=== PATIENT | female | born 1955 | race Caucasian/White ===

== ENCOUNTER 2024-12-01 11:07 | Inpatient (IN) | payer OTHER, SELFPAY ==
[2024-12-01] VITALS (26 sets, daily range): BP systolic 121–220; BP diastolic 43–84; PULSE 78–95; RESP 16–23; TEMP 37.4; O2SAT 91–100; BMI 25.7
--- NOTE | 2024-12-01 11:15 | DI.RAD.S_ITS ---
PROCEDURE: XR HIP W PEL IF DONE LT 2V INDICATIONS: left hip pain TECHNIQUE: 2 views of the hip were acquired. COMPARISON: None. FINDINGS: Bones: Nondisplaced fracture of the left femoral neck. Soft tissues: No suspicious soft tissue calcifications or masses. IMPRESSION: Nondisplaced fracture of the left femoral neck. Dictated by: Elpidio Martinez M.D. on 12/01/2024 at 11:48 Approved by: Elpidio Martinez M.D. on 12/01/2024 at 11:49
--- NOTE | 2024-12-01 11:20 | ED.GENADULT ---
HPI - General Adult General Chief complaint: Fall Stated complaint: Fall at 0700, Left hip pain Time Seen by Provider: 12/01/24 11:14 History of Present Illness HPI narrative: 69-year-old female lives at home and lost her balance 0730, falling to the left side, complained of left hip area discomfort since then. No other injuries recalled. She takes Plavix antiplatelet, but no other blood thinner medications. She would not strike her head. No nausea or vomiting. No focal weakness to face arm or leg. No focal numbness to face arm or leg. She denies pain to her neck, upper back, mid to low back. She is not seem to have any discomfort to her left thigh, knee, foreleg, ankle, foot. Related Data Home Medications Medication Instructions Recorded Confirmed clopidogrel 75 mg tablet 75 mg PO DAILY 12/01/24 12/01/24 Allergies Allergy/AdvReac Type Severity Reaction Status Date / Time lisinopril Allergy Verified 12/01/24 11:13 Patient History Social History household members: spouse Smoking Status: Former smoker Exam Narrative Exam Narrative: GENERAL: Well-developed patient, in mild distress. HEAD: Atraumatic. Normocephalic. EYES: Pupils equal round and reactive. Extraocular motions intact. No scleral icterus. No injection or drainage. ENT: Nose without bleeding, purulent drainage. Throat without erythema, tonsillar hypertrophy or exudate. Airway patent. NECK: Trachea midline. Non tender CARDIOVASCULAR: Regular rate and rhythm without murmurs, gallops, or rubs. RESPIRATORY: Clear to auscultation. Breath sounds equal bilaterally. No wheezes, rales, or rhonchi. GASTROINTESTINAL: Abdomen soft, non-tender, nondistended. EXTREMITIES: Tenderness to lateral trochanteric region left hip, mild tenderness left anterior hip. No limb length discrepancies. No tenderness along the left femur, knee, foreleg, ankle, foot/toes. BACK: Nontender without deformity or crepitance. No flank tenderness. NEURO: AOx3. Motor functions grossly nonfocal SKIN: No rash or erythema of visible areas Initial Vital Signs Initial Vital Signs: Vital Signs Pulse Oximetry 93 12/01/24 11:13 Course Orders Ordered: ED Orders 12/01/24 13:29 XR chest 1V Stat EKG-12 Lead Stat 12/01/24 13:46 Urinalysis and Microscopic Stat Urine Culture Stat 12/01/24 14:00 CBC Auto Diff [Complete Blood Count AUTO DIFF] Stat CMP [Comprehensive Metabolic Panel] Stat Creatine Kinase Stat Prothrombin Time INR Stat 12/01/24 18:51 BMP [Basic Metabolic Panel] Stat Acetaminophen (Acetaminophen 325 Mg Tablet) 650 mg PO Q6H [facility] Last Admin: 12/01/24 17:48 Dose: 650 mg Documented By: SB Albuterol/Ipratropium (Albuterol/Ipratropium 3 Ml Ampul) 3 ml INH Q1H PRN PRN Reason: Shortness Of Breath Bisacodyl (Bisacodyl 10 Mg Supp) 10 mg NC DAILY PRN PRN Reason: Constipation Docusate Sodium (Docusate 100 Mg Capsule) 100 mg PO BID [facility] Last Admin: 12/01/24 20:24 Dose: 100 mg Documented By: LU Hydromorphone HCl (Hydromorphone 0.5 Mg Inj) 0.5 mg IV Q2H PRN PRN Reason: Pain, Severe (7-10) Sodium Chloride (Normal Saline 0.45%) 1,000 mls @ 100 mls/hr IV CONT [facility] Last Admin: 12/01/24 17:52 Dose: 100 mls/hr Documented By: CONCETTA Ceftriaxone Sodium 1,000 mg/ (Sodium Chloride) 100 mls @ 200 mls/hr IV Q24H [facility] Last Admin: 12/01/24 20:23 Dose: 200 mls/hr Documented By: LU Ibuprofen (Ibuprofen 400 Mg Tablet) 400 mg PO Q4H [facility] Last Admin: 12/01/24 20:24 Dose: 400 mg Documented By: Admin: 12/01/24 17:49 Dose: Not Given Documented By: CONCETTA Magnesium Hydroxide (Magnesium Hydroxide 30 Ml Udc) 30 ml PO DAILY PRN PRN Reason: Constipation Naloxone HCl (Naloxone 0.4 Mg/Ml Vial) 0.2 mg IV Q2MIN PRN PRN Reason: Opiate Reversal Ondansetron HCl (Ondansetron 4 Mg Odt) 4 mg PO Q8HR PRN PRN Reason: Nausea And Vomiting Oxycodone HCl (Oxycodone Ir 5 Mg Tablet) 5 mg PO Q3H PRN PRN Reason: Pain, Moderate (4-6) Last Admin: 12/01/24 20:23 Dose: 5 mg Documented By: LU Sennosides (Sennosides 8.6 Mg Tablet) 17.2 mg PO BEDTIME [facility] Last Admin: 12/01/24 20:23 Dose: 17.2 mg Documented By: MM Discontinued Medications Amlodipine Besylate (Amlodipine 5 Mg Tablet) 2.5 mg PO NOW ONE Stop: 12/01/24 18:41 Last Admin: 12/01/24 18:53 Dose: 2.5 mg Documented By: CONCETTA Heparin Sodium (Porcine) (Heparin 5,000 Unit/Ml Vial) 5,000 unit SUBCUT BID PUMA Stop: 12/01/24 16:56 Last Admin: 12/01/24 18:11 Dose: Not Given Documented By: CONCETTA Heparin Sodium (Porcine) (Heparin 5,000 Unit/Ml Vial) 5,000 unit SUBCUT NOW ONE Stop: 12/01/24 18:16 Last Admin: 12/01/24 18:11 Dose: 5,000 unit Documented By: CONCETTA Hydromorphone HCl (Hydromorphone 0.5 Mg Inj) 0.5 mg IV NOW ONE Stop: 12/01/24 11:44 Last Admin: 12/01/24 11:55 Dose: 0.5 mg Documented By: ALYSA Hydromorphone HCl (Hydromorphone 0.5 Mg Inj) 0.5 mg IV NOW ONE Stop: 12/01/24 15:23 Last Admin: 12/01/24 15:42 Dose: 0.5 mg Documented By: ALYSA Lactated Ringer's (Lactated Ringers) 1,000 mls @ 500 mls/hr IV BOLUS ONE Stop: 12/01/24 16:32 Last Infusion: 12/01/24 16:54 Dose: Infused Documented By: Admin: 12/01/24 15:20 Dose: 500 mls/hr Documented By: ALYSA Lactated Ringer's (Lactated Ringers) 1,000 mls @ 500 mls/hr IV BOLUS ONE Stop: 12/01/24 17:15 Last Admin: 12/01/24 15:47 Dose: Not Given Documented By: ALYSA Vital Signs Vital signs: Vital Signs - 8 hr 12/01/24 13:00 12/01/24 13:01 12/01/24 13:01 Pulse Rate 80 80 Respiratory Rate Blood Pressure 130/58 L Pulse Oximetry 99 99 Oxygen Delivery Method Nasal Cannula Nasal Cannula Oxygen Flow Rate 2 2 12/01/24 13:30 12/01/24 13:30 12/01/24 14:00 Pulse Rate 80 84 Respiratory Rate Blood Pressure 137/60 Pulse Oximetry 96 97 Oxygen Delivery Method Nasal Cannula Oxygen Flow Rate 2 12/01/24 14:18 12/01/24 14:18 12/01/24 14:30 Pulse Rate 83 Respiratory Rate Blood Pressure 181/76 H 171/74 H Pulse Oximetry 97 Oxygen Delivery Method Oxygen Flow Rate 12/01/24 14:30 12/01/24 15:00 12/01/24 15:01 Pulse Rate 83 82 Respiratory Rate Blood Pressure 202/84 H Pulse Oximetry 98 98 Oxygen Delivery Method Nasal Cannula Oxygen Flow Rate 2 12/01/24 15:01 12/01/24 15:06 12/01/24 15:06 Pulse Rate 83 85 Respiratory Rate Blood Pressure 190/79 H Pulse Oximetry 97 97 Oxygen Delivery Method Oxygen Flow Rate 12/01/24 15:30 12/01/24 15:30 12/01/24 15:44 Pulse Rate 82 85 Respiratory Rate Blood Pressure 220/83 H Pulse Oximetry 100 98 Oxygen Delivery Method Oxygen Flow Rate 12/01/24 15:44 12/01/24 16:00 12/01/24 16:01 Pulse Rate 81 81 Respiratory Rate 22 22 Blood Pressure 159/72 H Pulse Oximetry 98 98 Oxygen Delivery Method Nasal Cannula Nasal Cannula Oxygen Flow Rate 2 2 12/01/24 16:01 12/01/24 16:30 12/01/24 16:30 Pulse Rate 95 H Respiratory Rate 21 Blood Pressure 187/78 H 196/81 H Pulse Oximetry 99 Oxygen Delivery Method Nasal Cannula Oxygen Flow Rate 2 Medical Decision Making Lab Data Lab results reviewed: Yes I reviewed the patient's lab results. Lab results narrative: White blood cell count 7000, hemoglobin 13.7, platelets 262,000 adequate. Glucose 109. BUN 24 with creatinine 1.78, GFR 31 noted. Sodium 136, potassium 4.4, chloride 101, serum CO2 23. Mild transaminitis, otherwise T bili and alkaline phosphatase studies normal. Urinalysis shows bacteriuria but no inflammatory changes, urine culture ordered by protocol. 12/01/24 14:00 12/01/24 18:51 Labs: Lab Results 12/01/24 12/01/24 Range/Units 13:46 14:00 WBC 7.0 (4.5-11.0) X10^3/uL RBC 4.78 (4.0-5.2) X10^6/uL Hgb 13.7 (12.0-16.0) g/dL Hct 41.9 (36-46) % MCV 87.6 (80-100) fL MCH 28.6 (26-34) PG MCHC 32.7 (30-36) % RDW 14.6 (11.6-14.8) % Plt Count 262 (150-400) X10^3/uL Neut % (Auto) 72.2 (50-75) % Lymph % (Auto) 18.3 L (25-40) % Barron % (Auto) 8.7 (3-14) % Eos % (Auto) 0.0 L (2-4) % Baso % (Auto) 0.8 (0-2) % Neut # (Auto) 5100 (1168-9453) /uL Lymph # (Auto) 1300 (1896-7279) /uL Barron # (Auto) 600 (0-900) /uL Eos # (Auto) 0 (0-450) /uL Baso # (Auto) 100 (0-100) /uL PT 11.2 (9.4-12.5) SECONDS INR 1.0 (0.9-1.3) Sodium 136 L (137-145) mmol/L Potassium 4.4 (3.4-5.1) mmol/L Chloride 101 (98-107) mmol/L Carbon Dioxide 23 (22-32) mmol/L BUN 24 H (7-17) mg/dL Creatinine 1.78 H (0.52-1.04) mg/dL Estimated GFR 31 L (>60) mL/min BUN/Creatinine Ratio 13.5 (6-22) Glucose 109 (80-110) mg/dL Hemoglobin A1c 5.8 (4.0-6.0) % Calcium 9.3 (8.4-10.2) mg/dL Total Bilirubin 1.3 (0.2-1.3) mg/dL AST 47 H (14-36) IU/L ALT 35 H (<35) IU/L Alkaline Phosphatase 69 (38-126) U/L Total Creatine Kinase 48 (30-135) U/L Total Protein 8.1 (6.3-8.2) g/dL Albumin 4.4 (3.5-5.0) g/dL Globulin 3.7 (1.7-4.1) g/dL Albumin/Globulin Ratio 1.2 (1.0-2.8) Urine Color Yellow Urine Appearance Clear Urine pH 5.5 (4.5-8.0) Ur Specific [place] 1.020 (1.000-1.035) Urine Protein 2+ H (Negative) Urine Glucose (UA) Negative (Negative) g/dL Urine Ketones Negative (NEGATIVE) Urine Occult Blood Trace-intact (Negative) Urine Nitrate Negative (Negative) Urine Bilirubin Negative (NEGATIVE) Urine Urobilinogen 0.2 (0.2) E.U./dL Ur Leukocyte Esterase Negative (NEGATIVE) Urine RBC None seen (0-5/HPF) Urine WBC 5-10/hpf H (0-5/HPF) Ur Squamous Epith Cells None seen (0-5/HPF) Urine Bacteria Many (>30) H (None) Ur Culture Indicated? Specimen cultured Vol Urine Centrifuged 10ml (spun) Imaging Data Left hip pelvis x-ray series: Radiologist's Impression: Close Hip X-Ray (Signed) Elpidio Martinez - 12/01/24 Launch?Image [address] [address] XRay Report Signed Patient: Rebecca Schaffer MR#: [id number] : 1955 Acct:[id number] Age/Sex: 69 / F Date of Service: 12/01/24 Loc: ED Accession Number: [id number] Procedure: XR hip w pel if done LT 2V Ordering Provider: Andi Zendejas MD PROCEDURE: XR HIP W PEL IF DONE LT 2V INDICATIONS: left hip pain TECHNIQUE: 2 views of the hip were acquired. COMPARISON: None. FINDINGS: Bones: Nondisplaced fracture of the left femoral neck. Soft tissues: No suspicious soft tissue calcifications or masses. IMPRESSION: Nondisplaced fracture of the left femoral neck. Dictated by: Elpidio Martinez M.D. on 12/01/2024 at 11:48 Approved by: Elpidio Martinez M.D. on 12/01/2024 at 11:49 Chest x-ray: Radiologist's Impression: [address] [address] XRay Report Signed Patient: Rebecca Schaffer MR#: [id number] : 1955 Acct:[id number] Age/Sex: 69 / F Date of Service: 12/01/24 Loc: ED Accession Number: [id number] Procedure: XR chest 1V Ordering Provider: Andi Zendejas MD PROCEDURE: XR CHEST 1V INDICATIONS: preop TECHNIQUE: One view of the chest was acquired. COMPARISON: [facility], CR, XR CHEST 2 VIEWS, 10/14/2024, 9:52. FINDINGS: Surgical changes and devices: None. Lungs and pleura: Similar architectural distortion in the left upper lung zone. Mediastinum: Mediastinal contours appear normal. Heart size is normal. Bones and chest wall: No suspicious bony lesions. Overlying soft tissues appear unremarkable. IMPRESSION: No acute cardiopulmonary abnormality is seen. Similar architectural distortion in the left upper lung zone, probably representing scarring, less likely malignancy. Recommend outpatient chest CT for complete characterization. Dictated by: Elpidio Martinez M.D. on 12/01/2024 at 14:32 Approved by: Elpidio Martinez M.D. on 12/01/2024 at 14:33 ECG Data Attestation: I personally reviewed and interpreted this ECG as follows: Interpretation: Normal sinus rhythm with rate of 84, no obvious ST segment elevation or depression changes. NC 142, QRS 76, QTC 397. [facility] Narrative Medical decision making narrative: 69-year-old female with ground level fall, left-sided hip pain, screening x-rays ordered from triage. Left femoral neck fracture suspected. We will send preop labs. X-ray pelvis with left hip two views. Impressions: ?Nondisplaced fracture of the left femoral neck.? See radiology report. GFR low noted, we will give IV fluid bolusing consider repeat BNP. We will contact Orthopedic surgery. Case discussed with Orthopedic surgery Dr. Victor, defers to anesthesia regarding appropriateness for staying for surgical repair here, though he is willing to perform surgery here. Case discussed with anesthesia, who came to the emergency department and saw patient, who stated that they would call back. Chest x-ray preop study with no acute changes. 1615, anesthesia call back, they are comfortable with proceeding from their standpoint, we will contact Orthopedics again. 1630, case discussed with hospitalist Dr. Bryant who will consult. We will contact Orthopedic surgery again. Case discussed again with hospitalist Dr. Victor who will anticipate doing surgery. 1700, call back from Orthopedic surgery, who reviewed x-rays, nondisplaced appearing, he requests CT pelvis imaging to further plan surgical intervention. Call back also made to hospitalist update plan. Proceed with admission, has minimum patient would need physical therapy if nonoperative approach, but hopefully patient will have a less invasive surgical approach if surgical treatment is deemed necessary. CT Pelvis confirms fracture, impacted nondisplaced Critical Care Time Critical Care Time Critical Care Time: Yes Total Critical Care Time: 35 Attestation: The high probability of a clinically significant, sudden or life threatening deterioration of the [musculoskeletal, cerebrovascular, genitourinary, renal] system(s) required my full and direct attention, intervention and personal management. The aggregate critical care time was [35] minutes. This time is in addition to time spent performing reported procedures but includes the following: [x] Data Review and interpretation [x] Patient assessment and monitoring of vital signs [x] Documentation [x] Medication orders and management Discharge Plan Departure Patient Disposition: Admitted As Inpatient Clinical Impression: Femoral neck fracture, Ground-level fall, Chronic renal insufficiency Admit Date/Time: 12/01/24 16:43 Admit Provider: Gopi Bryant
[2024-12-01] MEDS: HYDROMORPHONE 0.5 MG INJ IV ×2 (11:55→15:42)
--- NOTE | 2024-12-01 13:29 | EKG_ITS ---
[place] [id number] [place] [id number] Test Date: 2024-12-01 Pat Name: Rebecca Schaffer Department: Room: Gender: Female Packager Machine: CEDRICK : 1955 Requested By: Order Number: [id number] Reading MD: Heriberto Heredia MD Measurements Intervals [place] Rate: 84 P: 70 GA: 142 QRS: -49 QRSD: 76 T: 88 QT: 336 QTc: 397 Interpretive Statements Normal sinus rhythm Left axis deviation Cannot rule out Inferior infarct , age undetermined Electronically Signed On 12-02-2024 6:46:38 PDT by Heriberto Heredia MD
--- NOTE | 2024-12-01 13:29 | DI.RAD.S_ITS ---
PROCEDURE: XR CHEST 1V INDICATIONS: preop TECHNIQUE: One view of the chest was acquired. COMPARISON: [facility], CR, XR CHEST 2 VIEWS, 10/14/2024, 9:52. FINDINGS: Surgical changes and devices: None. Lungs and pleura: Similar architectural distortion in the left upper lung zone. Mediastinum: Mediastinal contours appear normal. Heart size is normal. Bones and chest wall: No suspicious bony lesions. Overlying soft tissues appear unremarkable. IMPRESSION: No acute cardiopulmonary abnormality is seen. Similar architectural distortion in the left upper lung zone, probably representing scarring, less likely malignancy. Recommend outpatient chest CT for complete characterization. Dictated by: Elpidio Martinez M.D. on 12/01/2024 at 14:32 Approved by: Elpidio Martinez M.D. on 12/01/2024 at 14:33
[2024-12-01 13:53] LABS: Appearance Urine UA CLEAR; Bilirubin Urine UA NEGATIVE (NEGATIVE); Color Urine UA YELLOW; Glucose Urine UA NEGATIVE (Negative); Ketones Urine UA NEGATIVE (NEGATIVE); Leukocyte Esterase Urine UA NEGATIVE (NEGATIVE); Nitrite Urine UA NEGATIVE (Negative); Occult Blood Urine UA TRACE-INTACT (Negative); Protein Urine UA 2+ (Negative); Urobilinogen Urine UA 0.2 E.U./dL (0.2)
[2024-12-01 13:55] LABS: pH Urine UA 5.5 (4.5-8.0)
[2024-12-01 13:56] LABS: Urine Volume 10mL (spun)
[2024-12-01 13:57] LABS: Bacteria Urine Many (>30); Culture Indicated Urine Specimen Cultured; RBC Urine None Seen (0-5/HPF); Squamous Epithelial Cell Urine None Seen (0-5/HPF); WBC Urine 5-10/HPF (0-5/HPF)
[2024-12-01 14:12] LABS: Add Manual Diff / Slide Review NO; Basophils Absolute Auto 100 /uL (0-100); Basophils Percent Auto 0.8 % (0-2); Eosinophils Absolute Auto 0 /uL (0-450); Hematocrit 41.9 % (36-46); Hemoglobin 13.7 g/dL (12.0-16.0); Lymphocytes Absolute Auto 1300 /uL (1100-4500); Lymphocytes Percent Auto 18.3 % (25-40); Mean Corpuscular HGB Conc 32.7 % (30-36); Mean Corpuscular Hemoglobin 28.6 PG (26-34); Mean Corpuscular Volume 87.6 fL (80-100); Monocytes Absolute Auto 600 /uL (0-900); Monocytes Percent Auto 8.7 % (3-14); Neutrophils Absolute Auto 5100 /uL (1500-7000); Neutrophils Percent Auto 72.2 % (50-75); Platelet Count 262 X10^3/uL (150-400); Red Blood Cell Count 4.78 X10^6/uL (4.0-5.2); Red Cell Distribution Width 14.6 % (11.6-14.8)
[2024-12-01 14:20] LABS: Prothrombin Time 11.2 SECONDS (9.4-12.5)
[2024-12-01 14:24] LABS: Alanine Aminotransferase 35 IU/L (<35); Albumin 4.4 g/dL (3.5-5.0); Albumin Globulin Ratio 1.2 (1.0-2.8); Alkaline Phosphatase 69 U/L (38-126); Aspartate Aminotransferase 47 IU/L (14-36); BUN Creatinine Ratio 13.5 (6-22); Bilirubin Total 1.3 mg/dL (0.2-1.3); Blood Urea Nitrogen 24 mg/dL (7-17); Calcium 9.3 mg/dL (8.4-10.2); Carbon Dioxide 23 mmol/L (22-32); Chloride 101 mmol/L (98-107); Estimated Glomerular Filt Rate 31 mL/min (>60); Globulin 3.7 g/dL (1.7-4.1); Glucose 109 mg/dL (80-110); HEMOLYSIS < 15 (0-50); Potassium 4.4 mmol/L (3.4-5.1); Sodium 136 mmol/L (137-145); Total Protein 8.1 g/dL (6.3-8.2)
--- NOTE | 2024-12-01 14:50 | PC.NURSE ---
verbal order given by Dr Zendejas to place duncan catheter, it is patent and draining cloudy yellow urine, sample sent to the lab
[2024-12-01 15:13] LABS: Creatine Kinase 48 U/L (30-135)
[2024-12-01] MEDS: LACTATED RINGERS 1,000 ML 500 ML IV (15:20)
--- NOTE | 2024-12-01 16:53 | PC.NURSE ---
Patient hypertensive 196/81. provider Aashish made aware, no new orders at this time
--- NOTE | 2024-12-01 17:00 | DI.CT.S_ITS ---
PROCEDURE: CT PEL WO CON INDICATIONS: fem neck fracture TECHNIQUE: Noncontrast 3 mm axial sections acquired through the bony pelvis, with coronal and sagittal reformatting. COMPARISON: [facility], CR, XR HIP W PEL IF DONE LT 2V, 12/01/2024, 11:15. FINDINGS: Image quality: Excellent. Bones: Impacted, nearly nondisplaced subcapital left femoral neck fracture. Femoroacetabular joint remains congruent. There are no other hip or pelvic fractures. Soft tissues: Heavy atherosclerotic calcification in the common iliac arteries. Urinary bladder is decompressed with a Lorenzo catheter. Uterus and ovaries are normal. Visible small and large bowel loops are within normal limits. No intrapelvic free fluid or hematoma. IMPRESSION: Impacted, otherwise nondisplaced subcapital left femoral neck fracture. Dictated by: Yanni Swartz M.D. on 12/01/2024 at 17:24 Approved by: Yanni Swartz M.D. on 12/01/2024 at 17:28
--- NOTE | 2024-12-01 17:13 | PM.HP.1 ---
History of Present Illness History of Present Illness Chief complaint: Fall at 0700, Left hip pain Narrative: Chief complaint: Left hip pain following ground level fall with nondisplaced femoral neck fracture History of present illness: 69-year-old female with a history of COPD type 2 diabetes obesity chronic kidney disease had a ground level fall this morning late on the hard floor waiting for the pain to subside which did not. Eventually patient was brought to the emergency department for an evaluation. Findings in the ER significant for left femoral neck fracture nondisplaced. Case was discussed with anesthesia and Orthopedic surgery the consensus was to get a CT to evaluate to see if it requires surgery or could be managed conservatively. Review of systems: Patient reports a 20-40 lb involuntary weight loss over September and October due to being unable to eat or drink without vomiting food back up or with abdominal pain. GI evaluation with a on site wastewater systems technician planned prior to this accident. No chest pain shortness for breath palpitations No paresthesia or paresis No urinary symptoms Physical exam: Elderly female alert but confused and difficulty focusing after receiving hydromorphone HEENT poor dentition otherwise unremarkable Neck no carotid bruits or JVD Heart rate and rhythm regular loud 3/6 systolic murmur most audible in the aortic position Lungs with end inspiratory wheezes and shortened respiratory phases Abdomen no masses bowel sounds present nontender Extremities no cyanosis clubbing edema Good capillary refills and dorsalis pedis pulses bilaterally PFSH Social History Smoking Status: Never smoker Meds Home Medications and Allergies Allergies Allergy/AdvReac Type Severity Reaction Status Date / Time lisinopril Allergy Verified 12/01/24 11:13 Exam Vital Signs (past 8 hours): - 12/01/24 11:13 12/01/24 11:14 12/01/24 11:14 Pulse Rate 83 Respiratory Rate 16 Blood Pressure 160/68 H 160/68 H Pulse Oximetry 93 93 Oxygen Delivery Method Room Air Oxygen Flow Rate 12/01/24 11:14 12/01/24 11:30 12/01/24 11:34 Pulse Rate 81 78 78 Respiratory Rate Blood Pressure Pulse Oximetry 94 91 93 Oxygen Delivery Method Room Air Oxygen Flow Rate 12/01/24 11:34 12/01/24 12:00 12/01/24 12:01 Pulse Rate 81 Respiratory Rate Blood Pressure 137/66 121/57 L Pulse Oximetry 94 Oxygen Delivery Method Oxygen Flow Rate 12/01/24 12:01 12/01/24 12:30 12/01/24 12:30 Pulse Rate 81 79 Respiratory Rate Blood Pressure 148/66 H Pulse Oximetry 93 96 Oxygen Delivery Method Nasal Cannula Nasal Cannula Oxygen Flow Rate 2 2 12/01/24 13:00 12/01/24 13:01 12/01/24 13:01 Pulse Rate 80 80 Respiratory Rate Blood Pressure 130/58 L Pulse Oximetry 99 99 Oxygen Delivery Method Nasal Cannula Nasal Cannula Oxygen Flow Rate 2 2 12/01/24 13:30 12/01/24 13:30 12/01/24 14:00 Pulse Rate 80 84 Respiratory Rate Blood Pressure 137/60 Pulse Oximetry 96 97 Oxygen Delivery Method Nasal Cannula Oxygen Flow Rate 2 12/01/24 14:18 12/01/24 14:18 12/01/24 14:30 Pulse Rate 83 Respiratory Rate Blood Pressure 181/76 H 171/74 H Pulse Oximetry 97 Oxygen Delivery Method Oxygen Flow Rate 12/01/24 14:30 12/01/24 15:00 12/01/24 15:01 Pulse Rate 83 82 Respiratory Rate Blood Pressure 202/84 H Pulse Oximetry 98 98 Oxygen Delivery Method Nasal Cannula Oxygen Flow Rate 2 12/01/24 15:01 12/01/24 15:06 12/01/24 15:06 Pulse Rate 83 85 Respiratory Rate Blood Pressure 190/79 H Pulse Oximetry 97 97 Oxygen Delivery Method Oxygen Flow Rate 12/01/24 15:30 12/01/24 15:30 12/01/24 15:44 Pulse Rate 82 85 Respiratory Rate Blood Pressure 220/83 H Pulse Oximetry 100 98 Oxygen Delivery Method Oxygen Flow Rate 12/01/24 15:44 12/01/24 16:00 12/01/24 16:01 Pulse Rate 81 81 Respiratory Rate 22 22 Blood Pressure 159/72 H Pulse Oximetry 98 98 Oxygen Delivery Method Nasal Cannula Nasal Cannula Oxygen Flow Rate 2 2 12/01/24 16:01 12/01/24 16:30 12/01/24 16:30 Pulse Rate 95 H Respiratory Rate 21 Blood Pressure 187/78 H 196/81 H Pulse Oximetry 99 Oxygen Delivery Method Nasal Cannula Oxygen Flow Rate 2 12/01/24 17:00 12/01/24 17:01 12/01/24 17:01 Pulse Rate 90 89 Respiratory Rate 23 23 Blood Pressure 180/76 H Pulse Oximetry 96 95 Oxygen Delivery Method Oxygen Flow Rate Oxygen Delivery Method Nasal Cannula Oxygen Flow Rate 2 Narrative Exam Narrative: Physical exam: Elderly female alert but confused and difficulty focusing after receiving hydromorphone HEENT poor dentition otherwise unremarkable Neck no carotid bruits or JVD Heart rate and rhythm regular loud 3/6 systolic murmur most audible in the aortic position Lungs with end inspiratory wheezes and shortened respiratory phases Abdomen no masses bowel sounds present nontender Extremities no cyanosis clubbing edema Good capillary refills and dorsalis pedis pulses bilaterally Objective Labs 12/01/24 14:00 12/01/24 14:00 Labs: Laboratory Results - last 24 hr 12/01/24 12/01/24 13:46 14:00 WBC 7.0 RBC 4.78 Hgb 13.7 Hct 41.9 MCV 87.6 MCH 28.6 MCHC 32.7 RDW 14.6 Plt Count 262 Neut % (Auto) 72.2 Lymph % (Auto) 18.3 L [place] % (Auto) 8.7 Eos % (Auto) 0.0 L Baso % (Auto) 0.8 Neut # (Auto) 5100 Lymph # (Auto) 1300 [place] # (Auto) 600 Eos # (Auto) 0 Baso # (Auto) 100 PT 11.2 INR 1.0 Sodium 136 L Potassium 4.4 Chloride 101 Carbon Dioxide 23 BUN 24 H Creatinine 1.78 H Estimated GFR 31 L BUN/Creatinine Ratio 13.5 Glucose 109 Calcium 9.3 Total Bilirubin 1.3 AST 47 H ALT 35 H Alkaline Phosphatase 69 Total Creatine Kinase 48 Total Protein 8.1 Albumin 4.4 Globulin 3.7 Albumin/Globulin Ratio 1.2 Urine Color Yellow Urine Appearance Clear Urine pH 5.5 Ur Specific [place] 1.020 Urine Protein 2+ H Urine Glucose (UA) Negative Urine Ketones Negative Urine Occult Blood Trace-intact Urine Nitrate Negative Urine Bilirubin Negative Urine Urobilinogen 0.2 Ur Leukocyte Esterase Negative Urine RBC None seen Urine WBC 5-10/hpf H Ur Squamous Epith Cells None seen Urine Bacteria Many (>30) H Ur Culture Indicated? Specimen cultured Vol Urine Centrifuged 10ml (spun) Assessment & Plan Assessment & Plan narrative: Nondisplaced closed Left femoral neck fracture secondary to ground level fall: -Further evaluation with CT imaging and final decision of whether or not to take to surgery by Orthopedic surgery -1 dose of subcu heparin for DVT prophylaxis tonight -if surgery is indicated there are no prohibitive risks to performing surgery Reduced GFR chronic kidney disease in setting of previous diabetes -avoid nephrotoxic agents -renally dose medications COPD: Stable without exacerbation -nebulizer as needed for wheezing or shortness of breath Type 2 diabetes no longer requiring medication due to weight loss -monitor a.c. HS glucoses Unintentional weight loss 20-40 lb in September and October -is established with on site wastewater systems technician to determine the etiology DVT prophylaxis: 1 dose of 5000 units subQ heparin and then discretion per Orthopedic surgery Full code robby Corrales spent 55 minutes evaluating this patient with a least 50% of the time in direct contact with the patient in evaluation Time-Based Coding :: [TOTAL MINUTES] spent with patient and on the chart (including review of chart, obtaining history, exam, reviewing outside data, placing orders, documenting exam and treatment plan, and counseling patient) on [DATE].
[2024-12-01 17:31] LABS: Hemoglobin A1C% w Est Avg Glu 5.8 % (4.0-6.0)
[2024-12-01] MEDS: ACETAMINOPHEN 325 MG TABLET 650 MG PO (17:48)
[2024-12-01] MEDS: SODIUM CHLORIDE 0.45% 1,000 ML 100 ML IV (17:52)
[2024-12-01] MEDS: HEPARIN 5,000 UNIT/ML VIAL 5000 UNIT SUBCUT (18:11)
[2024-12-01] MEDS: AMLODIPINE 5 MG TABLET 2.5 MG PO (18:53)
--- NOTE | 2024-12-01 19:02 | PC.NURSE ---
Day shift: Notified MD Bryant that patient's BP was persistently high and that patient has cloudy urine, low grade temperature, and positive UA. MD ordered PO BP medication and IV antibiotics. Also clarified with MD Bryant regarding 1 time heparin dose - he stated yes, give it due to her being high risk for DVTs. Will continue to monitor.
[2024-12-01 19:14] LABS: BUN Creatinine Ratio 13.6 (6-22); Blood Urea Nitrogen 23 mg/dL (7-17); Calcium 8.5 mg/dL (8.4-10.2); Carbon Dioxide 23 mmol/L (22-32); Chloride 102 mmol/L (98-107); Estimated Glomerular Filt Rate 33 mL/min (>60); Glucose 139 mg/dL (80-110); HEMOLYSIS < 15 (0-50); Potassium 4.3 mmol/L (3.4-5.1); Sodium 134 mmol/L (137-145)
[2024-12-01] MEDS: OXYCODONE IR 5 MG TABLET PO (20:23)
[2024-12-01] MEDS: SENNOSIDES 8.6 MG TABLET 17.2 MG PO (20:23)
[2024-12-01] MEDS: cefTRIAXone 1,000 MG in SODIUM CHLORIDE 0.9% 100 ML 200 MG IV (20:23)
[2024-12-01] MEDS: DOCUSATE 100 MG CAPSULE PO (20:24)
[2024-12-01] MEDS: IBUPROFEN 400 MG TABLET PO (20:24)
[2024-12-02] VITALS (14 sets, daily range): BP systolic 113–165; BP diastolic 43–54; PULSE 72–88; RESP 10–20; TEMP 36.3–36.9; O2SAT 92–100; BMI 25.7
[2024-12-02] MEDS: OXYCODONE IR 5 MG TABLET PO ×3 (03:53→21:24)
[2024-12-02] MEDS: IBUPROFEN 400 MG TABLET PO (04:59)
[2024-12-02] MEDS: ACETAMINOPHEN 325 MG TABLET 650 MG PO ×3 (04:59→22:27)
[2024-12-02] MEDS: SODIUM CHLORIDE 0.45% 1,000 ML 100 ML IV (05:40)
[2024-12-02 06:11] LABS: Add Manual Diff / Slide Review NO; Basophils Absolute Auto 0 /uL (0-100); Basophils Percent Auto 0.5 % (0-2); Eosinophils Absolute Auto 0 /uL (0-450); Eosinophils Percent Auto 0.1 % (2-4); Hemoglobin 12.2 g/dL (12.0-16.0); Lymphocytes Absolute Auto 1000 /uL (1100-4500); Lymphocytes Percent Auto 14.8 % (25-40); Mean Corpuscular HGB Conc 32.9 % (30-36); Mean Corpuscular Hemoglobin 29.1 PG (26-34); Mean Corpuscular Volume 88.4 fL (80-100); Monocytes Absolute Auto 600 /uL (0-900); Monocytes Percent Auto 9.7 % (3-14); Neutrophils Absolute Auto 4900 /uL (1500-7000); Neutrophils Percent Auto 74.9 % (50-75); Platelet Count 202 X10^3/uL (150-400); Red Blood Cell Count 4.18 X10^6/uL (4.0-5.2); Red Cell Distribution Width 14.8 % (11.6-14.8); White Blood Cell Count 6.6 X10^3/uL (4.5-11.0)
[2024-12-02 06:20] LABS: BUN Creatinine Ratio 14.1 (6-22); Blood Urea Nitrogen 24 mg/dL (7-17); Calcium 8.4 mg/dL (8.4-10.2); Carbon Dioxide 23 mmol/L (22-32); Chloride 101 mmol/L (98-107); Estimated Glomerular Filt Rate 33 mL/min (>60); Glucose 109 mg/dL (80-110); HEMOLYSIS < 15 (0-50); Potassium 4.4 mmol/L (3.4-5.1); Sodium 134 mmol/L (137-145)
[2024-12-02] MEDS: DOCUSATE 100 MG CAPSULE PO ×2 (09:22→20:21)
--- NOTE | 2024-12-02 11:04 | PC.NURSE ---
Patient report given to preop MEME Adames at 11:00 a.m. Patient is transported via bed at 11:05 to pre-op with Waqas VALENTINE.
[2024-12-02] MEDS: ALBUTEROL/IPRATROPIUM 3 ML AMPUL INH (11:26)
--- NOTE | 2024-12-02 11:39 | P.HP_ITS ---
History of Present Illness History of Present Illness Chief complaint: Fall at 0700, Left hip pain Narrative: CHIEF COMPLAINT: Femoral neck fracture. PATIENT SUMMARY: The patient is a 69-year-old female who presented with a femoral neck fracture who has multiple significant medical comorbidites. HISTORY OF PRESENT ILLNESS: The patient is a 69-year-old female who presented with a femoral neck fracture. The fracture occurred after the patient fell while getting up to go to the bathroom. This incident happened yesterday. The patient reported losing her balance and fell, resulting in the injury to her left hip. She has not reported pain in any other areas. Her medical history is significant for chronic kidney disease, severe chronic obstructive pulmonary disease (COPD), and a history of multiple strokes. Given these conditions, a decision was made to perform a smaller surgical procedure involving the placement of three screws to minimize blood loss and postoperative complications. The patient is also known to have poorly controlled diabetes. PAST MEDICAL HISTORY: - Chronic kidney disease - Severe chronic obstructive pulmonary disease (COPD) - Multiple strokes - Diabetes mellitus (poorly controlled) SOCIAL HISTORY: - The patient reported not consuming alcohol or smoking. FAMILY HISTORY: Not available. REVIEW OF SYSTEMS: Musculoskeletal: Positive for left hip pain. Negative for other joint pain or swelling. Neurological: Negative for headache, dizziness, or syncope following the fall. VITALS AND PHYSICAL EXAM: Musculoskeletal: SILT L2-S1 nerve distributions on left lower extremity. No open wounds. Flexes and extends hallux and ankle. Not available. ASSESSMENT: 1. Femoral neck fracture: The fracture is likely due to the fall the patient experienced, considering her medical history and current symptoms. The immediate plan is to stabilize the fracture with screws. 2. Chronic kidney disease: The patient's chronic kidney disease necessitated a change in the surgical approach to minimize blood loss and potential complications. 3. Chronic obstructive pulmonary disease: The severe COPD poses a risk during surgery, prompting a less invasive approach to prevent exacerbation of respiratory issues. 4. Diabetes mellitus: Poorly controlled diabetes is a concern for wound healing and infection risk postoperatively. PLAN: Treatment: - Surgical intervention: Placement of three screws to stabilize the femoral neck fracture. - Medical management: Continue monitoring and addressing chronic conditions postoperatively. Tests: - Postoperative monitoring of kidney function and respiratory status. Patient Education: - Discussed the surgical procedure, potential risks, and recovery timeline with the patient. - Informed the patient about the importance of managing her chronic conditions to reduce complications. Follow-Up: - Plan for discharge to a [facility] facility to aid in recovery and rehabilitation. - Arrange regular follow-up visits to monitor healing and manage chronic conditions. Disposition: - The patient was advised of the surgical plan and potential risks, and consent was obtained for the procedure. [facility] Social History household members: spouse Smoking Status: Former smoker alcohol intake: never Meds Home Medications and Allergies Home Medications Medication Instructions Recorded Confirmed Type clopidogrel 75 mg tablet 75 mg PO DAILY 12/01/24 12/01/24 History Allergies Allergy/AdvReac Type Severity Reaction Status Date / Time lisinopril Allergy Verified 12/01/24 11:13 Exam Vital Signs (past 8 hours): - 12/02/24 05:00 12/02/24 08:00 12/02/24 09:00 Temperature 97.3 F L Pulse Rate 77 Respiratory Rate 16 Blood Pressure 113/48 L Pulse Oximetry 93 92 92 Oxygen Delivery Method Nasal Cannula Nasal Cannula Oxygen Flow Rate 2 2 2 12/02/24 11:17 Temperature 98.4 F Pulse Rate 72 Respiratory Rate 16 Blood Pressure 114/54 L Pulse Oximetry 96 Oxygen Delivery Method Nasal Cannula Oxygen Flow Rate 2 Fraction of Inspired Oxygen 28 SaO2/FiO2 Ratio 339 Oxygen Delivery Method Nasal Cannula Oxygen Flow Rate 2 Objective Labs 12/02/24 05:10 12/02/24 05:10 Labs: Laboratory Results - last 24 hr 12/01/24 12/01/24 12/01/24 13:46 14:00 18:51 WBC 7.0 RBC 4.78 Hgb 13.7 Hct 41.9 MCV 87.6 MCH 28.6 MCHC 32.7 RDW 14.6 Plt Count 262 Neut % (Auto) 72.2 Lymph % (Auto) 18.3 L [place] % (Auto) 8.7 Eos % (Auto) 0.0 L Baso % (Auto) 0.8 Neut # (Auto) 5100 Lymph # (Auto) 1300 [place] # (Auto) 600 Eos # (Auto) 0 Baso # (Auto) 100 PT 11.2 INR 1.0 Sodium 136 L 134 L Potassium 4.4 4.3 Chloride 101 102 Carbon Dioxide 23 23 BUN 24 H 23 H Creatinine 1.78 H 1.69 H Estimated GFR 31 L 33 L BUN/Creatinine Ratio 13.5 13.6 Glucose 109 139 H Hemoglobin A1c 5.8 Calcium 9.3 8.5 Total Bilirubin 1.3 AST 47 H ALT 35 H Alkaline Phosphatase 69 Total Creatine Kinase 48 Total Protein 8.1 Albumin 4.4 Globulin 3.7 Albumin/Globulin Ratio 1.2 Urine Color Yellow Urine Appearance Clear Urine pH 5.5 Ur Specific [place] 1.020 Urine Protein 2+ H Urine Glucose (UA) Negative Urine Ketones Negative Urine Occult Blood Trace-intact Urine Nitrate Negative Urine Bilirubin Negative Urine Urobilinogen 0.2 Ur Leukocyte Esterase Negative Urine RBC None seen Urine WBC 5-10/hpf H Ur Squamous Epith Cells None seen Urine Bacteria Many (>30) H Ur Culture Indicated? Specimen cultured Vol Urine Centrifuged 10ml (spun) 12/02/24 05:10 WBC 6.6 RBC 4.18 Hgb 12.2 Hct 37.0 MCV 88.4 MCH 29.1 MCHC 32.9 RDW 14.8 Plt Count 202 Neut % (Auto) 74.9 Lymph % (Auto) 14.8 L [place] % (Auto) 9.7 Eos % (Auto) 0.1 L Baso % (Auto) 0.5 Neut # (Auto) 4900 Lymph # (Auto) 1000 L [place] # (Auto) 600 Eos # (Auto) 0 Baso # (Auto) 0 PT INR Sodium 134 L Potassium 4.4 Chloride 101 Carbon Dioxide 23 BUN 24 H Creatinine 1.70 H Estimated GFR 33 L BUN/Creatinine Ratio 14.1 Glucose 109 Hemoglobin A1c Calcium 8.4 Total Bilirubin AST ALT Alkaline Phosphatase Total Creatine Kinase Total Protein Albumin Globulin Albumin/Globulin Ratio Urine Color Urine Appearance Urine pH Ur Specific [place] Urine Protein Urine Glucose (UA) Urine Ketones Urine Occult Blood Urine Nitrate Urine Bilirubin Urine Urobilinogen Ur Leukocyte Esterase Urine RBC Urine WBC Ur Squamous Epith Cells Urine Bacteria Ur Culture Indicated? Vol Urine Centrifuged Assessment & Plan Time-Based Coding :: [TOTAL MINUTES] spent with patient and on the chart (including review of chart, obtaining history, exam, reviewing outside data, placing orders, documenting exam and treatment plan, and counseling patient) on [DATE]. Quality VTE Deep Vein Thrombosis/Pulmonary Embolism Present on Admission: No
[2024-12-02] MEDS: DEXTROSE 50 % IN WATER 25 GM/50 ML SYRINGE IV (11:40)
[2024-12-02] MEDS: LIDOCAINE 1% 20 ML SUBCUT (11:58)
--- NOTE | 2024-12-02 13:21 | CM.DANOTE ---
Initial DCP Assessment Visit Note Reviewed EMR and team rounds for medical status and updates. This TABLE COVER FOLDER was unable to meet with pt today due to her already have been taken down to surgery. Pt resides independently in her own home with her spouse in their own home with spouse in [place]. Her spouse will plan to transport her home once she's medically stable for d/c, likely 3-4-more days. Pt's surgery now delayed until Sun, 12/03. Payor: [facility] Adv PCP: Alejandrina Mojica Pt is a 69 year-old F who presented to the ED last evening after she lost her balance at home, resulting in a GLF onto her L-hip. Hip x-ray confirmed a nondisplaced fracture of the L-femoral neck. Ortho was consulted, and the plan was made for a L-total hip arthroplasty surgery for 12/03, delayed due to ECHO findings today. DCP will continue to monitor and assist with any final PT/OT needs/recommendations. Discharge Planning/Care Management CM Discharge Assessment Start: 12/02/24 13:19 Freq: Status: Active Protocol: Document 12/02/24 13:19 DPL (Rec: 12/02/24 13:21 DPL [id number]) Discharge Planning Assessment Assigned Plant Wrapper KENNY Herring Advance Directives? No History Provided By Medical Record Has Patient been admitted in last 30 No days? Prior Living Arrangements House Household Members spouse Type of transporation used prior to Drives own vehicle admit Independent with ADL's Yes Is patient alert and oriented? Yes Comment N/A Caregiver for Another No Comment N/A Comment Pending final PT/OT evals and recs for d/c. Barriers to Discharge No Additional Comment Pending Whiteboard Updated in Patient Room with Yes name and ext. # of Plant Wrapper Review Status In Process Please Provide Date Initial DC 12/02/24 Assessment Was Performed
--- NOTE | 2024-12-02 13:22 | DI.ECHO.S_ITS ---
[facility] : : [id number] : [place] : : [id number] : : Phone: [phone] Echocardiogram Report + + :Name: KIRBY DE SANTIAGO Study Date: 12/02/2024 Height: 64 in : :[facility] ReadingLocation: Weight: 150 lb : : Gender: Female BSA: 1.7 m2 : :: 1955 Age: 69 yrs BP: 148/50 mmHg: :Reason For Study: MURMUR, HYPOTENSION : :Ordering Physician: DIANE, : :EUGENIA GUAN Performed By: Brandi Vang : :Referring: EUGENIA CONTRERAS MD : + + Interpretation Summary The ejection fraction is estimated to be 60-65%. Diastolic function could not be accurately assessed due to confounding valvular disease. The right ventricle is normal in size and function. There is mild mitral stenosis. Pulmonary artery pressures cannot be estimated because of the lack of a measurable TR jet velocity but the IVC suggests a CVP of around 8 mmHg. Procedure: A two-dimensional transthoracic echocardiogram with color flow and Doppler was performed. The study quality was technically difficult. There is no prior echocardiogram noted for this patient. Patient was scanned in a supine position due to left hip fracture. The patient was in sinus rhythm with heart rates between 73-83 bpm during the exam. Left Ventricle: The left ventricle is normal in size. Left ventricular wall thickness is borderline increased. The ejection fraction is estimated to be 60-65%. Diastolic function could not be accurately assessed due to confounding valvular disease. Right Ventricle: The right ventricle is normal in size and function. Atria: The left atrial size is normal. Right atrial size is normal. There is no Doppler evidence for an interatrial shunt. Mitral Valve: The mitral valve leaflets are mildly calcified. There is mild mitral annular calcification. The mitral valve mean gradient is 3.4 mmHg. The mitral valve area by pressure half-time is 2.8 m2. There is mild mitral stenosis. There is trace mitral regurgitation. Aortic Valve: The aortic valve opens well. There is no aortic valve stenosis. No aortic regurgitation is present. Tricuspid Valve: The tricuspid valve is normal. There is a trace or physiologic amount of tricuspid regurgitation. Pulmonary artery pressures cannot be estimated because of the lack of a measurable TR jet velocity but the IVC suggests a CVP of around 8 mmHg. Pulmonic Valve: The pulmonic valve leaflets are thin and pliable; valve motion is normal. There is no pulmonic valvular regurgitation. Great Vessels: The aortic root is normal size. The dimensions of the ascending aorta are normal. The IVC is dilated (diameter is greater than 2.1 cm) yet it collapses greater than 50% with a sniff. This suggests a right atrial pressure of 8 mm Hg. Pericardium/ Pleura There is no pericardial effusion. There is no pleural effusion. MMode/2D Measurements & Calculations LVIDd: 4.5 cm LVOT diam: 2.0 cm LVIDs: 3.1 cm Ao root diam: 3.1 cm FS: 30.3 % asc Aorta Diam: 3.2 cm EPSS: 0.96 cm Ao Arch Diam (Prox Trans): 2.3 cm IVSd: 1.1 cm LVPWd: 0.75 cm LV johnson. diameter/BSA (cm/m^2): 2.6 LV sys. diameter/BSA (cm/m^2): 1.8 LA A2 area: 15.9 cm2 RA long axis: 4.1 cm LA A4 area: 10.9 cm2 RA area: 13.2 cm2 LA length (vol): 4.0 cm RA vol: 35.5 ml LA vol: 37.2 ml RA : 20.5 ml/m2 LA vol index: 21.5 ml/m2 IVC diam: 2.5 cm RVD1 (basal): 3.7 cm RVD2 (mid): 2.6 cm TAPSE: 1.8 cm Doppler Measurements & Calculations Ao V2 max: 154.6 cm/sec LVOT Max Brice: 80.4 cm/sec Ao V2 mean: 108.6 cm/sec LV V1 max P.6 mmHg Ao max P.6 mmHg LV V1 VTI: 17.8 cm Ao mean P.6 mmHg MYLA(I,D): 1.8 cm2 Ao V2 VTI: 29.8 cm MYLA(V,D): 1.6 cm2 sev ratio: 0.60 MYLA indexed to BSA (cm^2/m^2): 1.0 MV E max brice: 119.5 cm/sec PA V2 max: 86.4 cm/sec MV A max brice: 133.5 cm/sec PA V2 mean: 62.5 cm/sec MV E/A: 0.89 PA mean P.7 mmHg Med Peak E' Brice: 6.4 cm/sec PA pr(Accel): 37.9 mmHg E/E' med: 18.6 Lat Peak E' Brice: 6.2 cm/sec E/E' lat: 19.3 E/e' average: 18.9 MV dec time: 0.25 sec MVA(VTI): 1.4 cm2 MV V2 mean: 80.2 cm/sec SV(LVOT): 54.2 ml MV mean P.4 mmHg MV V2 VTI: 38.6 cm MV P1/2t-pr_phl: 80.1 msec Reading Physician:04:56 PM
--- NOTE | 2024-12-02 13:30 | PM.PN.1 ---
Subjective Subjective Interval history: Patient was taken back to the operating room for surgery today and in the process of inducing anesthesia was found to be profoundly hypotensive. After switching the blood pressure cuff to the other arm her blood pressure improved however this provoked a discussion regarding the best course of action in her case. She has severe COPD and was receiving a nebulizer treatment in the preoperative holding area prior to rolling back to surgery today. She also has poor kidney function although she is not on dialysis. She also has a murmur which was identified on her preoperative exam. Given the combination of poor renal and pulmonary function with additional possible poor cardiac function it is an open question whether our facility is the most appropriate place for her to receive surgical care. Her femoral neck fracture is a valgus impacted fracture which does warrant surgery. In many cases I would perform a total hip arthroplasty or hemiarthroplasty for this type of injury however in her case I had planned to proceed with fixation in the form of 3 cannulated screws in order to limit operative time and blood loss. This could still lead to postoperative issues however and we want to ensure that we have the capacity to care for her postoperatively. In order to further assess this we are going to get an echocardiogram. If we determine that we have the capacity to care for her at this facility I could return to do the surgery tomorrow evening. Alternatively we may determined that she is best cared for at a facility with higher level ICU care given her multiple medical comorbidities. We will make that determination pending the results of the echocardiogram and any additional testing that is undertaken throughout the day today. Exam Vital Signs (past 8 hours): - 12/02/24 08:00 12/02/24 09:00 12/02/24 11:17 Temperature 97.3 F L 98.4 F Pulse Rate 77 72 Respiratory Rate 16 16 Blood Pressure 113/48 L 114/54 L Pulse Oximetry 92 92 96 Oxygen Delivery Method Nasal Cannula Nasal Cannula Oxygen Flow Rate 2 2 2 Fraction of Inspired Oxygen 28 SaO2/FiO2 Ratio 339 Oxygen Delivery Method Nasal Cannula Oxygen Flow Rate 2 Objective Labs 12/02/24 05:10 12/02/24 05:10 Labs: Laboratory Results - last 24 hr 12/01/24 12/01/24 12/01/24 13:46 14:00 18:51 WBC 7.0 RBC 4.78 Hgb 13.7 Hct 41.9 MCV 87.6 MCH 28.6 MCHC 32.7 RDW 14.6 Plt Count 262 Neut % (Auto) 72.2 Lymph % (Auto) 18.3 L [place] % (Auto) 8.7 Eos % (Auto) 0.0 L Baso % (Auto) 0.8 Neut # (Auto) 5100 Lymph # (Auto) 1300 [place] # (Auto) 600 Eos # (Auto) 0 Baso # (Auto) 100 PT 11.2 INR 1.0 Sodium 136 L 134 L Potassium 4.4 4.3 Chloride 101 102 Carbon Dioxide 23 23 BUN 24 H 23 H Creatinine 1.78 H 1.69 H Estimated GFR 31 L 33 L BUN/Creatinine Ratio 13.5 13.6 Glucose 109 139 H Hemoglobin A1c 5.8 Calcium 9.3 8.5 Total Bilirubin 1.3 AST 47 H ALT 35 H Alkaline Phosphatase 69 Total Creatine Kinase 48 Total Protein 8.1 Albumin 4.4 Globulin 3.7 Albumin/Globulin Ratio 1.2 Urine Color Yellow Urine Appearance Clear Urine pH 5.5 Ur Specific [place] 1.020 Urine Protein 2+ H Urine Glucose (UA) Negative Urine Ketones Negative Urine Occult Blood Trace-intact Urine Nitrate Negative Urine Bilirubin Negative Urine Urobilinogen 0.2 Ur Leukocyte Esterase Negative Urine RBC None seen Urine WBC 5-10/hpf H Ur Squamous Epith Cells None seen Urine Bacteria Many (>30) H Ur Culture Indicated? Specimen cultured Vol Urine Centrifuged 10ml (spun) 12/02/24 05:10 WBC 6.6 RBC 4.18 Hgb 12.2 Hct 37.0 MCV 88.4 MCH 29.1 MCHC 32.9 RDW 14.8 Plt Count 202 Neut % (Auto) 74.9 Lymph % (Auto) 14.8 L [place] % (Auto) 9.7 Eos % (Auto) 0.1 L Baso % (Auto) 0.5 Neut # (Auto) 4900 Lymph # (Auto) 1000 L [place] # (Auto) 600 Eos # (Auto) 0 Baso # (Auto) 0 PT INR Sodium 134 L Potassium 4.4 Chloride 101 Carbon Dioxide 23 BUN 24 H Creatinine 1.70 H Estimated GFR 33 L BUN/Creatinine Ratio 14.1 Glucose 109 Hemoglobin A1c Calcium 8.4 Total Bilirubin AST ALT Alkaline Phosphatase Total Creatine Kinase Total Protein Albumin Globulin Albumin/Globulin Ratio Urine Color Urine Appearance Urine pH Ur Specific [place] Urine Protein Urine Glucose (UA) Urine Ketones Urine Occult Blood Urine Nitrate Urine Bilirubin Urine Urobilinogen Ur Leukocyte Esterase Urine RBC Urine WBC Ur Squamous Epith Cells Urine Bacteria Ur Culture Indicated? Vol Urine Centrifuged PFSH Social History household members: spouse Smoking Status: Former smoker alcohol intake: never Assessment & Plan Time-Based Coding :: [TOTAL MINUTES] spent with patient and on the chart (including review of chart, obtaining history, exam, reviewing outside data, placing orders, documenting exam and treatment plan, and counseling patient) on [DATE]. Quality VTE Deep Vein Thrombosis/Pulmonary Embolism Present on Admission: No
--- NOTE | 2024-12-02 13:37 | SUR.OPER ---
CASE CANCELLED PER SURGEON.
--- NOTE | 2024-12-02 14:17 | DIET.CONS ---
Dietary Consultation Note Admission Date: 12/01/2024 16:43 Assessment: 69 y F admitted after GLF. Nutrition screened for low MNA score. PMH of CKD and DM (5.8% A1c on 12/01/24) Met with pt at bedside who reports 20-40 lb weight loss within 2 months. Reports not being able to keep any food or liquids down without vomiting or having diarrhea all of October up until November 24. Since November 24, starting having easy to tolerate starchy foods in small portions (i.e piece of bread) and reports some regain of weight. Went to GI appt where they recc outpatient endoscopy, was unable to obtain before coming to hospital, but patient reports since November 24 being able to fully keep food down without vomiting or diarrhea. Reports only able to eat a few bites of the dinner tray last night. Nutrition focused physical exam with moderate muscle mass loss temples, deltoid, and interosseous Ht: 162.56 cm Wt: 68.039 kg BMI: 25.7 UBW: 78.18 kg in September 2024 (-13% weight loss within 3 months, severe) Last BM: 11/29/24 (12/02/24 11:17) MNA: 7 Hao Score: 17 Diet: 12/02/24 00:01 NPO Diet Diet Modifications: NPO Type: NPO after Midnight Nutrition Percent Meal Consumed 25% 12/01/24 18:00 Labs: RBC 4.18 X10^6/uL (4.0-5.2) 12/02/24 05:10 Hgb 12.2 g/dL (12.0-16.0) 12/02/24 05:10 Hct 37.0 % (36-46) 12/02/24 05:10 Creatinine 1.70 mg/dL (0.52-1.04) H 12/02/24 05:10 Hemoglobin A1c 5.8 % (4.0-6.0) 12/01/24 14:00 Nutrition Diagnosis: Severe acute Protein Calorie Malnutrition related to inadequate oral intake secondary to vomiting and diarrhea as evidenced by 13% weight loss within 3 months (severe), <50% of estimated energy needs for 5 weeks per diet recall (severe), and mild-moderate muscle mass wasting (temples, deltoid, interosseous) Interventions: Pt NPO for surgery, will re-assess PO tolerance when diet ordered and order ONS with meals EER: 1700 kcals (25 kcals/kg per BMI) 55 g protein (.8 g protein per kg per renal+DM+PCM) Monitoring/Evaluations: diet advancement per MD and tolerance Electronically Signed by: Marie Qureshi 12/02/24 14:17 Clinical Dietitian [address] [address]
--- NOTE | 2024-12-02 15:19 | PM.PN.1 ---
Subjective Subjective Interval history: Chief complaint: Left hip pain following ground level fall with nondisplaced femoral neck fracture History of present illness: 69-year-old female with a history of COPD type 2 diabetes obesity chronic kidney disease had a ground level fall this morning late on the hard floor waiting for the pain to subside which did not. Eventually patient was brought to the emergency department for an evaluation. Findings in the ER significant for left femoral neck fracture nondisplaced. Case was discussed with anesthesia and Orthopedic surgery the consensus was to get a CT to evaluate to see if it requires surgery or could be managed conservatively. Review of systems: Patient reports a 20-40 lb involuntary weight loss over September and October due to being unable to eat or drink without vomiting food back up or with abdominal pain. GI evaluation with a dietary aid planned prior to this accident. No chest pain shortness for breath palpitations No paresthesia or paresis No urinary symptoms Physical exam: Elderly female alert but confused and difficulty focusing after receiving hydromorphone HEENT poor dentition otherwise unremarkable Neck no carotid bruits or JVD Heart rate and rhythm regular loud 3/6 systolic murmur most audible in the aortic position Lungs with end inspiratory wheezes and shortened respiratory phases Abdomen no masses bowel sounds present nontender Extremities no cyanosis clubbing edema Good capillary refills and dorsalis pedis pulses bilaterally Exam Vital Signs (past 8 hours): - 12/02/24 08:00 12/02/24 09:00 12/02/24 11:17 Temperature 97.3 F L 98.4 F Pulse Rate 77 72 Respiratory Rate 16 16 Blood Pressure 113/48 L 114/54 L Pulse Oximetry 92 92 96 Oxygen Delivery Method Nasal Cannula Nasal Cannula Oxygen Flow Rate 2 2 2 12/02/24 13:25 12/02/24 13:30 12/02/24 13:35 Temperature 98.0 F Pulse Rate 75 75 74 Respiratory Rate 13 15 15 Blood Pressure 129/43 L 129/44 L 135/50 L Pulse Oximetry 93 99 100 Oxygen Delivery Method Nasal Cannula Nasal Cannula Room Air Oxygen Flow Rate 2 2 2 12/02/24 13:40 12/02/24 13:55 Temperature Pulse Rate 74 74 Respiratory Rate 10 L 13 Blood Pressure 144/51 H 150/48 H Pulse Oximetry 100 99 Oxygen Delivery Method Nasal Cannula Nasal Cannula Oxygen Flow Rate 2 2 Fraction of Inspired Oxygen 28 SaO2/FiO2 Ratio 339 Oxygen Delivery Method Nasal Cannula Oxygen Flow Rate 2 Objective Labs 12/02/24 05:10 12/02/24 05:10 Labs: Laboratory Results - last 24 hr 12/01/24 12/01/24 12/02/24 14:00 18:51 05:10 WBC 6.6 RBC 4.18 Hgb 12.2 Hct 37.0 MCV 88.4 MCH 29.1 MCHC 32.9 RDW 14.8 Plt Count 202 Neut % (Auto) 74.9 Lymph % (Auto) 14.8 L [place] % (Auto) 9.7 Eos % (Auto) 0.1 L Baso % (Auto) 0.5 Neut # (Auto) 4900 Lymph # (Auto) 1000 L [place] # (Auto) 600 Eos # (Auto) 0 Baso # (Auto) 0 Sodium 134 L 134 L Potassium 4.3 4.4 Chloride 102 101 Carbon Dioxide 23 23 BUN 23 H 24 H Creatinine 1.69 H 1.70 H Estimated GFR 33 L 33 L BUN/Creatinine Ratio 13.6 14.1 Glucose 139 H 109 Hemoglobin A1c 5.8 Calcium 8.5 8.4 PFSH Social History household members: spouse Smoking Status: Former smoker alcohol intake: never Assessment & Plan Assessment & Plan narrative: Moderate operative risk due to multiple factors for hip surgery: -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 -we will repeat echocardiogram to see if there is physiologically significant aortic stenosis or other clinically significant findings -defer to Orthopedic surgery as to whether a total hip arthroplasty would be long-term favor in this patient given the increasing operative risk when compared to fixation screws Nondisplaced closed Left femoral neck fracture secondary to ground level fall: -Further evaluation with CT imaging and final decision of whether or not to take to surgery by Orthopedic surgery -1 dose of subcu heparin for DVT prophylaxis tonight -if surgery is indicated there are no prohibitive risks to performing surgery Reduced GFR chronic kidney disease in setting of previous diabetes -avoid nephrotoxic agents -renally dose medications COPD: Stable without exacerbation -nebulizer as needed for wheezing or shortness of breath Type 2 diabetes no longer requiring medication due to weight loss -monitor a.c. HS glucoses Unintentional weight loss 20-40 lb in September and October -is established with dietary aid to determine the etiology DVT prophylaxis:1 dose of 5000 units subQ heparin and then discretion per Orthopedic surgery Full code blue I spent 55 Time-Based Coding I spent 55 minutes evaluating this patient with a least 50% of the time in direct contact with the patient in evaluation Time-Based Coding :: [TOTAL MINUTES] spent with patient and on the chart (including review of chart, obtaining history, exam, reviewing outside data, placing orders, documenting exam and treatment plan, and counseling patient) on [DATE]. Quality VTE Deep Vein Thrombosis/Pulmonary Embolism Present on Admission: No
[2024-12-02] MEDS: cefTRIAXone 1,000 MG in SODIUM CHLORIDE 0.9% 100 ML 200 MG IV (18:30)
[2024-12-02] MEDS: HEPARIN 5,000 UNIT/ML VIAL 5000 UNIT SUBCUT (18:35)
--- NOTE | 2024-12-02 18:41 | PC.NURSE ---
Patient returned from PACU to room 210. surgery cancelled, and echo ordered. She is A&OX4. BG 85 this afternoon. She is able to tolerate 50% of evening meal. x2 PIV compromised and IVF stopped this afternoon. One floor RN able to place PIV in L FA. She has good urine output this shift and VSS. She is A&OX4 this afternoon. Oxycodone given PRN for pain. Will continue to monitor..
[2024-12-02] MEDS: SENNOSIDES 8.6 MG TABLET 17.2 MG PO (20:21)
[2024-12-03] VITALS (26 sets, daily range): BP systolic 110–168; BP diastolic 43–80; PULSE 67–97; RESP 14–22; TEMP 36.6–37.7; O2SAT 88–99; BMI 25.7
--- NOTE | 2024-12-03 | DI.RAD.S_ITS ---
PROCEDURE: XR HIP W PEL IF DONE LT 2V INDICATIONS: LEFT HIP ORIF TECHNIQUE: Multiple intraoperative views of the hip were acquired. COMPARISON: [facility], CR, XR HIP W PEL IF DONE LT 2V, 12/01/2024, 11:15. FINDINGS: Bones: Intraoperative views during left hip ORIF. Hardware appears in appropriate position. Soft tissues: No suspicious soft tissue calcifications or masses. IMPRESSION: Intraoperative views during left hip ORIF. Hardware appears in appropriate position. Dictated by: Alfredito Olsen M.D. on 12/03/2024 at 19:56 Approved by: Alfredito Olsen M.D. on 12/03/2024 at 19:57
[2024-12-03] MEDS: OXYCODONE IR 5 MG TABLET PO ×3 (00:01→08:28)
[2024-12-03] MEDS: SODIUM CHLORIDE 0.45% 1,000 ML 100 ML IV (00:08)
[2024-12-03] MEDS: DEXTROSE 5%-0.9% NS 1,000 ML 100 ML IV ×2 (02:14→12:36)
--- NOTE | 2024-12-03 02:24 | PC.NURSE ---
Pt. confused, trying to pulled out her gown & got tangled up with all her tubing. She's also shaking & complaining about being cold. Checked her temp. 98.1, rechecked her CBG. 79. Notified Dr. Zeng & reported her IVF is 1/2 NS @ 100 cc/hr. Dr. Zeng changed her IVF to D5NS @ 100 cc/hr. Will recheck her CBG & monitor.
[2024-12-03] MEDS: ACETAMINOPHEN 325 MG TABLET 650 MG PO ×3 (05:03→22:40)
--- NOTE | 2024-12-03 08:07 | P.PN_ITS ---
Subjective Subjective Interval history: Patient is pending echocardiogram today. She has known COPD and severe kidney dysfunction. A murmur was detected on exam preoperatively yesterday and she became hypotensive during anesthesia induction, leading to cancellation of the case yesterday for further workup. Pending the results of that workup it may be determined that she is better cared for at a higher level facility with more postoperative capabilities such as dialysis availability. If it is determined that she is an appropriate patient for surgery at this facility I would proceed with surgery this evening. If she does remain here for surgery I would perform a CRPP of the hip rather than a LINDSAY in an attempt to minimize operative time and blood loss. Further discussions will occur throughout the day today with regards to transfer versus remaining here for the procedure. Exam Vital Signs (past 8 hours): - 12/03/24 01:00 12/03/24 05:00 12/03/24 06:00 Temperature 98.5 F Pulse Rate 67 Respiratory Rate 14 Blood Pressure 142/60 H Pulse Oximetry 91 92 93 Oxygen Delivery Method Nasal Cannula Oxygen Flow Rate 1.5 2 2 Fraction of Inspired Oxygen 28 SaO2/FiO2 Ratio 339 Oxygen Delivery Method Nasal Cannula Oxygen Flow Rate 2 Objective Labs 12/02/24 05:10 12/02/24 05:10 [facility] Social History household members: spouse Smoking Status: Former smoker alcohol intake: never Assessment & Plan Time-Based Coding :: [TOTAL MINUTES] spent with patient and on the chart (including review of chart, obtaining history, exam, reviewing outside data, placing orders, documenting exam and treatment plan, and counseling patient) on [DATE]. Quality VTE Deep Vein Thrombosis/Pulmonary Embolism Present on Admission: No
[2024-12-03] MEDS: DOCUSATE 100 MG CAPSULE PO ×2 (08:28→20:22)
[2024-12-03 08:38] LABS: Alanine Aminotransferase 28 IU/L (<35); Albumin 3.1 g/dL (3.5-5.0); Alkaline Phosphatase 44 U/L (38-126); Aspartate Aminotransferase 47 IU/L (14-36); BUN Creatinine Ratio 12.8 (6-22); Bilirubin Total 0.5 mg/dL (0.2-1.3); Blood Urea Nitrogen 19 mg/dL (7-17); Calcium 8.3 mg/dL (8.4-10.2); Carbon Dioxide 26 mmol/L (22-32); Chloride 104 mmol/L (98-107); Estimated Glomerular Filt Rate 39 mL/min (>60); Globulin 3.1 g/dL (1.7-4.1); Glucose 157 mg/dL (80-110); HEMOLYSIS < 15 (0-50); Potassium 4.1 mmol/L (3.4-5.1); Sodium 135 mmol/L (137-145); Total Protein 6.2 g/dL (6.3-8.2)
[2024-12-03] MEDS: OXYCODONE IR 10 MG TABLET PO ×2 (12:32→20:22)
[2024-12-03] MEDS: ALBUTEROL/IPRATROPIUM 3 ML AMPUL INH ×2 (12:54→18:41)
--- NOTE | 2024-12-03 13:52 | PM.PN.1 ---
Subjective Subjective Date Patient Seen: 12/03/24 Time Patient Seen: 13:52 Interval history: Chief complaint: Left hip pain following ground level fall with nondisplaced femoral neck fracture History of present illness: 69-year-old female with a history of COPD type 2 diabetes obesity chronic kidney disease had a ground level fall this morning late on the hard floor waiting for the pain to subside which did not. Eventually patient was brought to the emergency department for an evaluation. Findings in the ER significant for left femoral neck fracture nondisplaced. Case was discussed with anesthesia and Orthopedic surgery the consensus was to get a CT to evaluate to see if it requires surgery or could be managed conservatively. Hospital course: 12/02: Hypotensive episode during induction of anesthesia patient brought back up to the floor Echocardiogram was ordered demonstrated normal ejection fraction and no aortic stenosis 12/03: No events overnight Prepared for fixation screws per Orthopedic surgery Review of systems: Patient reports a 20-40 lb involuntary weight loss over September and October due to being unable to eat or drink without vomiting food back up or with abdominal pain. GI evaluation with a converter operator planned prior to this accident. No chest pain shortness for breath palpitations No paresthesia or paresis No urinary symptoms Physical exam: Elderly female alert but confused and difficulty focusing after receiving hydromorphone HEENT poor dentition otherwise unremarkable Neck no carotid bruits or JVD Heart rate and rhythm regular loud 3/6 systolic murmur most audible in the aortic position Lungs with end inspiratory wheezes and shortened respiratory phases Abdomen no masses bowel sounds present nontender Extremities no cyanosis clubbing edema Good capillary refills and dorsalis pedis pulses bilaterally Exam Vital Signs (past 8 hours): - 12/03/24 06:00 12/03/24 07:00 12/03/24 08:00 Temperature 98.5 F 98 F Pulse Rate 67 76 Respiratory Rate 14 18 Blood Pressure 142/60 H 125/45 L Pulse Oximetry 93 96 Oxygen Delivery Method Nasal Cannula Oxygen Flow Rate 2 12/03/24 09:00 12/03/24 12:00 12/03/24 12:54 Temperature 99.8 F H Pulse Rate 81 Respiratory Rate 15 18 Blood Pressure 110/49 L Pulse Oximetry 94 95 96 Oxygen Delivery Method Nasal Cannula Nasal Cannula Oxygen Flow Rate 2 2 Fraction of Inspired Oxygen 28 SaO2/FiO2 Ratio 339 Oxygen Delivery Method Nasal Cannula Oxygen Flow Rate 2 Objective Labs 12/02/24 05:10 12/03/24 08:07 Labs: Laboratory Results - last 24 hr 12/03/24 08:07 Sodium 135 L Potassium 4.1 Chloride 104 Carbon Dioxide 26 BUN 19 H Creatinine 1.48 H Estimated GFR 39 L BUN/Creatinine Ratio 12.8 Glucose 157 H Calcium 8.3 L Total Bilirubin 0.5 AST 47 H ALT 28 Alkaline Phosphatase 44 Total Protein 6.2 L Albumin 3.1 L Globulin 3.1 Albumin/Globulin Ratio 1.0 PFSH Social History household members: spouse Smoking Status: Former smoker alcohol intake: never Assessment & Plan Assessment & Plan narrative: Mild but not prohibitive operative risk due to multiple factors for hip surgery: -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 -echocardiogram unremarkable without significant aortic stenosis or other clinically significant findings -consensus agreement with Orthopedic surgery favor fixation screws minimizing operating room time Nondisplaced closed Left femoral neck fracture secondary to ground level fall: -Further evaluation with CT imaging and final decision of whether or not to take to surgery by Orthopedic surgery -1 dose of subcu heparin for DVT prophylaxis tonight -if surgery is indicated there are no prohibitive risks to performing surgery Reduced GFR chronic kidney disease in setting of previous diabetes -avoid nephrotoxic agents -renally dose medications COPD: Stable without exacerbation -nebulizer as needed for wheezing or shortness of breath Type 2 diabetes no longer requiring medication due to weight loss -monitor a.c. HS glucoses Unintentional weight loss 20-40 lb in September and October -is established with converter operator to determine the etiology DVT prophylaxis:1 dose of 5000 units subQ heparin and then discretion per Orthopedic surgery Full code blue Time-Based Coding I spent 55 minutes evaluating this patient with a least 50% of the time in direct contact with the patient in evaluation Time-Based Coding :: I spent 55 minutes evaluating this patient with a least 50% of the time in direct contact with the patient in evaluation Quality VTE Deep Vein Thrombosis/Pulmonary Embolism Present on Admission: No
[2024-12-03] MEDS: HYDROMORPHONE 0.5 MG INJ IV ×2 (14:25→22:13)
[2024-12-03] MEDS: LACTATED RINGERS 1,000 ML 42 ML IV (16:52)
--- NOTE | 2024-12-03 16:53 | PC.NURSE ---
Patient taken via bed to Pre op area by Pre op RN at 1630 VSS, on 2LNC. She is awake and oriented.
--- NOTE | 2024-12-03 16:56 | PM.PREOP ---
Pre-operative Note Interval Note History & Physical reviewed/Exam performed by Physician: Yes Changes to H&P: No
[2024-12-03] MEDS: CEFAZOLIN 2 GM/100 ML PREMIX 100 ML IV (17:15)
--- NOTE | 2024-12-03 17:28 | SUR.OPER ---
Supine on padded asmita flat table, head on pillow, arms secured on padded arm boards at <90 degrees abduction, legs uncrossed, safety belt at belly, tape over blanket over lower right leg left leg draped free.
[2024-12-03] MEDS: BUPIVACAINE 0.5% (PF) 30 ML VIAL INJ (17:35)
--- NOTE | 2024-12-03 17:54 | P.OP_ITS ---
Operative Date/Time/Diagnoses Date of procedure: 12/03/24 Pre-op diagnosis: Valgus impacted left femoral neck fracture Post-op diagnosis: same Procedure & Clinicians Procedure: Closed reduction and percutaneous pinning of left femoral neck Same procedure as scheduled: Yes Surgeon: Jae Victor Click Yes if Unassisted: Yes Anesthesia Type: General and Local Operative Notes Estimated Blood Loss (mL): 25 Procedure in detail: This 69-year-old female patient has multiple significant medical comorbidities and sustained a valgus impacted left femoral neck fracture. She received an extensive workup to ensure it would be appropriate to proceed with surgery at our facility which included an echocardiogram. We actually were going to operate on her yesterday but elected to delay surgery in order to further evaluate her for the appropriateness of remaining at our facility for postoperative care. After careful consultation with anesthesia and Internal Medicine here we elected to move forward with her surgery. She was counseled extensively regarding the risks and benefits of surgery. In particular I emphasized the possible risk of nonunion and AVN. Emphasized the risk of potential need for additional surgery which could involve a total hip arthroplasty. I did not recommend a total hip arthroplasty in her case in order to minimize blood loss and operative time. She understood these risks and wished to proceed. The operative site was marked and informed consent was signed. All questions were answered. The patient was brought back to the operating room and anesthesia was induced. She was transferred to the operating table. A time-out procedure was performed. Imaging displaying the injury was displayed. She received Ancef prior to incision. She was prepped and draped in the usual sterile fashion. Used a guidewire to map out my intended trajectory for the most inferior screw on AP and lateral radiographs. I marked these on her skin on the Ioban drape. I then used this to triangulate an appropriate start point and inserted the guidewire down to bone. After manipulating it into what I felt was going to be in appropriate trajectory I started on the AP view and then evaluated my trajectory on the lateral view. I passed it up to the femoral head. I had good position in the center of the femoral head on the lateral view. I then evaluated on the AP view and found that it was slightly superior. I therefore u sed a honeycomb device to position a parallel screw more inferiorly. I evaluated this again on the AP and lateral views and found it to be appropriate. I therefore used the honeycomb device to insert my superior posterior and superior anterior screws in parallel trajectories to the initial screw. I evaluated these on the AP and lateral views as well and found them to be appropriate. I over-drilled for all 3 and measured the lengths for all 3. The top 2 both measured 80 mm and the bottom 1 measured 95 mm. I inserted the screws initially beginning with the inferior screw followed by the posterior superior screw and then the posterior anterior screw. Tightened them all by hand. Again obtained fluoroscopic images demonstrating appropriate screw positioning on both AP and lateral views. Copiously irrigated the incision sites and closed them with liam. I injected local anesthetic around the soft tissues were I had worked. I placed a soft dressing. Post-operative Plan for aftercare: - Weightbearing as tolerated - Continue with medical management for her multiple medical comorbidities including her aortic stenosis, COPD, and renal dysfunction - Aspirin 81 mg twice per day for DVT prophylaxis. She also takes Plavix which can be restarted 24 hours postoperatively - Follow up in 2 weeks at [facility] orthopedics for a wound check and radiographs
--- NOTE | 2024-12-03 19:55 | PC.NURSE ---
Patient arrived from PACU at 1900, She is A&OX3, SBP elevated 160's-170's. she reports pain tolerable to L hip. Aquacel dressing c/d/i. Her last BG in PACU was 156. She continues to be on O2. Resp therapy notified for evaluation, 02 saturation fluctuating 80's-90's. Encouraged patient to cough and deep breathe. Lorenzo in place. POST OP VS started per POST VS Protocol.
[2024-12-03] MEDS: LACTATED RINGERS 1,000 ML 100 ML IV (20:20)
[2024-12-03] MEDS: cefTRIAXone 1,000 MG in SODIUM CHLORIDE 0.9% 100 ML 200 MG IV (20:21)
[2024-12-03] MEDS: SENNOSIDES 8.6 MG TABLET 17.2 MG PO (20:22)
[2024-12-03] MEDS: ASPIRIN EC 81 MG TABLET PO (20:22)
--- NOTE | 2024-12-03 23:52 | PC.NURSE ---
Addendum entered by Olesya Guerrero R.N. 12/04/24 04:17: 21:30-Pharmacy called to clarify if the wanted ceftriaxone and cefazolin, spoke with Dr. Posadas and he said to continue both. Original Note: D5NS stopped and new order LR @100 started at 1900.
[2024-12-04] VITALS (12 sets, daily range): BP systolic 109–148; BP diastolic 46–52; PULSE 67–74; RESP 18; TEMP 35.9–36.4; O2SAT 88–97
[2024-12-04] MEDS: CEFAZOLIN 2 GM/100 ML PREMIX 100 ML IV ×2 (01:08→08:58)
[2024-12-04] MEDS: ACETAMINOPHEN 325 MG TABLET 650 MG PO ×4 (04:24→22:22)
[2024-12-04 06:16] LABS: BUN Creatinine Ratio 12.7 (6-22); Blood Urea Nitrogen 16 mg/dL (7-17); Calcium 8.5 mg/dL (8.4-10.2); Carbon Dioxide 24 mmol/L (22-32); Chloride 104 mmol/L (98-107); Estimated Glomerular Filt Rate 47 mL/min (>60); Glucose 212 mg/dL (80-110); HEMOLYSIS < 15 (0-50); Potassium 4.9 mmol/L (3.4-5.1); Sodium 135 mmol/L (137-145)
[2024-12-04 06:26] LABS: Add Manual Diff / Slide Review NO; Basophils Absolute Auto 0 /uL (0-100); Eosinophils Absolute Auto 0 /uL (0-450); Hematocrit 34.6 % (36-46); Hemoglobin 11.4 g/dL (12.0-16.0); Lymphocytes Absolute Auto 500 /uL (1100-4500); Lymphocytes Percent Auto 18.3 % (25-40); Mean Corpuscular HGB Conc 32.9 % (30-36); Mean Corpuscular Hemoglobin 28.9 PG (26-34); Mean Corpuscular Volume 87.9 fL (80-100); Monocytes Absolute Auto 300 /uL (0-900); Monocytes Percent Auto 9.7 % (3-14); Neutrophils Absolute Auto 1900 /uL (1500-7000); Platelet Count 169 X10^3/uL (150-400); Red Blood Cell Count 3.94 X10^6/uL (4.0-5.2); Red Cell Distribution Width 14.6 % (11.6-14.8); White Blood Cell Count 2.7 X10^3/uL (4.5-11.0)
[2024-12-04] MEDS: OXYCODONE IR 10 MG TABLET PO (06:54)
[2024-12-04] MEDS: ASPIRIN EC 81 MG TABLET PO ×2 (08:44→20:07)
[2024-12-04] MEDS: DOCUSATE 100 MG CAPSULE PO ×2 (08:44→20:07)
[2024-12-04] MEDS: polyethylene glycoL 3350 17 GM POWD.PACK PO (08:44)
[2024-12-04] MEDS: INSULIN LISPRO 100 UNIT/ML 3ML VIAL SUBCUT ×3 (08:46→16:29)
--- NOTE | 2024-12-04 09:36 | CM.DPC ---
DCP Cont. Reviewed EMR and team rounds for status updates. Discussed caregiving resources for pt in order to provide care for her while she is recovering at home, however she doesn't have the financial means to pay for this. [facility] will order HH for pt's own postoperative therapy needs. Continuing to monitor for any further evolving needs.
[2024-12-04] MEDS: OXYCODONE IR 5 MG TABLET PO ×3 (10:39→20:07)
--- NOTE | 2024-12-04 10:41 | PM.PNPO.1 ---
Subjective Subjective Interval history: Rebecca is a pleasant 69 year old female who is POD#1 s/p closed reduction and percutaneous pinning of left femoral neck for a valgus impacted left femoral neck fracture by Dr. Victor. This morning patient reports that she is doing well overall, she worked with PT this AM and feels she was able to make good progress w/ mobilization. She still has a Lorenzo catheter in place. She denies any significant pain, 3/10. Denies any numbness or tingling in the LLE. She does live at home w/ her but states she is normally his caregiver so he will not be able to provide much support to her after hospital d/c. Exam Vital Signs (past 8 hours): - 12/04/24 05:00 12/04/24 08:10 12/04/24 10:00 Temperature 96.7 F L Pulse Rate 67 Respiratory Rate 18 Blood Pressure 148/51 H Pulse Oximetry 94 95 Oxygen Delivery Method Nasal Cannula Nasal Cannula Oxygen Flow Rate 3 2 12/04/24 10:20 Temperature Pulse Rate Respiratory Rate Blood Pressure Pulse Oximetry 95 Oxygen Delivery Method Nasal Cannula Oxygen Flow Rate 2 Fraction of Inspired Oxygen 28 SaO2/FiO2 Ratio 339 Oxygen Delivery Method Nasal Cannula Oxygen Flow Rate 2 Narrative Exam Narrative: Patient lying comfortably in bed during our interview today. No acute distress. AOx3. 5/5 strength with DF, PF, EHL bilaterally. Gross sensation intact throughout bilateral lower extremities. Calves soft and non-tender bilaterally. SCDs are on and functioning. Brisk capillary refill, pulses intact. Post-surgical Aquacel dressing clean, dry and intact over the left hip with mild drainage. Objective Labs 12/04/24 05:10 12/04/24 05:10 Labs: Laboratory Results - last 24 hr 12/04/24 05:10 WBC 2.7 L D RBC 3.94 L Hgb 11.4 L Hct 34.6 L MCV 87.9 MCH 28.9 MCHC 32.9 RDW 14.6 Plt Count 169 Neut % (Auto) 71.0 Lymph % (Auto) 18.3 L Bel[place] % (Auto) 9.7 Eos % (Auto) 0.0 L Baso % (Auto) 1.0 Neut # (Auto) 1900 Lymph # (Auto) 500 L [place]ami # (Auto) 300 Eos # (Auto) 0 Baso # (Auto) 0 Sodium 135 L Potassium 4.9 Chloride 104 Carbon Dioxide 24 BUN 16 Creatinine 1.26 H Estimated GFR 47 L BUN/Creatinine Ratio 12.7 Glucose 212 H Calcium 8.5 PFSH Social History household members: spouse Smoking Status: Former smoker alcohol intake: never Assessment & Plan Post-op Postoperative Procedures: Procedures Operation Date: 12/02/24 12:00 <No data on this case meets the specified criteria> Operation Date: 12/03/24 17:00 Actual Procedure Side Surgeon p ORIF Hip/Cannulated Screws Left Jae Victor MD Postoperative day: 1 Postoperative plan narrative: 1) Discharge disposition per medicine. 2) Continue multimodal pain management with ice to the hip for additional pain control. 3) Continue ASA b.i.d. for DVT prophylaxis. She may also resume her Plavix this evening at her regular at home dose. 4) Continue to work with physical therapy to improve mobility. WBAT. 5) Keep dressing intact, clean, dry until 2 week postop appointment. No soaking the incision site in pools or tubs. No topical ointments or creams to the incision site. 6) Follow up at [facility] orth[facility] in 2 weeks for a postop appointment and wound check. All patient's questions were answered, she demonstrates understanding and is in agreement with the plan. Call our office if any questions or concerns arise. Quality VTE Deep Vein Thrombosis/Pulmonary Embolism Present on Admission: No
--- NOTE | 2024-12-04 11:21 | PT.IIE ---
Current Diagnoses Fracture of unspecified part of neck of left femur, initial encounter for closed fracture (12/01/24) Surgery Performed Operation Date: 12/02/24 12:00 <No data on this case meets the specified criteria> Operation Date: 12/03/24 17:00 Actual Procedures p ORIF Hip/Cannulated Screws(Left) - Jae Victor MD Physical Therapy Inpatient Evaluation/Re-Eval M1 PT/OT-IP Prior Functional Status Start: 12/04/24 11:33 Freq: NEEDED Status: Active Protocol: Document 12/04/24 11:21 DLM (Rec: 12/04/24 11:56 DL [id number]) Medical Review Prior Functional Status Medical History Reviewed Yes Diet/Fluid Consistency Regular Communication glasses, WFL Mobility and Gait Independent, has cane but does not always use, she drives Activities of Daily Living and IADL's Independent She sleeps on cough, propped up to help with breathing. Prior Functional Level (Other details) has hired caregiver to help her with dementia, he can not be left alone Social History Household Members spouse Living Arrangements House Number of Floors (Floors) One Floor Number of Stairs To Enter/Railing? 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 PT-IP Current Condition Start: 12/04/24 11:33 Freq: NEEDED Status: Active Protocol: Document 12/04/24 11:21 DLM (Rec: 12/04/24 11:56 [facility] [id number]) Physical Therapy Current Condition Current Condition Evaluation Date 12/04/24 Treatment Diagnosis left hip ORIF 12/03/24 Onset Date 12/01/24 M3 PT-IP Subjective Start: 12/04/24 11:33 Freq: NEEDED Status: Active Protocol: Document 12/04/24 11:21 DLM (Rec: 12/04/24 11:56 DL [id number]) Subjective Physical Therapy Visit Type Type Initial Evaluation Visit Start Time 10:40 Visit Stop Time 11:21 Notes 41 minutes 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 It would be too much for her 's hired caregiver to take care of her also at home. Patient Goals be able to return home and walk Therapy Pain Assessment Pain When Pain Assessed During Mobility Pain Present Pain Present Pain Reported Location left hip Intensity 7 Scale Used Numeric (0 - 10) Description Aching,Tender,With Movement Pain Behaviors Facial Grimacing Pain Management Techniques Apply Cold,Re-positioning, Timing of Activity with Medications M4 PT-IP Mobility and Gait Start: 12/04/24 11:33 Freq: NEEDED Status: Active Protocol: Document 12/04/24 11:21 DLM (Rec: 12/04/24 11:56 DL [id number]) PT-Bed Mobility Assessment Supine to Sit Supine to Sit Moderate Assistance,Head of Bed Elevated Scooting Scooting to Edge of Bed Minimal Assistance PT-Transfer Assessment Sit to and From Stand Sit to and from Stand Contact Guard Assistance, Minimal Assistance,Use of Upper Extremities Equipment Transfer Assistive Device Gait Belt,Front Wheeled Walker Transfers Transfer Destination Chair Transfer Technique Stand Step Pivot Transfer Ability Level of Assist Contact Guard Assistance, Minimal Assistance,Use of Upper Extremities Comments Mobility Comments She moves very slowly with all activity. Pt is using 2 LPM oxygen this visit. She was able to take a few small steps to transfer to the recliner at bedside. Pt left sitting up in recliner with call light and needs close. Gait Assessment Gait Gait Assistance Required: Contact Guard Assist,Minimum Assistance Distance (Feet) 2 Able to Maintain Weight Bearing Status Yes During Gait Assistive Devices Assistive Device Gait Belt,Front Wheeled Walker Gait Deviations General Gait Pattern Antalgic,Decreased Stride Length,Step-to Gait Factors Limiting Gait Function Factors Limiting Gait Function Decreased Activity Tolerance, Decreased Sensation,Decreased Strength,Limited Range of Motion,Pain,Poor Balance Comments Gait Comments good use of UE's on the FWW Stair Climbing Assessment Comments Stair Climbing Comments unable this visit PT-Balance Assessment Sitting Balance and Reactions Static Sitting Balance Ability Normal Dynamic Sitting Balance Ability Good Standing Balance and Reactions Static Standing Balance Ability Fair Dynamic Standing Balance Ability Fair Device Used FWW M5 PT-IP Objective Assessments Start: 12/04/24 11:33 Freq: NEEDED Status: Active Protocol: Document 12/04/24 11:21 DLM (Rec: 12/04/24 11:56 DL [id number]) Orientation Orientation/Cognition Level of Alertness Alert Orientation Name,Age,Birthday,Month,Date, Year,Day of Week,Place, Situation Language Function Ability No Deficits Noted Safety Awareness Understands Safety Issues Memory Description No Deficits Noted Gross Range of Motion Upper Extremity ROM Assessment Within Functional Limits Lower Extremity ROM Assessment Left Impaired Impairments pain limits movements of left hip Strength Upper Extremity Strength Assessment Within Functional Limits Lower Extremity Strength Assessment Left Impaired Hip flex 2+/5, needs assist to move LE in bed Knee knee ext 4-/5, knee flex 4/5 Ankle DF 4+/5 Comments Strength Comments pain in left hip and thigh area limits her functional strength Coordination Assessment Gross Coordination Gross Coordination WNL Sensation Assessment Sensation Gross Sensation Right UE Impaired,Right LE Impaired Light Touch Impaired Comments Sensation Comments 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 No changes this admission Muscle Tone Muscle Tone WNL Yes M6 PT-IP Treatment Start: 12/04/24 11:33 Freq: NEEDED Status: Active Protocol: Document 12/04/24 11:21 DLM (Rec: 12/04/24 11:56 DL [id number]) Physical Therapy Treatment Exercises Exercises Ankle Pumps Education Education Provided Weight Bearing Status,Post-Op Packet,Safety M7 PT-IP Assessment and Plan Start: 12/04/24 11:33 Freq: NEEDED Status: Active Protocol: Document 12/04/24 11:21 DLM (Rec: 12/04/24 11:56 DL [id number]) PT Summary Assessment and Plan Potential Rehabilitation Potential Good Status of Condition at Evaluation Evolving Summary Impairments Pain,ROM,Strength,Balance, Sensation,Bed Mobility, Transfers,Gait,Activity Tolerance Assessment Summary Rebecca is alert and resting in bed. She was admitted after falling at home. She suffered left femur fracture. She underwent left hip ORIF . She has not been out of bed since her admission on . This visit she was able to sit up on edge of bed, stand with the FWW and progress to a transfer to the recliner. Pt left sitting up in the recliner with nursing aware and call light close. She was able to take small functional steps with the FWW to get to the recliner but could not progress to functional gait in the room. She moves very slowly with all functional mobility complicated by ongoing left hip area pain. She is independent at baseline and helps care for her Spouse with dementia. She does not have anyone to care for her at discharge. Recommend SNF rehab for discharge at this time. Anticipate she will progress well but slowly post-op left hip ORIF.She continues to need supplemental O2 this visit. Goals Bed Mobility Goal Independent Transfer Goal Independent Gait Goal Standby Assistance,Front Wheel Walker Gait Distance 150 feet Other Goals up/down one step with fWW and SBA. Days to Meet Goals 7 Frequency of Treatment Frequency Of Treatment Twice a Day Treatment Plan Physical Therapy Treatment Plan Bed Mobility Training,Transfer Training,Gait Training, Therapeutic Exercise,Balance Retraining,Post Op Education, Discharge Planning,Hot or Cold Pack,Neuromuscular Re-ed Weight Bearing Status Weight Bearing Status Weight Bear as Tolerated Allowed Weight Bearing Amount (enter % left LE with FWW or #) (%) Recommendations To Nursing Amount of Assist Needed 1 Person Assist Discharge Recommendations PT Discharge Recommendations SNF Rehab Equipment Needed for Home Before FWW if she goes home Discharge Transportation Needs at Discharge Private Vehicle,Wheelchair/ Cabulance - PT assist 1 P
--- NOTE | 2024-12-04 13:25 | OT.IP.EVAL ---
Current Diagnoses Fracture of unspecified part of neck of left femur, initial encounter for closed fracture (12/01/24) Surgery Performed Operation Date: 12/02/24 12:00 <No data on this case meets the specified criteria> Operation Date: 12/03/24 17:00 Actual Procedures p ORIF Hip/Cannulated Screws(Left) - Jae Victor MD Occupational Therapy Inpatient Evaluation/Re-Eval M1 PT/OT-IP Prior Functional Status Start: 12/04/24 11:33 Freq: NEEDED Status: Active Protocol: Document 12/04/24 14:21 [facility] (Rec: 12/04/24 14:35 [facility] [id number]) Medical Review Prior Functional Status Medical History Reviewed Yes Diet/Fluid Consistency Regular Communication glasses, WFL Mobility and Gait Independent, has cane but does not always use, she drives Activities of Daily Living and IADL's Independent She sleeps on cough, propped up to help with breathing. Prior Functional Level (Other details) has hired caregiver to help her with dementia, he can not be left alone Social History Household Members spouse Living Arrangements House Number of Floors (Floors) One Floor Number of Stairs To Enter/Railing? 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 OT-IP Current Condition Start: 12/04/24 14:20 Freq: Status: Active Protocol: Document 12/04/24 14:21 [facility] (Rec: 12/04/24 14:35 [facility] [id number]) Occupational Therapy Current Condition Current Condition Evaluation Date 12/04/24 Treatment Diagnosis S/P L ORIF Diagnosis Onset Date 12/01/24 M3 OT- IP Subjective and Pain Start: 12/04/24 14:20 Freq: Status: Active Protocol: Document 12/04/24 14:21 [facility] (Rec: 12/04/24 14:35 [facility] [id number]) OT- Subjective Occupational Therapy Visit Type Type Initial Evaluation Visit Start Time 12:50 Visit Stop Time 13:25 Occupational Therapy Visit Comments Patient Comments Pt agreed to try to get up to the sink. Patient/Caregiver Goals Pt wanting to go home but realizing that best to go to skilled rehab prior to going home. OT Pain Assessment Pain When Pain Assessed At Rest Pain Present Pain Present Pain Reported Location left hip Intensity 6 Scale Used Numeric (0 - 10) M4 OT- IP ADL's Start: 12/04/24 14:20 Freq: Status: Active Protocol: Document 12/04/24 14:21 [facility] (Rec: 12/04/24 14:35 [facility] [id number]) OT ADL-Grooming Comments OT Grooming Comments Not performed. OT ADL-Oral Care Comments Oral Care Comments Not performed. OT ADL-Dressing General Eval Lower Body Dressing Ability Maximum Assistance Areas Needing Assistance Socks Comments OT Dressing Comments Able to show pt use of LB dressing equipment. OT ADL-Toileting General Evaluation Toileting Ability Total Assistance Comments OT Toileting Comments Lorenzo in. OT ADL-Bathing Comments OT Bathing Comments Not performed, Sponge bath more appropriate at this time due to buckling of LLE. M5 OT- IP IADL's Start: 12/04/24 14:20 Freq: Status: Active Protocol: Document 12/04/24 14:21 [facility] (Rec: 12/04/24 14:35 [facility] [id number]) OT-Instrumental Activities of Daily Living Deficits IADL Deficits Identified Deficits Home Safety Awareness Awareness of Need for Assistance at Home Good Awareness Medication Management Medication Management Comments Pt is a bit groggy and at this time may need assist. Money Management Money Management Comments Pt is a bit groggy and at this time may need assist. Meal Preparation Meal Preparation Comments Pt will need assist. Hospice Physician Hospice Physician Comments Pt will need assist. M6 OT- IP Functional Cognition Start: 12/04/24 14:20 Freq: Status: Active Protocol: Document 12/04/24 14:21 [facility] (Rec: 12/04/24 14:35 [facility] [id number]) Cognitive Factors Limiting Selfcare Function Cognitive Ability Level of Alertness Alert Patient Orientation Name,Age,Birthday,Month,Date, Year,Day of Week,Place, Situation Attention Span Ability Capable of Focused Attention, Capable of Sustained Attention Cognitive Comments Cognitive Assessment Comments Pt a bit groggy but able to follow commands for ADL and mobility needs. Pt is very [place] . OT- Vision and Hearing OT- Hearing Assessment OT- Hearing Assessment Hearing Impaired OT- Vision Assessment Visual Acuity Glasses All The Time Occular Pursuits WFL Visual Convergence WFL M7 OT- IP Mobility and Balance Start: 12/04/24 14:20 Freq: Status: Active Protocol: Document 12/04/24 14:21 [facility] (Rec: 12/04/24 14:35 [facility] [id number]) OT- Bed Mobility Assessment Sit to Supine Sit to Supine Assist Moderate Assistance OT-Transfer Assessment Sit to and From Stand Sit to and from Stand Moderate Assistance Transfers Transfer Ability Moderate Assistance Technique Transfer Destination Bed,Chair Devices Transfer Assistive Devices Gait Belt,Front Wheeled Walker Comments Mobility Comments MOD A to stand to the FWW. Pt unsteady on her feet and buckling at her LLE and needing cues to stiffen. Not able to get to the sink and therefore just assisting her back to bed. OT- Balance Assessment Sitting Balance and Reactions Static Sitting Balance Ability Normal Dynamic Sitting Balance Ability Good Standing Balance and Reactions Static Standing Balance Ability Fair Dynamic Standing Balance Ability Poor Comments Other Balance Tests/Deviations/Treatment Pt's LLE buckling when taking : steps at this time. M8 OT- IP Objective Assessments Start: 12/04/24 14:20 Freq: Status: Active Protocol: Document 12/04/24 14:21 [facility] (Rec: 12/04/24 14:35 [facility] [id number]) OT Gross Range of Motion Upper Extremity Range of Motion Assessment Within Functional Limits OT Strength Upper Extremity Strength Assessment Within Functional Limits M9 OT- IP Assessment and Plan Start: 12/04/24 14:20 Freq: Status: Active Protocol: Document 12/04/24 14:21 [facility] (Rec: 12/04/24 14:35 [facility] [id number]) OT Summary Assessment and Plan Potential Rehabilitation Potential Good Analytic Complexity at Evaluation Moderate Summary OT Impairments Pain,Balance,Functional Mobility,Grooming,Dressing, Toileting,Bathing,Toilet Transfers,Shower Transfers, Activity Tolerance Progress Towards Goals Slow Progress due to Pain,Slow Progress due to Activity Tolerance Assessment Summary Pt MOD complexity and main barriers are pain, decreased balance and activity tolerance and buckling with her LLE. 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 Goals Self-Feeding Goal Independent Grooming Goal Independent Dressing Goal Independent Toileting Goal Independent Bathing Goal Independent Toilet Transfer Goal Independent Shower Transfer Goal Independent Days to Meet Goals 20 Frequency of Treatment Other frequency 5x/week Treatment Plan OT Treatment Plan ADL Training,Functional Mobility,Patient/Family Education,Discharge Planning Other Treatment Recommendations and Next standing ADL's at sink with Treatment Focus FWW Discharge Recommendations OT Discharge Recommendations SNF Rehab Transportation Needs at Discharge Wheelchair/Cabulance
--- NOTE | 2024-12-04 14:05 | PM.PN.1 ---
Subjective Subjective Date Patient Seen: 12/04/24 Time Patient Seen: 14:05 Interval history: Chief complaint: Left hip pain following ground level fall with nondisplaced femoral neck fracture History of present illness: 69-year-old female with a history of COPD type 2 diabetes obesity chronic kidney disease had a ground level fall this morning late on the hard floor waiting for the pain to subside which did not. Eventually patient was brought to the emergency department for an evaluation. Findings in the ER significant for left femoral neck fracture nondisplaced. Case was discussed with anesthesia and Orthopedic surgery the consensus was to get a CT to evaluate to see if it requires surgery or could be managed conservatively. Hospital course: 12/02: Hypotensive episode during induction of anesthesia patient brought back up to the floor Echocardiogram was ordered demonstrated normal ejection fraction and no aortic stenosis 12/03: No events overnight Prepared for fixation screws per Orthopedic surgery 12/04: No complications postoperatively for ORIF slept well overnight Was able to stand and pivot and transfer from bed to chair Discussed recovery. And patient agreed that she needs inpatient rehab and is amenable Review of systems: Patient reports a 20-40 lb involuntary weight loss over September and October due to being unable to eat or drink without vomiting food back up or with abdominal pain. GI evaluation with a crab meat processor planned prior to this accident. No chest pain shortness for breath palpitations No paresthesia or paresis No urinary symptoms Physical exam: Elderly female alert but confused and difficulty focusing after receiving hydromorphone HEENT poor dentition otherwise unremarkable Neck no carotid bruits or JVD Heart rate and rhythm regular loud 3/6 systolic murmur most audible in the aortic position Lungs with end inspiratory wheezes and shortened respiratory phases Abdomen no masses bowel sounds present nontender Extremities no cyanosis clubbing edema Good capillary refills and dorsalis pedis pulses bilaterally Objective/laboratory and studies at bottom of progress note: Assessment and plan: Nondisplaced closed Left femoral neck fracture secondary to ground level fall: -no complications postoperatively -Patient agreeable to inpatient rehab -making arrangements for jail care of her with dementia Reduced GFR chronic kidney disease in setting of previous diabetes -avoid nephrotoxic agents -renally dose medications COPD: Stable without exacerbation -nebulizer as needed for wheezing or shortness of breath Type 2 diabetes no longer requiring medication due to weight loss -monitor a.c. HS glucoses Unintentional weight loss 20-40 lb in September and October -is established with crab meat processor to determine the etiology DVT prophylaxis:1 dose of 5000 units subQ heparin and then discretion per Orthopedic surgery Full code blue Time-Based Coding I spent 35 minutes evaluating this patient with a least 50% of the time in direct contact with the patient in evaluation Exam Vital Signs (past 8 hours): - 12/04/24 07:40 12/04/24 08:10 12/04/24 10:00 Temperature 96.7 F L Pulse Rate 67 Respiratory Rate 18 Blood Pressure 148/51 H Pulse Oximetry 94 95 Oxygen Delivery Method Nasal Cannula Nasal Cannula Oxygen Flow Rate 2 2 12/04/24 10:20 12/04/24 12:00 Temperature Pulse Rate 71 Respiratory Rate Blood Pressure Pulse Oximetry 95 97 Oxygen Delivery Method Nasal Cannula Oxygen Flow Rate 2 Fraction of Inspired Oxygen 28 SaO2/FiO2 Ratio 339 Oxygen Delivery Method Nasal Cannula Oxygen Flow Rate 2 Objective Labs 12/04/24 05:10 12/04/24 05:10 Labs: Laboratory Results - last 24 hr 12/04/24 05:10 WBC 2.7 L D RBC 3.94 L Hgb 11.4 L Hct 34.6 L MCV 87.9 MCH 28.9 MCHC 32.9 RDW 14.6 Plt Count 169 Neut % (Auto) 71.0 Lymph % (Auto) 18.3 L [place] % (Auto) 9.7 Eos % (Auto) 0.0 L Baso % (Auto) 1.0 Neut # (Auto) 1900 Lymph # (Auto) 500 L [place] # (Auto) 300 Eos # (Auto) 0 Baso # (Auto) 0 Sodium 135 L Potassium 4.9 Chloride 104 Carbon Dioxide 24 BUN 16 Creatinine 1.26 H Estimated GFR 47 L BUN/Creatinine Ratio 12.7 Glucose 212 H Calcium 8.5 PFSH Social History household members: spouse Smoking Status: Former smoker alcohol intake: never Assessment & Plan Time-Based Coding :: [TOTAL MINUTES] spent with patient and on the chart (including review of chart, obtaining history, exam, reviewing outside data, placing orders, documenting exam and treatment plan, and counseling patient) on [DATE]. Quality VTE Deep Vein Thrombosis/Pulmonary Embolism Present on Admission: No
--- NOTE | 2024-12-04 16:03 | PT.IPTN ---
Current Diagnoses Fracture of unspecified part of neck of left femur, initial encounter for closed fracture (12/01/24) Surgery Performed Operation Date: 12/02/24 12:00 <No data on this case meets the specified criteria> Operation Date: 12/03/24 17:00 Actual Procedures p ORIF Hip/Cannulated Screws(Left) - Jae Victor MD Physical Therapy Treatment Note M2 PT-IP Current Condition Start: 12/04/24 11:33 Freq: NEEDED Status: Active Protocol: Document 12/04/24 11:21 DLM (Rec: 12/04/24 11:56 DLM [id number]) Physical Therapy Current Condition Current Condition Evaluation Date 12/04/24 Treatment Diagnosis left hip ORIF 12/03/24 Onset Date 12/01/24 M3 PT-IP Subjective Start: 12/04/24 11:33 Freq: NEEDED Status: Active Protocol: Document 12/04/24 16:03 DLM (Rec: 12/04/24 17:12 DLM [id number]) Subjective Physical Therapy Visit Type Type Treatment Note Visit Start Time 15:30 Visit Stop Time 16:03 Notes 33 min Number of MANAGER [employer] SALES Visits 0 Physical Therapy Visit Comments Patient Comments She is tired this afternoon after sitting up in chair earlier today. Patient Goals be able to return home and walk Therapy Pain Assessment Pain When Pain Assessed During Mobility Pain Present Pain Present Pain Reported Location left hip Intensity 7 Scale Used Numeric (0 - 10) Description Aching,Tender,With Movement Pain Behaviors Facial Grimacing Pain Management Techniques Apply Cold,Re-positioning, Timing of Activity with Medications M4 PT-IP Mobility and Gait Start: 12/04/24 11:33 Freq: NEEDED Status: Active Protocol: Document 12/04/24 16:03 DLM (Rec: 12/04/24 17:12 DLM [id number]) PT-Bed Mobility Assessment Supine to Sit Supine to Sit Moderate Assistance,Head of Bed Elevated Sit to Supine Sit to Supine Minimal Assistance,Moderate Assistance Scooting Scooting to Edge of Bed Standby Assistance PT-Transfer Assessment Sit to and From Stand Sit to and from Stand Contact Guard Assistance, Minimal Assistance,Use of Upper Extremities Equipment Transfer Assistive Device Gait Belt,Front Wheeled Walker Comments Mobility Comments mobility continues to be at a very slow pace complicated by pain, she is using 2 LPM oxygen, pt did not want to transfer to the chair again this afternoon Gait Assessment Gait Gait Assistance Required: Contact Guard Assist,Minimum Assistance Distance (Feet) 3 Assistive Devices Assistive Device Gait Belt,Front Wheeled Walker Gait Deviations General Gait Pattern Antalgic,Decreased Stride Length,Step-to Gait Factors Limiting Gait Function Factors Limiting Gait Function Decreased Activity Tolerance, Decreased Sensation,Decreased Strength,Limited Range of Motion,Pain,Poor Balance Comments Gait Comments good use of UE's on the FWW Stair Climbing Assessment Comments Stair Climbing Comments unable this visit PT-Balance Assessment Sitting Balance and Reactions Static Sitting Balance Ability Normal Dynamic Sitting Balance Ability Good Standing Balance and Reactions Static Standing Balance Ability Fair Dynamic Standing Balance Ability Fair Device Used FWW M5 PT-IP Objective Assessments Start: 12/04/24 11:33 Freq: NEEDED Status: Active Protocol: Document 12/04/24 11:21 DLM (Rec: 12/04/24 11:56 DLM [id number]) Orientation Orientation/Cognition Level of Alertness Alert Orientation Name,Age,Birthday,Month,Date, Year,Day of Week,Place, Situation Language Function Ability No Deficits Noted Safety Awareness Understands Safety Issues Memory Description No Deficits Noted Gross Range of Motion Upper Extremity ROM Assessment Within Functional Limits Lower Extremity ROM Assessment Left Impaired Impairments pain limits movements of left hip Strength Upper Extremity Strength Assessment Within Functional Limits Lower Extremity Strength Assessment Left Impaired Hip flex 2+/5, needs assist to move LE in bed Knee knee ext 4-/5, knee flex 4/5 Ankle DF 4+/5 Comments Strength Comments pain in left hip and thigh area limits her functional strength Coordination Assessment Gross Coordination Gross Coordination WNL Sensation Assessment Sensation Gross Sensation Right UE Impaired,Right LE Impaired Light Touch Impaired Comments Sensation Comments 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 No changes this admission Muscle Tone Muscle Tone WNL Yes M6 PT-IP Treatment Start: 12/04/24 11:33 Freq: NEEDED Status: Active Protocol: Document 12/04/24 16:03 DLM (Rec: 12/04/24 17:12 DLM [id number]) Physical Therapy Treatment Exercises Exercises Ankle Pumps,Gluteal Sets,Quad Sets,Heel Slides,Supine Hip Abduction,Seated Knee Flexion/ Extension Education Education Provided Weight Bearing Status,Post-Op Packet,Safety Other Treatments Other Treatment Performed assisted pt with heel slides and supine hip abduction exercises to manage her pain and weakness M7 PT-IP Assessment and Plan Start: 12/04/24 11:33 Freq: NEEDED Status: Active Protocol: Document 12/04/24 16:03 DLM (Rec: 12/04/24 17:12 DLM [id number]) PT Summary Assessment and Plan Summary Impairments Pain,ROM,Strength,Balance, Sensation,Bed Mobility, Transfers,Gait,Activity Tolerance Progress Towards Goals Slow Progress due to Activity Tolerance Assessment Summary Rebecca is alert and resting in bed. She reports feeling fatigued this afternoon. She was able to stand at edge of bed and do sidesteps up towards pillow. She participated in her post-op exercises. She is progressing well but slowly post-op day one. Continue to recommend SNF rehab at discharge. Goals Bed Mobility Goal Independent Transfer Goal Independent Gait Goal Standby Assistance,Front Wheel Walker Gait Distance 150 feet Other Goals up/down one step with fWW and SBA. Days to Meet Goals 7 Frequency of Treatment Frequency Of Treatment Twice a Day Treatment Plan Physical Therapy Treatment Plan Bed Mobility Training,Transfer Training,Gait Training, Therapeutic Exercise,Balance Retraining,Post Op Education, Discharge Planning,Hot or Cold Pack,Neuromuscular Re-ed Weight Bearing Status Weight Bearing Status Weight Bear as Tolerated Allowed Weight Bearing Amount (enter % left LE with FWW or #) (%) Recommendations To Nursing Amount of Assist Needed 1 Person Assist Discharge Recommendations PT Discharge Recommendations SNF Rehab Equipment Needed for Home Before FWW if she goes home Discharge Transportation Needs at Discharge Private Vehicle,Wheelchair/ Cabulance - PT assist 1P
[2024-12-04] MEDS: CLOPIDOGREL 75 MG TABLET PO (17:06)
--- NOTE | 2024-12-04 17:37 | DIET.PN1 ---
Dietary Progress Note Assessment: F/u with pt at bedside this morning. Reported tolerating meals, preferring softer meat and extra sauces for better tolerance. Coordinated with unit host. Variable PO intakes so far, pt reports typically doing small freq meals. Ordered glucerna 1x/d to drink as snack when needed, which pt has had in past and tolerates. Will monitor PO intakes and BG. Ht: 162.56 cm Wt: 68.039 kg BMI: 25.7 Last BM: 11/29/24 (12/03/24 16:39) MNA: 7 Hao Score: 20 Diet: 12/04/24 Breakfast Carbohydrate Consistent Diet Diet Modifications: Carbohydrate level: Medium (3 CHO) Reflex DM orders: No Food Texture: Level 7 - Regular Liquid Consistency: Level 0 - Thin Nutrition Percent Meal Consumed 50% 12/04/24 12:51 Percent Meal Consumed 100% 12/04/24 10:00 Percent Meal Consumed 0% 12/03/24 19:00 Labs: RBC 3.94 X10^6/uL (4.0-5.2) L 12/04/24 05:10 Hgb 11.4 g/dL (12.0-16.0) L 12/04/24 05:10 Hct 34.6 % (36-46) L 12/04/24 05:10 Creatinine 1.26 mg/dL (0.52-1.04) H 12/04/24 05:10 Hemoglobin A1c 5.8 % (4.0-6.0) 12/01/24 14:00 Electronically Signed by: Marie Qureshi 12/04/24 17:37 Clinical Dietitian [address] [address]
[2024-12-04] MEDS: SENNOSIDES 8.6 MG TABLET 17.2 MG PO (20:07)
[2024-12-04] MEDS: HYDROMORPHONE 0.5 MG INJ IV (22:17)
[2024-12-05] VITALS (15 sets, daily range): BP systolic 122–202; BP diastolic 52–84; PULSE 78–114; RESP 16–23; TEMP 36.5–37.7; O2SAT 87–97
[2024-12-05] MEDS: ACETAMINOPHEN 325 MG TABLET 650 MG PO (04:09)
--- NOTE | 2024-12-05 07:47 | P.DS_ITS ---
History of Present Illness History of Present Illness Date Patient Seen: 12/05/24 Time Patient Seen: 07:47 Date of Onset of Symptoms: 12/01/24 Chief complaint: Fall at 0700, Left hip pain Narrative: Date of admission 12/01/2024: Date of discharge 12/05/2024: Admission diagnosis femoral neck fracture Discharge diagnosis: Femoral neck fracture status post ORIF Chief complaint: Left hip pain following ground level fall with nondisplaced femoral neck fracture History of present illness: 69-year-old female with a history of COPD type 2 diabetes obesity chronic kidney disease had a ground level fall this morning late on the hard floor waiting for the pain to subside which did not. Eventually patient was brought to the emergency department for an evaluation. Findings in the ER significant for left femoral neck fracture nondisplaced. Case was discussed with anesthesia and Orthopedic surgery the consensus was to get a CT to evaluate to see if it requires surgery or could be managed conservatively. Review of systems: Patient reports a 20-40 lb involuntary weight loss over September and October due to being unable to eat or drink without vomiting food back up or with abdominal pain. GI evaluation with a programming intern planned prior to this accident. No chest pain shortness for breath palpitations No paresthesia or paresis No urinary symptoms Physical exam: Elderly female alert but confused and difficulty focusing after receiving hydromorphone HEENT poor dentition otherwise unremarkable Neck no carotid bruits or JVD Heart rate and rhythm regular loud 3/6 systolic murmur most audible in the aortic position Lungs with end inspiratory wheezes and shortened respiratory phases Abdomen no masses bowel sounds present nontender Extremities no cyanosis clubbing edema Good capillary refills and dorsalis pedis pulses bilaterally Assessment and plan: Nondisplaced closed Left femoral neck fracture secondary to ground level fall: -no complications postoperatively -Patient agreeable to inpatient rehab -making arrangements for nursing home care of her with dementia Reduced GFR chronic kidney disease in setting of previous diabetes -avoid nephrotoxic agents -renally dose medications COPD: Stable without exacerbation -nebulizer as needed for wheezing or shortness of breath Type 2 diabetes no longer requiring medication due to weight loss -monitor a.c. HS glucoses Unintentional weight loss 20-40 lb in September and October -is established with programming intern to determine the etiology DVT prophylaxis:1 dose of 5000 units subQ heparin and then discretion per Orthopedic surgery Full code blue Time-Based Coding I spent 35 minutes evaluating this patient with a least 50% of the time in direct contact with the patient in evaluation Discharge Providers Provider Date of admission: 12/01/24 16:43 Discharge Date: 12/05/24 Primary care physician: Alejandrina Mojica PA-C Consults: 12/02/24 06:00 Consult to Orthopedic Surgery Routine Comment: Consulting Provider: Jae Victor Reason for consultation: L femur fracture - per MD Bryant notes/report Has provider been notified: Yes 12/03/24 19:01 Consult to Discharge Planning Routine Comment: Consult to Occupational Therapy Evaluate & Treat Comment: Physician Instructions: Evaluate and treat Consult to Physical Therapy Evaluate & Treat Comment: Physician Instructions: Evaluate and Treat Discharge provider: Gopi Bryant MD Exam Vital Signs (past 8 hours): - 12/05/24 01:56 12/05/24 02:50 12/05/24 06:00 Temperature 97.7 F Pulse Rate 80 Respiratory Rate 19 Blood Pressure 122/56 L Pulse Oximetry 92 96 96 Oxygen Delivery Method Nasal Cannula Nasal Cannula Oxygen Flow Rate 3 2 2 Fraction of Inspired Oxygen 28 SaO2/FiO2 Ratio 339 Oxygen Delivery Method Nasal Cannula Oxygen Flow Rate 2 Objective Labs 12/04/24 05:10 12/04/24 05:10 PFSH Social History household members: spouse Smoking Status: Former smoker alcohol intake: never Discharge Plan Discharge Plan Patient Disposition: Xfer Inpatient Rehab Transfer to: [facility] Discharge orders & Medications Discharge Orders: Discharge (Order); Ordered 12/05/24 Ordered By: Gopi Bryant Prescriptions: New oxycodone 5 mg Tablet 5 mg PO Q3H PRN (Reason: Pain, Moderate (4-6)) Qty: 12 0RF ipratropium-albuterol 0.5 mg-3 mg(2.5 mg base)/3 mL Solution For Nebulization 3 ml INH Q1H PRN (Reason: Shortness Of Breath) Qty: 30 0RF polyethylene glycol 3350 17 gram Powder In Packet 17 g PO DAILY Qty: 14 0RF acetaminophen 325 mg Tablet 650 mg PO Q6H Qty: 1 0RF bisacodyl 10 mg Suppository 10 mg WV DAILY PRN (Reason: Constipation) Qty: 12 0RF docusate sodium 100 mg Capsule 100 mg PO BID Qty: 1 0RF sennosides [senna] 8.6 mg Tablet 17.2 mg PO BEDTIME Qty: 1 0RF No Action clopidogrel 75 mg tablet 75 mg PO DAILY Follow up/Referrals: Matt Owusu ARNP [Non-Staff] - 12/30/24 8:40 am (APPT:12/30 @ 8:40 am with Jose R PITT please arrive 15 min prior to your scheduled appointment time ) Jae Victor MD [Physician] - 1 Week Alejandrina Mojica PA-C [Primary Care Provider] - Diet/Activity/Treatments Diet: Carb-consistent/Diabetic Food texture: Regular [facility] Reason for rehabilitation: Post-operative therapy Visit Report/Discharge Packet Instructions: DI for Open Reduction Internal Fixation Surgery Discharge Data Primary Care Provider: Alejandrina Mojica VTE Deep Vein Thrombosis/Pulmonary Embolism Present on Admission: No
[2024-12-05] MEDS: CLOPIDOGREL 75 MG TABLET PO (09:03)
[2024-12-05] MEDS: polyethylene glycoL 3350 17 GM POWD.PACK PO (09:03)
[2024-12-05] MEDS: DOCUSATE 100 MG CAPSULE PO (09:03)
[2024-12-05] MEDS: ASPIRIN EC 81 MG TABLET PO (09:03)
--- NOTE | 2024-12-05 09:14 | CM.DPC ---
Addendum entered by KENNY Garcia 12/05/24 15:39: ADD: Pt now with a fever and increased confusion and discharge cancelled for today. WILBER updated Dennise at [facility] and she will work on transport for tomorrow Sat. BF Addendum entered by KENNY Garcia 12/05/24 11:40: ADD: Per [facility] [place], they cannot accept pt today but likely could accept if another day. Return call from [facility] [place] with SNF auth #[id number] and will do single case agreement with [facility]. [facility] can accept and [facility]. BF Original Note: DCP SNF Planning: Per MD, pt medically stable to d/c to lower level of care and no identified barriers to discharge. Per PT/OT, recommending SNF at d/c before safe return home. WILBER met bedside with pt and explained role and pt confirms she feels she is not safe for d/c directly home today and agreeable with SNF referrals and provided SNF Choice List for those contracted [place] SNFs and preference is 1) [facility] 2) [facility]. WILBER contacted Dennise at [facility] and she confirms they have beds and willing to review and secure emailed referral. Left msg with [facility] to determine if they have open beds for option of admit today. WILBER contacted Casey at [place] and updated on clinicals faxed to review for SNF auth likely at [facility] and she will review this AM. PASRR completed in anticipation of SNF. KENNY Garcia
--- NOTE | 2024-12-05 11:10 | OT.IP.TRT ---
Current Diagnoses Fracture of unspecified part of neck of left femur, initial encounter for closed fracture (12/01/24) Surgery Performed Operation Date: 12/02/24 12:00 <No data on this case meets the specified criteria> Operation Date: 12/03/24 17:00 Actual Procedures p ORIF Hip/Cannulated Screws(Left) - Jae Victor MD Occupational Therapy Treatment Note M2 OT-IP Current Condition Start: 12/04/24 14:20 Freq: Status: Active Protocol: Document 12/04/24 14:21 [facility] (Rec: 12/04/24 14:35 [facility] [id number]) Occupational Therapy Current Condition Current Condition Evaluation Date 12/04/24 Treatment Diagnosis S/P L ORIF Diagnosis Onset Date 12/01/24 M3 OT- IP Subjective and Pain Start: 12/04/24 14:20 Freq: Status: Active Protocol: Document 12/05/24 11:26 [facility] (Rec: 12/05/24 11:33 [facility] [id number]) OT- Subjective Occupational Therapy Visit Type Type Treatment Note Visit Start Time 11:10 Visit Stop Time 11:23 Occupational Therapy Visit Comments Patient Comments Pt not responding to questions well and coughing a lot, notified nursing of change in alertness from yesterday's OT session. M4 OT- IP ADL's Start: 12/04/24 14:20 Freq: Status: Active Protocol: Document 12/04/24 14:21 [facility] (Rec: 12/04/24 14:35 [facility] [id number]) OT ADL-Grooming Comments OT Grooming Comments Not performed. OT ADL-Oral Care Comments Oral Care Comments Not performed. OT ADL-Dressing General Eval Lower Body Dressing Ability Maximum Assistance Areas Needing Assistance Socks Comments OT Dressing Comments Able to show pt use of LB dressing equipment. OT ADL-Toileting General Evaluation Toileting Ability Total Assistance Comments OT Toileting Comments Lorenzo in. OT ADL-Bathing Comments OT Bathing Comments Not performed, Sponge bath more appropriate at this time due to buckling of LLE. M5 OT- IP IADL's Start: 12/04/24 14:20 Freq: Status: Active Protocol: Document 12/04/24 14:21 [facility] (Rec: 12/04/24 14:35 [facility] [id number]) OT-Instrumental Activities of Daily Living Deficits IADL Deficits Identified Deficits Home Safety Awareness Awareness of Need for Assistance at Home Good Awareness Medication Management Medication Management Comments Pt is a bit groggy and at this time may need assist. Money Management Money Management Comments Pt is a bit groggy and at this time may need assist. Meal Preparation Meal Preparation Comments Pt will need assist. Engine Setter Engine Setter Comments Pt will need assist. M6 OT- IP Functional Cognition Start: 12/04/24 14:20 Freq: Status: Active Protocol: Document 12/05/24 11:26 [facility] (Rec: 12/05/24 11:33 [facility] [id number]) Cognitive Factors Limiting Selfcare Function Cognitive Ability Level of Alertness Confusional State Patient Orientation Name,Birthday Attention Span Ability Capable of Focused Attention, Unable to Sustain Attention Ability to Follow Commands Able to Follow One Step Commands with Increased Time, Able to Follow One Step Commands with Repetition Cognitive Comments Cognitive Assessment Comments Pt thinking she was in [place] and not aware that she is in the hospital or that she had surgery. Notified nursing of pt's confusion. Pt also talking to her phone which was turned off and states, ok I am going to sleep now. M7 OT- IP Mobility and Balance Start: 12/04/24 14:20 Freq: Status: Active Protocol: Document 12/05/24 11:26 [facility] (Rec: 12/05/24 11:33 [facility] [id number]) OT- Bed Mobility Assessment Scooting Scooting to Edge of Bed Moderate Assistance OT-Transfer Assessment Comments Mobility Comments Pt initially not wanting to get up and then agreed however having difficulty with initiation her movements. MODA to help scoot back in the recliner. Pt's O2 at 93%. M8 OT- IP Objective Assessments Start: 12/04/24 14:20 Freq: Status: Active Protocol: Document 12/04/24 14:21 [facility] (Rec: 12/04/24 14:35 [facility] [id number]) OT Gross Range of Motion Upper Extremity Range of Motion Assessment Within Functional Limits OT Strength Upper Extremity Strength Assessment Within Functional Limits M9 OT- IP Assessment and Plan Start: 12/04/24 14:20 Freq: Status: Active Protocol: Document 12/05/24 11:26 [facility] (Rec: 12/05/24 11:33 [facility] [id number]) OT Summary Assessment and Plan Potential Rehabilitation Potential Good Analytic Complexity at Evaluation Moderate Summary OT Impairments Pain,Balance,Functional Mobility,Grooming,Dressing, Toileting,Bathing,Toilet Transfers,Shower Transfers, Activity Tolerance Progress Towards Goals Slow Progress due to Pain,Slow Progress due to Medical Issues,Slow Progress due to Cognition Assessment Summary Pt having confusion today and able to notify pt's nurse to change in orientation from yesterday's OT session. Pt to go to skilled rehab when medically stable. Goals Self-Feeding Goal Independent Grooming Goal Independent Dressing Goal Independent Toileting Goal Independent Bathing Goal Independent Toilet Transfer Goal Independent Shower Transfer Goal Independent Days to Meet Goals 20 Frequency of Treatment Other frequency 5x/week Treatment Plan OT Treatment Plan ADL Training,Functional Mobility,Patient/Family Education,Discharge Planning Other Treatment Recommendations and Next standing ADL's at sink with Treatment Focus FWW Discharge Recommendations OT Discharge Recommendations SNF Rehab Transportation Needs at Discharge Wheelchair/Cabulance
--- NOTE | 2024-12-05 11:45 | PT-IP ANOTE ---
Holding Physical Therapy treatment. Pt is up in the recliner but is more confused and lethargic today. She does not want to go back to bed at this time. Coordinated care with her nurse with concern over pt's change in status.
[2024-12-05] MEDS: ALBUTEROL/IPRATROPIUM 3 ML AMPUL INH ×4 (11:49→22:54)
--- NOTE | 2024-12-05 14:27 | PC.NURSE ---
Dayshift : pt lethargic, left message with Dr Bryant. Pt refused Covid test, tylenol and asked to be left alone. 1400 went into room, pt warm, with fever, confused, [facility], studio operations engineer in charge informed.
--- NOTE | 2024-12-05 14:36 | DI.RAD.S_ITS ---
PROCEDURE: XR CHEST 1V INDICATIONS: tahypnea TECHNIQUE: One view of the chest was acquired. COMPARISON: [facility], CR, XR CHEST 2 VIEWS, 10/14/2024, 9:52. [facility], CR, XR CHEST 1V, 12/01/2024, 14:09. FINDINGS: Surgical changes and devices: None. Lungs and pleura: Lungs are abnormal with worsening alveolar infiltration present bilaterally. No pleural effusions or pneumothorax. Scattered areas of lung scarring are seen, better visualized on the comparison study from 12/01/24 and 10/14/24. Mediastinum: Mediastinal contours appear normal. Heart size is at the upper limits of normal. Bones and chest wall: No suspicious bony lesions. Overlying soft tissues appear unremarkable. IMPRESSION: The heart size is at the upper limits of normal and the worsening alveolar airspace disease pattern raises concern for either cardiogenic pulmonary edema superimposed on chronic lung disease versus atypical/viral pneumonia also superimposed on prior chronic lung disease. Dictated by: Gopi Martins M.D. on 12/05/2024 at 14:54 Approved by: Gopi Martins M.D. on 12/05/2024 at 14:56
[2024-12-05 15:30] LABS: Add Manual Diff / Slide Review NO; Basophils Absolute Auto 0 /uL (0-100); Basophils Percent Auto 0.3 % (0-2); Eosinophils Absolute Auto 0 /uL (0-450); Eosinophils Percent Auto 0.5 % (2-4); Hematocrit 35.7 % (36-46); Hemoglobin 11.8 g/dL (12.0-16.0); Lymphocytes Absolute Auto 300 /uL (1100-4500); Lymphocytes Percent Auto 8.7 % (25-40); Mean Corpuscular HGB Conc 33.1 % (30-36); Mean Corpuscular Hemoglobin 28.7 PG (26-34); Mean Corpuscular Volume 86.9 fL (80-100); Monocytes Absolute Auto 400 /uL (0-900); Monocytes Percent Auto 10.1 % (3-14); Neutrophils Absolute Auto 3000 /uL (1500-7000); Neutrophils Percent Auto 80.4 % (50-75); Platelet Count 163 X10^3/uL (150-400); Red Cell Distribution Width 14.2 % (11.6-14.8); White Blood Cell Count 3.8 X10^3/uL (4.5-11.0)
[2024-12-05 15:31] LABS: Appearance Urine UA CLEAR; Bilirubin Urine UA NEGATIVE (NEGATIVE); Color Urine UA YELLOW; Glucose Urine UA NEGATIVE (Negative); Ketones Urine UA NEGATIVE (NEGATIVE); Leukocyte Esterase Urine UA NEGATIVE (NEGATIVE); Nitrite Urine UA NEGATIVE (Negative); Occult Blood Urine UA 2+ (Negative); Protein Urine UA 2+ (Negative); Urobilinogen Urine UA 0.2 E.U./dL (0.2)
--- NOTE | 2024-12-05 15:37 | PT-IP ANOTE ---
Holding Physical therapy treatment this afternoon. Pt continues to be confused. She has a fever. She is being assessed for possible new infection. Will check back tomorrow.
[2024-12-05 15:40] LABS: pH Urine UA 5.5 (4.5-8.0)
[2024-12-05 15:57] LABS: Bacteria Urine Occasional (0-1); Culture Indicated Urine Cult Not Indicated; RBC Urine 0-1/HPF (0-5/HPF); Squamous Epithelial Cell Urine 0-1 /HPF (0-5/HPF); Urine Volume 10mL (spun); WBC Urine 0-1/HPF (0-5/HPF)
[2024-12-05] MEDS: cefTRIAXone 1,000 MG in SODIUM CHLORIDE 0.9% 100 ML 200 MG IV (17:38)
[2024-12-05] MEDS: SODIUM CHLORIDE 0.9% 1,000 ML 125 ML IV (18:18)
[2024-12-06] VITALS (13 sets, daily range): BP systolic 138–185; BP diastolic 57–66; PULSE 75–101; RESP 16–20; TEMP 35.9–37.6; O2SAT 90–97
[2024-12-06] MEDS: ACETAMINOPHEN 325 MG TABLET 650 MG PO ×3 (00:19→17:11)
[2024-12-06] MEDS: FUROSEMIDE 40 MG TABLET PO (00:19)
--- NOTE | 2024-12-06 02:05 | DI.RAD.S_ITS ---
PROCEDURE: XR CHEST 1V INDICATIONS: follow up TECHNIQUE: One view of the chest was acquired. COMPARISON: [facility], CT, CT ABDOMEN PELVIS WITH CONTRAST, 10/14/2024, 11:53. [facility], CR, XR CHEST 1V, 12/05/2024, 14:32. [facility], CR, XR CHEST 1V, 12/01/2024, 14:09. FINDINGS: Surgical changes and devices: None. Lungs and pleura: Hyperinflation with moderate emphysema. Small left pleural effusion. Left retrocardiac opacification with air bronchograms.. No pleural effusions or pneumothorax. Mediastinum: Aortic arch calcifications. Mediastinal contours appear normal. Heart size is normal. Bones and chest wall: No suspicious bony lesions. Overlying soft tissues appear unremarkable. IMPRESSION: 1. Small left pleural effusion with left basilar consolidation; consider pneumonia. 2. Background of emphysema. Dictated by: Chano Gonzales M.D. on 12/06/2024 at 9:55 Approved by: Chano Gonzales M.D. on 12/06/2024 at 9:57
[2024-12-06 02:31] LABS: Allen Test for ABG Passed? Positive; Base Excess ABG 8.9 mmol/L (-2-3); Blood Gas Collection Site Right Radial; Delivery System Cannula; HCO3 ABG 32 mmol/L (23-27); Oxygen Saturation ABG 89 % (95-100); PCO2 ABG 39.4 mmHg (35-45); PO2 ABG 51 mmHg (80-100); TCO2 ABG 31 mmol/L (23-27); pH ABG 7.52 (7.35-7.45)
[2024-12-06 02:34] LABS: Add Manual Diff / Slide Review NO; Basophils Absolute Auto 0 /uL (0-100); Basophils Percent Auto 0.3 % (0-2); Eosinophils Absolute Auto 0 /uL (0-450); Eosinophils Percent Auto 0.2 % (2-4); Hematocrit 33.5 % (36-46); Hemoglobin 11.3 g/dL (12.0-16.0); Lymphocytes Absolute Auto 700 /uL (1100-4500); Lymphocytes Percent Auto 18.5 % (25-40); Mean Corpuscular HGB Conc 33.7 % (30-36); Mean Corpuscular Hemoglobin 28.8 PG (26-34); Mean Corpuscular Volume 85.3 fL (80-100); Monocytes Absolute Auto 600 /uL (0-900); Monocytes Percent Auto 15.9 % (3-14); Neutrophils Absolute Auto 2300 /uL (1500-7000); Neutrophils Percent Auto 65.1 % (50-75); Platelet Count 153 X10^3/uL (150-400); Red Blood Cell Count 3.93 X10^6/uL (4.0-5.2); Red Cell Distribution Width 14.4 % (11.6-14.8); White Blood Cell Count 3.6 X10^3/uL (4.5-11.0)
--- NOTE | 2024-12-06 02:41 | PC.NURSE ---
Addendum entered by Olesya Guerrero R.N. 12/06/24 06:32: 625cc urinary output after receiving lasix. Addendum entered by Olesya Guerrero R.N. 12/06/24 04:19: 12/06/24 - 01:55; Contacted Dr. Busby regarding change in mental status, tachycardia, and hypertension. Received orders for BMP, CBC, Lactate and repeat CXR. Original Note: 12/05/24- 19:15; Noted patient removed nasal canula, desatted to 55% on RA. Placed nasal canula back on and sats up to 91% on 3L. Called [facility] requesting breathing treatment and they stated that she was just given a treatment. Also, pt pulled out IV. Refused another IV, Dr. Busby notified and stated its ok to leave IV out for now. Patient becoming more agitated and refusing care through the night, began pulling at catheter, pulling clothes off. Also refused medications. 12/05/24- 23:15; Spoke with Dr. Sanches regarding desaturation tonight vs. last two nights. He reviewed CXR and ordered PO lasix 40mg. Pt took medication in applesauce.
[2024-12-06 02:42] LABS: BUN Creatinine Ratio 16.4 (6-22); Blood Urea Nitrogen 20 mg/dL (7-17); Calcium 8.7 mg/dL (8.4-10.2); Carbon Dioxide 27 mmol/L (22-32); Chloride 101 mmol/L (98-107); Estimated Glomerular Filt Rate 49 mL/min (>60); Glucose 143 mg/dL (80-110); HEMOLYSIS < 15 (0-50); Potassium 3.6 mmol/L (3.4-5.1); Sodium 135 mmol/L (137-145)
[2024-12-06] MEDS: INSULIN LISPRO 100 UNIT/ML 3ML VIAL SUBCUT ×3 (08:01→17:05)
[2024-12-06] MEDS: ALBUTEROL/IPRATROPIUM 3 ML AMPUL INH ×4 (08:21→19:36)
[2024-12-06] MEDS: CLOPIDOGREL 75 MG TABLET PO (08:48)
[2024-12-06] MEDS: ASPIRIN EC 81 MG TABLET PO ×2 (08:48→20:47)
--- NOTE | 2024-12-06 09:39 | P.PN_ITS ---
Subjective Subjective Date Patient Seen: 12/06/24 Time Patient Seen: 09:39 Interval history: Patient's pain is controlled with oral medication. ?Pain is localized to surgical site. ?Patient declines any new numbness or tingling at the surgical extremity. ?Patient denies any dizziness, light-headedness, nausea, vomiting, or chills. Patient has had episodes of cough and had an episode of fever yesterday, per nurse, but the patient does not remember. Patient was to be discharged yesterday but developed a fever and diagnosed with a urinary tract infection, per nursing staff. Exam Vital Signs (past 8 hours): - 12/06/24 02:00 12/06/24 06:00 12/06/24 08:00 Temperature 97.1 F L Pulse Rate 78 Respiratory Rate 18 Blood Pressure 146/64 H Pulse Oximetry 92 92 92 Oxygen Delivery Method Nasal Cannula Nasal Cannula Oxygen Flow Rate 3 3 3 12/06/24 08:21 Temperature Pulse Rate 82 Respiratory Rate 16 Blood Pressure Pulse Oximetry 93 Oxygen Delivery Method Nasal Cannula Oxygen Flow Rate 2 Fraction of Inspired Oxygen 32 SaO2/FiO2 Ratio 296 Oxygen Delivery Method Nasal Cannula Oxygen Flow Rate 2 Narrative Exam Narrative: Patient found sleeping lying with partial weight onto the left hip. Easily aroused. Patient is able to answer questions. 5/5 strength in hip flexors, quadriceps, hamstrings, DF, PF, EHL right. Left lower extremity slow to perform maneuvers but is able to do so. 4/5 strength in hip flexors, quadriceps, hamstrings, DF, PF, EHL right Sensation to light touch intact throughout BLE. Calves soft, compressible, nontender. Dressing placed intraoperatively CDI. SCDs were off. Resp Effort & Inspection: normal respiratory effort and able to speak in complete sentences Objective Labs 12/06/24 02:25 12/06/24 02:25 Labs: Laboratory Results - last 24 hr 12/05/24 12/05/24 12/06/24 14:25 15:09 02:25 WBC 3.8 L 3.6 L RBC 4.10 3.93 L Hgb 11.8 L 11.3 L Hct 35.7 L 33.5 L MCV 86.9 85.3 MCH 28.7 28.8 MCHC 33.1 33.7 RDW 14.2 14.4 Plt Count 163 153 Neut % (Auto) 80.4 H 65.1 Lymph % (Auto) 8.7 L 18.5 L [place] % (Auto) 10.1 15.9 H Eos % (Auto) 0.5 L 0.2 L Baso % (Auto) 0.3 0.3 Neut # (Auto) 3000 2300 Lymph # (Auto) 300 L 700 L [place] # (Auto) 400 600 Eos # (Auto) 0 0 Baso # (Auto) 0 0 ABG Sample Site ABG pH ABG pCO2 ABG pO2 ABG HCO3 ABG Total CO2 ABG O2 Saturation ABG Base Excess [place] Test O2 Delivery Device FiO2 % Sodium 135 L Potassium 3.6 D Chloride 101 Carbon Dioxide 27 BUN 20 H Creatinine 1.22 H Estimated GFR 49 L BUN/Creatinine Ratio 16.4 Glucose 143 H Lactate 1.0 Calcium 8.7 Urine Color Yellow Urine Appearance Clear Urine pH 5.5 Ur Specific [place] 1.020 Urine Protein 2+ H Urine Glucose (UA) Negative Urine Ketones Negative Urine Occult Blood 2+ H Urine Nitrate Negative Urine Bilirubin Negative Urine Urobilinogen 0.2 Ur Leukocyte Esterase Negative Urine RBC 0-1/hpf Urine WBC 0-1/hpf Ur Squamous Epith Cells 0-1 /hpf Urine Bacteria Occasional (0-1) Ur Culture Indicated? Cult not indicated Vol Urine Centrifuged 10ml (spun) 12/06/24 02:27 WBC RBC Hgb Hct MCV MCH MCHC RDW Plt Count Neut % (Auto) Lymph % (Auto) [place] % (Auto) Eos % (Auto) Baso % (Auto) Neut # (Auto) Lymph # (Auto) [place] # (Auto) Eos # (Auto) Baso # (Auto) ABG Sample Site Right radial ABG pH 7.52 H ABG pCO2 39.4 ABG pO2 51 L ABG HCO3 32 H ABG Total CO2 31 H ABG O2 Saturation 89 L ABG Base Excess 8.9 H Gilberto Test Positive O2 Delivery Device Cannula FiO2 % 36.0 % Sodium Potassium Chloride Carbon Dioxide BUN Creatinine Estimated GFR BUN/Creatinine Ratio Glucose Lactate Calcium Urine Color Urine Appearance Urine pH Ur Specific [place] Urine Protein Urine Glucose (UA) Urine Ketones Urine Occult Blood Urine Nitrate Urine Bilirubin Urine Urobilinogen Ur Leukocyte Esterase Urine RBC Urine WBC Ur Squamous Epith Cells Urine Bacteria Ur Culture Indicated? Vol Urine Centrifuged PFSH Social History household members: spouse Smoking Status: Former smoker alcohol intake: never Assessment & Plan Post-op Postoperative Procedures: Procedures Operation Date: 12/02/24 12:00 <No data on this case meets the specified criteria> Operation Date: 12/03/24 17:00 Actual Procedure Side Surgeon p ORIF Hip/Cannulated Screws Left Jae Victor MD Postoperative day: 3 Postoperative plan: routine post-op care and ambulate Postoperative plan narrative: Weightbearing as tolerated. Ambulate with physical therapy - Continue with medical management for her multiple medical comorbidities including her UTI, aortic stenosis, COPD, and renal dysfunction - Aspirin 81 mg twice per day for DVT prophylaxis. She also takes Plavix which can be restarted 24 hours postoperatively - Discharge disposition pain management per hospitalist. - Follow up in 2 weeks at [facility] orthopedics for a wound check and radiographs Time Spent With Patient Time with patient: less than 15 minutes Quality VTE Deep Vein Thrombosis/Pulmonary Embolism Present on Admission: No
--- NOTE | 2024-12-06 10:37 | CM.DPC ---
DCP Cont: Per MD, pt with ongoing fever and some hypoxia and not yet medically stable to d/c yet today and will get further labs and look at possible aspiration pneumonia as potential cause and r/o other medical needs. WILEBR updated Dennise at [facility] and she confirms they have staffing to accept pt tomorrow Sun but no transport but would be agreeable with paying for cabulance from [facility], [facility], or [facility] if they have transport available Sunday. Plan: SW to follow closely tomorrow Sun to determine if pt medically stable to d/c vs Sunday. KENNY Garcia
--- NOTE | 2024-12-06 10:53 | PC.NURSE ---
Day Shift: Lorenzo removed intact, no issues, pt tolerated well.
--- NOTE | 2024-12-06 11:01 | PM.PN.IH.1 ---
Subjective Subjective Date Patient Seen: 12/06/24 Time Patient Seen: 09:39 Interval history: Narrative: The patient is a 69-year-old female who presented with a femoral neck fracture. The fracture occurred after the patient fell while getting up to go to the bathroom. This incident happened yesterday. The patient reported losing her balance and fell, resulting in the injury to her left hip. She has not reported pain in any other areas. Her medical history is significant for chronic kidney disease, severe chronic obstructive pulmonary disease (COPD), and a history of multiple strokes. Given these conditions, a decision was made to perform a smaller surgical procedure involving the placement of three screws to minimize blood loss and postoperative complications. The patient is also known to have poorly controlled diabetes. Subjective The patient became confused last night with chest xray showing pneumonia. She reports cough and is mildly confused. Patient was to be discharged yesterday but developed a fever and diagnosed with a urinary tract infection, per nursing staff. Exam Vital Signs (past 8 hours): - 12/06/24 06:00 12/06/24 08:00 12/06/24 08:21 Temperature 97.1 F L Pulse Rate 78 82 Respiratory Rate 18 16 Blood Pressure 146/64 H Pulse Oximetry 92 92 93 Oxygen Delivery Method Nasal Cannula Nasal Cannula Oxygen Flow Rate 3 3 2 12/06/24 10:08 Temperature Pulse Rate Respiratory Rate Blood Pressure Pulse Oximetry 93 Oxygen Delivery Method Nasal Cannula Oxygen Flow Rate 3 Fraction of Inspired Oxygen 32 SaO2/FiO2 Ratio 296 Oxygen Delivery Method Nasal Cannula Oxygen Flow Rate 3 Narrative Exam Narrative: Elderly female alert but confused and difficulty focusing after receiving hydromorphone HEENT poor dentition otherwise unremarkable Neck no carotid bruits or JVD Heart rate and rhythm regular loud 3/6 systolic murmur most audible in the aortic position Lungs with end inspiratory wheezes and basilar crackles Abdomen no masses bowel sounds present nontender Extremities no cyanosis clubbing edema Good capillary refills and dorsalis pedis pulses bilaterally Objective Imaging Chest x-ray: Radiologist's impression: 1. Small left pleural effusion with left basilar consolidation; consider pneumonia. 2. Background of emphysema. Labs 12/06/24 02:25 12/06/24 02:25 Labs: Laboratory Results - last 24 hr 12/05/24 12/05/24 12/06/24 14:25 15:09 02:25 WBC 3.8 L 3.6 L RBC 4.10 3.93 L Hgb 11.8 L 11.3 L Hct 35.7 L 33.5 L MCV 86.9 85.3 MCH 28.7 28.8 MCHC 33.1 33.7 RDW 14.2 14.4 Plt Count 163 153 Neut % (Auto) 80.4 H 65.1 Lymph % (Auto) 8.7 L 18.5 L [place] % (Auto) 10.1 15.9 H Eos % (Auto) 0.5 L 0.2 L Baso % (Auto) 0.3 0.3 Neut # (Auto) 3000 2300 Lymph # (Auto) 300 L 700 L [place] # (Auto) 400 600 Eos # (Auto) 0 0 Baso # (Auto) 0 0 ABG Sample Site ABG pH ABG pCO2 ABG pO2 ABG HCO3 ABG Total CO2 ABG O2 Saturation ABG Base Excess [place]to Test O2 Delivery Device FiO2 % Sodium 135 L Potassium 3.6 D Chloride 101 Carbon Dioxide 27 BUN 20 H Creatinine 1.22 H Estimated GFR 49 L BUN/Creatinine Ratio 16.4 Glucose 143 H Lactate 1.0 Calcium 8.7 Urine Color Yellow Urine Appearance Clear Urine pH 5.5 Ur Specific [place] 1.020 Urine Protein 2+ H Urine Glucose (UA) Negative Urine Ketones Negative Urine Occult Blood 2+ H Urine Nitrate Negative Urine Bilirubin Negative Urine Urobilinogen 0.2 Ur Leukocyte Esterase Negative Urine RBC 0-1/hpf Urine WBC 0-1/hpf Ur Squamous Epith Cells 0-1 /hpf Urine Bacteria Occasional (0-1) Ur Culture Indicated? Cult not indicated Vol Urine Centrifuged 10ml (spun) 12/06/24 02:27 WBC RBC Hgb Hct MCV MCH MCHC RDW Plt Count Neut % (Auto) Lymph % (Auto) [place] % (Auto) Eos % (Auto) Baso % (Auto) Neut # (Auto) Lymph # (Auto) [place] # (Auto) Eos # (Auto) Baso # (Auto) ABG Sample Site Right radial ABG pH 7.52 H ABG pCO2 39.4 ABG pO2 51 L ABG HCO3 32 H ABG Total CO2 31 H ABG O2 Saturation 89 L ABG Base Excess 8.9 H Gilberto Test Positive O2 Delivery Device Cannula FiO2 % 36.0 % Sodium Potassium Chloride Carbon Dioxide BUN Creatinine Estimated GFR BUN/Creatinine Ratio Glucose Lactate Calcium Urine Color Urine Appearance Urine pH Ur Specific [place] Urine Protein Urine Glucose (UA) Urine Ketones Urine Occult Blood Urine Nitrate Urine Bilirubin Urine Urobilinogen Ur Leukocyte Esterase Urine RBC Urine WBC Ur Squamous Epith Cells Urine Bacteria Ur Culture Indicated? Vol Urine Centrifuged [facility] Social History household members: spouse Smoking Status: Former smoker alcohol intake: never Assessment & Plan Assessment & Plan narrative: Nondisplaced closed Left femoral neck fracture secondary to ground level fall: -no complications postoperatively -Patient agreeable to inpatient rehab -making arrangements for group home care of her with dementia Reduced GFR chronic kidney disease in setting of previous diabetes -avoid nephrotoxic agents -renally dose medications COPD: Stable without exacerbation -nebulizer as needed for wheezing or shortness of breath Type 2 diabetes no longer requiring medication due to weight loss -monitor a.c. HS glucoses Unintentional weight loss 20-40 lb in September and October -is established with acid correction hand to determine the etiology Fever, encephalopathy, sepsis syndrome due to UTI and pneumonia -treat underlying infections MDR E.coli UTI -treat with IV Levofloxacin Hospital-acquired pneumonia -treat with IV Levofloxacin -follow cultures -aspiration unlikely DVT prophylaxis:1 dose of 5000 units subQ heparin and then discretion per Orthopedic surgery Full code blue Quality VTE Deep Vein Thrombosis/Pulmonary Embolism Present on Admission: No [facility] [employer] Document charge(s): No Charge Codes Subsequent inpatient/observation care: [id number]
--- NOTE | 2024-12-06 11:11 | PT.IPTN ---
Current Diagnoses Fracture of unspecified part of neck of left femur, initial encounter for closed fracture (12/01/24) Surgery Performed Operation Date: 12/02/24 12:00 <No data on this case meets the specified criteria> Operation Date: 12/03/24 17:00 Actual Procedures p ORIF Hip/Cannulated Screws(Left) - Jae Victor MD Physical Therapy Treatment Note M2 PT-IP Current Condition Start: 12/04/24 11:33 Freq: NEEDED Status: Active Protocol: Document 12/04/24 11:21 DLM (Rec: 12/04/24 11:56 DLM [id number]) Physical Therapy Current Condition Current Condition Evaluation Date 12/04/24 Treatment Diagnosis left hip ORIF 12/03/24 Onset Date 12/01/24 M3 PT-IP Subjective Start: 12/04/24 11:33 Freq: NEEDED Status: Active Protocol: Document 12/06/24 11:11 DLM (Rec: 12/06/24 11:30 DLM [id number]) Subjective Physical Therapy Visit Type Type Treatment Note Visit Start Time 10:50 Visit Stop Time 11:11 Notes 21 minutes 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 Physical Therapy Visit Comments Patient Comments She nods her head in response to simple questions, eyes stay closed Patient Goals she can not state today M5 PT-IP Objective Assessments Start: 12/04/24 11:33 Freq: NEEDED Status: Active Protocol: Document 12/06/24 11:11 DLM (Rec: 12/06/24 11:33 DLM [id number]) Orientation Orientation/Cognition Level of Alertness Lethargic Comments no verbalizations today, lethargic appears to have pain in left LE with movement of her hip but she can not rate nor describe it, was managed with gradual progression of assisted movements Muscle Tone Muscle Tone WNL Yes M6 PT-IP Treatment Start: 12/04/24 11:33 Freq: NEEDED Status: Active Protocol: Document 12/06/24 11:11 DLM (Rec: 12/06/24 11:30 DLM [id number]) Physical Therapy Treatment Exercises Exercises Ankle Pumps,Heel Slides,Supine Hip Abduction Education Education Provided Safety Other Treatments Other Treatment Performed assisted pt with bilateral LE exercise in supine, attempted isometric exercises but pt unable to complete these M7 PT-IP Assessment and Plan Start: 03/20/25 11:33 Freq: NEEDED Status: Active Protocol: Document 12/06/24 11:11 DLM (Rec: 12/06/24 11:30 DLM [id number]) PT Summary Assessment and Plan Summary Impairments Pain,ROM,Strength,Balance, Sensation,Bed Mobility, Transfers,Gait,Activity Tolerance Assessment Summary Pt has had significant decline in her medical status starting yesterday. Today she is lethargic and fatigued resting in bed. She is unable to participate in mobility nor gait. She was able to participate in exercises with assistance. She keeps her eyes closed this visit and only nods her head. No verbalizations. She continues to use supplemental oxygen at 2 LPM with sats 89-92%. Goals Bed Mobility Goal Independent Transfer Goal Independent Gait Goal Standby Assistance,Front Wheel Walker Gait Distance 150 feet Other Goals up/down one step with fWW and SBA. Days to Meet Goals 7 Frequency of Treatment Frequency Of Treatment Twice a Day Treatment Plan Physical Therapy Treatment Plan Bed Mobility Training,Transfer Training,Gait Training, Therapeutic Exercise,Balance Retraining,Post Op Education, Discharge Planning,Hot or Cold Pack,Neuromuscular Re-ed Precautions Other Precautions fall risk left femur fx s/p ORIF 12/03/24 New contact precautions ordered. Weight Bearing Status Weight Bearing Status Weight Bear as Tolerated Allowed Weight Bearing Amount (enter % left LE with FWW or #) (%) Recommendations To Nursing Amount of Assist Needed 2 Person Assist Discharge Recommendations PT Discharge Recommendations SNF Rehab Equipment Needed for Home Before FWW if she goes home Discharge Transportation Needs at Discharge Stretcher/Ambulance - PT assist 1-2
[2024-12-06] MEDS: levoFLOXacin 500 MG/100 ML PIGGYBACK 100 MG IV (11:55)
--- NOTE | 2024-12-06 15:30 | PT-IP ANOTE ---
Holding Physical Therapy treatment this afternoon. Pt continues to be lethargic and sleepy and unable to participate in mobility.
[2024-12-06] MEDS: SENNOSIDES 8.6 MG TABLET 17.2 MG PO (20:47)
[2024-12-06] MEDS: DOCUSATE 100 MG CAPSULE PO (20:48)
[2024-12-06] MEDS: OXYCODONE IR 5 MG TABLET PO (20:48)
[2024-12-07] VITALS (23 sets, daily range): BP systolic 105–184; BP diastolic 49–62; PULSE 88–113; RESP 16–28; TEMP 35.8–38.3; O2SAT 88–96
[2024-12-07] MEDS: OXYCODONE IR 5 MG TABLET PO ×3 (02:31→14:56)
[2024-12-07] MEDS: ACETAMINOPHEN 325 MG TABLET 650 MG PO ×3 (05:31→19:18)
[2024-12-07] MEDS: ALBUTEROL/IPRATROPIUM 3 ML AMPUL INH ×4 (07:05→22:49)
--- NOTE | 2024-12-07 07:24 | P.PN_ITS ---
Subjective Subjective Date Patient Seen: 12/07/24 Time Patient Seen: 11:10 Interval history: Narrative: The patient is a 69-year-old female who presented with a femoral neck fracture. The fracture occurred after the patient fell while getting up to go to the bathroom. This incident happened yesterday. The patient reported losing her balance and fell, resulting in the injury to her left hip. She has not reported pain in any other areas. Her medical history is significant for chronic kidney disease, severe chronic obstructive pulmonary disease (COPD), and a history of multiple strokes. Given these conditions, a decision was made to perform a smaller surgical procedure involving the placement of three screws to minimize blood loss and postoperative complications. The patient is also known to have poorly controlled diabetes. Subjective She reports persistent fatigue and weakness with a harsh cough and mild shortness of breath with mild exertion, on 4L oxygen with SaO2 94% this morning. Exam Vital Signs (past 8 hours): - 12/07/24 00:00 12/07/24 02:00 12/07/24 05:41 Temperature 96.4 F L 97.5 F L Pulse Rate 90 88 Respiratory Rate 20 18 Blood Pressure 142/55 H 167/62 H Pulse Oximetry 95 94 92 Oxygen Delivery Method Nasal Cannula Oxygen Flow Rate 3 3 3 Fraction of Inspired Oxygen 12/07/24 06:00 12/07/24 07:05 Temperature Pulse Rate 96 H Respiratory Rate 16 Blood Pressure Pulse Oximetry 94 94 Oxygen Delivery Method Nasal Cannula Nasal Cannula Oxygen Flow Rate 4 4 Fraction of Inspired Oxygen 36 Fraction of Inspired Oxygen 36 SaO2/FiO2 Ratio 261 Oxygen Delivery Method Nasal Cannula Oxygen Flow Rate 4 Narrative Exam Narrative: Elderly female alert, oriented, appears fatigued HEENT poor dentition otherwise unremarkable Neck no carotid bruits or JVD Heart rate and rhythm regular 2-3/6 systolic murmur Lungs with end inspiratory wheezes and basilar crackles Abdomen no masses bowel sounds present nontender Extremities no cyanosis clubbing edema Good capillary refills and dorsalis pedis pulses bilaterally Objective Imaging Chest x-ray: Radiologist's impression: 1. Small left pleural effusion with left basilar consolidation; consider pneumonia. 2. Background of emphysema. 12/06 Echo: Radiologist's impression: The ejection fraction is estimated to be 60-65%. Diastolic function could not be accurately assessed due to confounding valvular disease. The right ventricle is normal in size and function. There is mild mitral stenosis. Pulmonary artery pressures cannot be estimated because of the lack of a measurable TR jet velocity but the IVC suggests a CVP of around 8 mmHg. 12/02 Labs 12/07/24 08:43 12/07/24 08:43 Labs: Laboratory Results - last 24 hr 12/05/24 12/05/24 12/06/24 14:25 15:09 02:25 WBC 3.8 L 3.6 L RBC 4.10 3.93 L Hgb 11.8 L 11.3 L Hct 35.7 L 33.5 L MCV 86.9 85.3 MCH 28.7 28.8 MCHC 33.1 33.7 RDW 14.2 14.4 Plt Count 163 153 Neut % (Auto) 80.4 H 65.1 Lymph % (Auto) 8.7 L 18.5 L [place] % (Auto) 10.1 15.9 H Eos % (Auto) 0.5 L 0.2 L Baso % (Auto) 0.3 0.3 Neut # (Auto) 3000 2300 Lymph # (Auto) 300 L 700 L [place] # (Auto) 400 600 Eos # (Auto) 0 0 Baso # (Auto) 0 0 ABG Sample Site ABG pH ABG pCO2 ABG pO2 ABG HCO3 ABG Total CO2 ABG O2 Saturation ABG Base Excess Gilberto Test O2 Delivery Device FiO2 % Sodium 135 L Potassium 3.6 D Chloride 101 Carbon Dioxide 27 BUN 20 H Creatinine 1.22 H Estimated GFR 49 L BUN/Creatinine Ratio 16.4 Glucose 143 H Lactate 1.0 Calcium 8.7 Urine Color Yellow Urine Appearance Clear Urine pH 5.5 Ur Specific [place] 1.020 Urine Protein 2+ H Urine Glucose (UA) Negative Urine Ketones Negative Urine Occult Blood 2+ H Urine Nitrate Negative Urine Bilirubin Negative Urine Urobilinogen 0.2 Ur Leukocyte Esterase Negative Urine RBC 0-1/hpf Urine WBC 0-1/hpf Ur Squamous Epith Cells 0-1 /hpf Urine Bacteria Occasional (0-1) Ur Culture Indicated? Cult not indicated Vol Urine Centrifuged 10ml (spun) 12/06/24 02:27 WBC RBC Hgb Hct MCV MCH MCHC RDW Plt Count Neut % (Auto) Lymph % (Auto) [place] % (Auto) Eos % (Auto) Baso % (Auto) Neut # (Auto) Lymph # (Auto) [place] # (Auto) Eos # (Auto) Baso # (Auto) ABG Sample Site Right radial ABG pH 7.52 H ABG pCO2 39.4 ABG pO2 51 L ABG HCO3 32 H ABG Total CO2 31 H ABG O2 Saturation 89 L ABG Base Excess 8.9 H Gilberto Test Positive O2 Delivery Device Cannula FiO2 % 36.0 % Sodium Potassium Chloride Carbon Dioxide BUN Creatinine Estimated GFR BUN/Creatinine Ratio Glucose Lactate Calcium Urine Color Urine Appearance Urine pH Ur Specific [place] Urine Protein Urine Glucose (UA) Urine Ketones Urine Occult Blood Urine Nitrate Urine Bilirubin Urine Urobilinogen Ur Leukocyte Esterase Urine RBC Urine WBC Ur Squamous Epith Cells Urine Bacteria Ur Culture Indicated? Vol Urine Centrifuged [facility] Social History household members: spouse Smoking Status: Former smoker alcohol intake: never Assessment & Plan Assessment & Plan narrative: Nondisplaced closed Left femoral neck fracture secondary to ground level fall: -no complications postoperatively. Case reviewed with Dr. Melany Williamson of orthopedics. -plan for SNF when pulmonary status improved -making arrangements for jail care of her with dementia Reduced GFR chronic kidney disease in setting of previous diabetes -avoid nephrotoxic agents -renally dose medications COPD: Stable without exacerbation -nebulizer as needed for wheezing or shortness of breath Type 2 diabetes no longer requiring medication due to weight loss -monitor a.c. HS glucoses Unintentional weight loss 20-40 lb in September and October -is established with hairspring setter to determine the etiology Fever, encephalopathy, sepsis syndrome due to UTI and pneumonia -improved -treat underlying infections MDR E.coli UTI -treat with IV Levofloxacin Hospital-acquired pneumonia -treat with IV Levofloxacin -follow cultures -aspiration unlikely DVT prophylaxis:1 dose of 5000 units subQ heparin and then discretion per Orthopedic surgery Full code JOSÉ MIGUEL: Possibly 12/08 to SNF on oral antibiotics and possibly oxygen Quality VTE Deep Vein Thrombosis/Pulmonary Embolism Present on Admission: No IH PROFEE Sheet Turner Document charge(s): No Charge Codes Subsequent inpatient/observation care: [id number]
[2024-12-07] MEDS: CLOPIDOGREL 75 MG TABLET PO (08:08)
[2024-12-07] MEDS: ASPIRIN EC 81 MG TABLET PO (08:08)
[2024-12-07] MEDS: INSULIN LISPRO 100 UNIT/ML 3ML VIAL SUBCUT ×2 (08:08→13:00)
[2024-12-07 08:54] LABS: Add Manual Diff / Slide Review NO; Basophils Absolute Auto 0 /uL (0-100); Basophils Percent Auto 0.4 % (0-2); Eosinophils Absolute Auto 0 /uL (0-450); Eosinophils Percent Auto 0.3 % (2-4); Hematocrit 38.9 % (36-46); Hemoglobin 12.8 g/dL (12.0-16.0); Lymphocytes Absolute Auto 800 /uL (1100-4500); Lymphocytes Percent Auto 13.2 % (25-40); Mean Corpuscular HGB Conc 32.9 % (30-36); Mean Corpuscular Hemoglobin 28.4 PG (26-34); Mean Corpuscular Volume 86.6 fL (80-100); Monocytes Absolute Auto 400 /uL (0-900); Monocytes Percent Auto 6.4 % (3-14); Neutrophils Absolute Auto 4600 /uL (1500-7000); Neutrophils Percent Auto 79.7 % (50-75); Platelet Count 221 X10^3/uL (150-400); Red Blood Cell Count 4.49 X10^6/uL (4.0-5.2); Red Cell Distribution Width 14.7 % (11.6-14.8); White Blood Cell Count 5.8 X10^3/uL (4.5-11.0)
[2024-12-07 09:00] LABS: Alanine Aminotransferase 25 IU/L (<35); Albumin 3.7 g/dL (3.5-5.0); Alkaline Phosphatase 46 U/L (38-126); Aspartate Aminotransferase 51 IU/L (14-36); Bilirubin Total 0.8 mg/dL (0.2-1.3); Blood Urea Nitrogen 31 mg/dL (7-17); Calcium 9.2 mg/dL (8.4-10.2); Carbon Dioxide 28 mmol/L (22-32); Chloride 97 mmol/L (98-107); Estimated Glomerular Filt Rate 36 mL/min (>60); Globulin 3.7 g/dL (1.7-4.1); Glucose 173 mg/dL (80-110); HEMOLYSIS 27 (0-50); Sodium 137 mmol/L (137-145); Total Protein 7.4 g/dL (6.3-8.2)
[2024-12-07 09:02] LABS: Potassium 4.9 mmol/L (3.4-5.1)
--- NOTE | 2024-12-07 09:16 | PM.PNPO.1 ---
Subjective Subjective Interval history: PATIENT SUMMARY: The patient presented for follow-up after closure reduction and percutaneous pinning of a left femoral neck fracture. SUBJECTIVE: The patient reported a history of COPD, chronic kidney disease (not on dialysis), mild aortic stenosis, and a urinary tract infection diagnosed during her stay. She had been weight-bearing as tolerated and making slow progress with physical therapy. The patient did not report smoking currently but mentioned a history of smoking. OBJECTIVE: Vitals not measured. General Appearance: The patient was seated in a chair and oriented to person, place, and time. Head/Neck: Exam performed, findings not provided. Cardiac, Respiratory: Exam performed, findings not provided. Musculoskeletal: Left hip examination showed a mild fracture on the surgical dressing; intact sciatic nerve function evidenced by plantar flexion and dorsiflexion. Neurological: The patient was oriented to person, place, and time. Psychiatric: The patient did not exhibit signs of striding or weaving. ASSESSMENT: The patient had a recent left femoral neck fracture which was treated with surgical intervention. The surgical site was healing well, and the dressing was intact. The patient was making slow progress with rehabilitation, indicating the need for further physical therapy and support. The patient had a urinary tract infection for which she was receiving antibiotic treatment with levofloxacin. Antibiotic coverage was continued to address this ongoing issue. The patient had multiple chronic comorbidities including COPD, chronic kidney disease, and mild aortic stenosis. These conditions required ongoing management and monitoring, especially in light of her recent surgery and recovery process. PLAN: Treatment: - Continued levofloxacin for urinary tract infection. - Continued nebulizer treatments for COPD. Tests: - None ordered today. Patient Education: - Discussed the importance of ambulating as much as she is capable of at the facility after DC. Follow-Up: - Follow-up in two weeks for staple removal. Disposition: - Planned transfer to a rehab facility after discharge for continued physical therapy and recovery support. Exam Vital Signs (past 8 hours): - 12/07/24 02:00 12/07/24 05:41 12/07/24 06:00 Temperature 97.5 F L Pulse Rate 88 Respiratory Rate 18 Blood Pressure 167/62 H Pulse Oximetry 94 92 94 Oxygen Delivery Method Nasal Cannula Nasal Cannula Oxygen Flow Rate 3 3 4 Fraction of Inspired Oxygen 12/07/24 07:05 12/07/24 08:00 Temperature Pulse Rate 96 H Respiratory Rate 16 Blood Pressure Pulse Oximetry 94 Oxygen Delivery Method Nasal Cannula Nasal Cannula Oxygen Flow Rate 4 Fraction of Inspired Oxygen 36 Fraction of Inspired Oxygen 36 SaO2/FiO2 Ratio 261 Oxygen Delivery Method Nasal Cannula Oxygen Flow Rate 4 Objective Labs 12/07/24 08:43 12/07/24 08:43 Labs: Laboratory Results - last 24 hr 12/07/24 08:43 WBC 5.8 D RBC 4.49 Hgb 12.8 Hct 38.9 MCV 86.6 MCH 28.4 MCHC 32.9 RDW 14.7 Plt Count 221 Neut % (Auto) 79.7 H Lymph % (Auto) 13.2 L [place] % (Auto) 6.4 Eos % (Auto) 0.3 L Baso % (Auto) 0.4 Neut # (Auto) 4600 Lymph # (Auto) 800 L [place] # (Auto) 400 Eos # (Auto) 0 Baso # (Auto) 0 Sodium 137 Potassium 4.9 D Chloride 97 L Carbon Dioxide 28 BUN 31 H Creatinine 1.55 H Estimated GFR 36 L BUN/Creatinine Ratio 20.0 Glucose 173 H Calcium 9.2 Total Bilirubin 0.8 AST 51 H ALT 25 Alkaline Phosphatase 46 Total Protein 7.4 Albumin 3.7 Globulin 3.7 Albumin/Globulin Ratio 1.0 PFSH Social History household members: spouse Smoking Status: Former smoker alcohol intake: never Assessment & Plan Post-op Postoperative Procedures: Procedures Operation Date: 12/02/24 12:00 <No data on this case meets the specified criteria> Operation Date: 12/03/24 17:00 Actual Procedure Side Surgeon p ORIF Hip/Cannulated Screws Left Jae Victor MD Quality VTE Deep Vein Thrombosis/Pulmonary Embolism Present on Admission: No
--- NOTE | 2024-12-07 10:45 | PT.IPTN ---
Current Diagnoses Fracture of unspecified part of neck of left femur, initial encounter for closed fracture (12/01/24) Surgery Performed Operation Date: 12/02/24 12:00 <No data on this case meets the specified criteria> Operation Date: 12/03/24 17:00 Actual Procedures p ORIF Hip/Cannulated Screws(Left) - Jae Victor MD Physical Therapy Treatment Note M2 PT-IP Current Condition Start: 12/04/24 11:33 Freq: NEEDED Status: Active Protocol: Document 12/04/24 11:21 DLM (Rec: 12/04/24 11:56 DLM [id number]) Physical Therapy Current Condition Current Condition Evaluation Date 12/04/24 Treatment Diagnosis left hip ORIF 12/03/24 Onset Date 12/01/24 M3 PT-IP Subjective Start: 12/04/24 11:33 Freq: NEEDED Status: Active Protocol: Document 12/07/24 10:22 KS (Rec: 12/07/24 11:43 KS [id number]) Subjective Physical Therapy Visit Type Type Treatment Note Visit Start Time 10:22 Visit Stop Time 10:45 Number of CARPET JACK Visits 1 Physical Therapy Visit Comments Patient Comments Pt agreeable to work w/ PT. Still appearing very lethargic . M4 PT-IP Mobility and Gait Start: 12/04/24 11:33 Freq: NEEDED Status: Active Protocol: Document 12/07/24 10:22 KS (Rec: 12/07/24 11:43 KS [id number]) PT-Bed Mobility Assessment Supine to Sit Supine to Sit Moderate Assistance,1 Person Assistance,Head of Bed Elevated,Bedrails Sit to Supine Sit to Supine Moderate Assistance,1 Person Assistance Scooting Scooting to Edge of Bed Minimal Assistance PT-Transfer Assessment Sit to and From Stand Sit to and from Stand Minimal Assistance,1 Person Assistance,Use of Upper Extremities Equipment Transfer Assistive Device Gait Belt,Front Wheeled Walker Transfers Transfer Destination Bed Transfer Technique lateral steps Transfer Ability Level of Assist Minimal Assistance,1 Person Assistance,Use of Upper Extremities Comments Mobility Comments Pt in bed upon arrival, fatigued but agreeable to participate in PT. Pt able to complete LE exercises in bed but dozed off during. Mod A for sup<>sit, Min A for scooting EOB. Pt feels off while sitting EOB, BP stable. Able to maintain seated balance, then sit<>stand w// FWW Min A and able to take 3 lateral steps towards HOB Min A. Pt then states i dont think I can do this and sits back down. Mod A for sit<>sup for LE elevation and repositioning. Pt left w/ SCDS on and all needs in reach. Gait Assessment Gait Gait Assistance Required: Minimum Assistance,1 Person Assist Distance (Feet) 3 Assistive Devices Assistive Device Gait Belt,Front Wheeled Walker Gait Deviations General Gait Pattern Antalgic,Decreased Stride Length,Step-to Gait Factors Limiting Gait Function Factors Limiting Gait Function Decreased Activity Tolerance, Decreased Sensation,Decreased Strength,Limited Range of Motion,Pain,Poor Balance Comments Gait Comments could only tolerate 3 lateral steps towards HOB. Stair Climbing Assessment Comments Stair Climbing Comments unable this visit PT-Balance Assessment Sitting Balance and Reactions Static Sitting Balance Ability Normal Dynamic Sitting Balance Ability Good Standing Balance and Reactions Static Standing Balance Ability Fair Dynamic Standing Balance Ability Fair Device Used FWW M5 PT-IP Objective Assessments Start: 12/04/24 11:33 Freq: NEEDED Status: Active Protocol: Document 12/06/24 11:11 DLM (Rec: 12/06/24 11:33 DL [id number]) Orientation Orientation/Cognition Level of Alertness Lethargic Comments no verbalizations today, lethargic appears to have pain in left LE with movement of her hip but she can not rate nor describe it, was managed with gradual progression of assisted movements Muscle Tone Muscle Tone WNL Yes M6 PT-IP Treatment Start: 12/04/24 11:33 Freq: NEEDED Status: Active Protocol: Document 12/07/24 10:22 KS (Rec: 12/07/24 11:43 MN [id number]) Physical Therapy Treatment Exercises Exercises Ankle Pumps,Gluteal Sets,Quad Sets,Heel Slides Education Education Provided Safety Other Treatments Other Treatment Performed assisted pt with bilateral LE exercise in supine M7 PT-IP Assessment and Plan Start: 12/04/24 11:33 Freq: NEEDED Status: Active Protocol: Document 12/07/24 10:22 KS (Rec: 12/07/24 11:43 MN [id number]) PT Summary Assessment and Plan Potential Rehabilitation Potential Fair Summary Impairments Pain,ROM,Strength,Balance, Sensation,Bed Mobility, Transfers,Gait,Activity Tolerance Progress Towards Goals Slow Progress due to Activity Tolerance Assessment Summary Pt making slow progress however still very fatigued and dozed off twice during treatment. Able to complete minimal LE exercises in bed and 1x sit<>stand w/ FWW followed by 3 lateral steps towards HOB but became too fatigued for further treatment . Mod A for bed mobility and Min A for transfer. Pt will require SNf to improve functional mobility independence. Goals Bed Mobility Goal Independent Transfer Goal Independent Gait Goal Standby Assistance,Front Wheel Walker Gait Distance 150 feet Other Goals up/down one step with fWW and SBA. Days to Meet Goals 7 Frequency of Treatment Frequency Of Treatment Twice a Day Treatment Plan Physical Therapy Treatment Plan Bed Mobility Training,Transfer Training,Gait Training, Therapeutic Exercise,Balance Retraining,Post Op Education, Discharge Planning,Hot or Cold Pack,Neuromuscular Re-ed Precautions Other Precautions fall risk left femur fx s/p ORIF 12/03/24 New contact precautions ordered. Weight Bearing Status Weight Bearing Status Weight Bear as Tolerated Allowed Weight Bearing Amount (enter % left LE with FWW or #) (%) Recommendations To Nursing Amount of Assist Needed 1 Person Assist Discharge Recommendations PT Discharge Recommendations SNF Rehab Equipment Needed for Home Before FWW if she goes home Discharge Transportation Needs at Discharge Wheelchair/Cabulance - PT assist 1P
[2024-12-07] MEDS: levoFLOXacin 250 MG TABLET PO (13:00)
--- NOTE | 2024-12-07 13:20 | PT-IP ANOTE ---
Attempted to see patient but she was not really responding to my questions, would look at me, but not responding verbally. Talked with nursing and decided to allow patient to rest for right now since she had a difficult morning and may need some time to rest, will check back tomorrow AM.
[2024-12-07] MEDS: HYDROMORPHONE 0.5 MG INJ IV ×2 (16:38→20:26)
--- NOTE | 2024-12-07 18:12 | PC.NURSE ---
Addendum entered by Lisa Mantilla R.N. 12/07/24 19:15: Per елена Sarabia for oxygenation to be 88%-92%. Original Note: Pt A&Ox3-4 at beginning of shift. Able to ambulate to the BR w/ 1PA FWW. In chair for breakfast. At lunch, pt declines food, states, I don't feel like eating. 2L NC 90%-94%. C/o of hip and back pain. Pain treated as ordered (See MAR.) Visitors at bedside. Pt continues to complain of pain, clenching and shaking fists. Visitors concerned about pt oxygenation and cough. Visitors educated on oxygenation. Pain treated as ordered (See MAR). This RN noticed O2 had been raised to 5L NC. Pt only A&O to name, makes meaningful eye contact but does not respond to questions. O2 lowered to 0.5L NC, oxygen 92%. Provider notified and at bedside. New orders received. Care ongoing.
--- NOTE | 2024-12-07 18:39 | DI.RAD.S_ITS ---
PROCEDURE: XR CHEST 1V INDICATIONS: Cough TECHNIQUE: One view of the chest was acquired. COMPARISON: [facility], CR, XR CHEST 1V, 12/06/2024, 2:36. FINDINGS: Surgical changes and devices: None. Lungs and pleura: Mixed interstitial and alveolar opacities bilaterally most prominent in the retrocardiac and left axillary region. Findings superimposed hyperlucent upper lobes. Trace left pleural effusion. No pneumothorax. Mediastinum: Mediastinal contours appear normal. Heart size is normal. Bones and chest wall: No suspicious bony lesions. Overlying soft tissues appear unremarkable. IMPRESSION: Probably due to technique, bibasilar mixed interstitial and alveolar opacities are more prominent, but are most dense in the left lower lung or small effusion is stable. Findings superimposed on emphysema. Dictated by: Yanni Swartz M.D. on 12/07/2024 at 19:12 Approved by: Yanni Swartz M.D. on 12/07/2024 at 19:14
[2024-12-07 18:40] LABS: Base Excess ABG 8.9 mmol/L (-2-3); Blood Gas Collection Site Right Brachial; Delivery System Cannula; HCO3 ABG 31 mmol/L (23-27); Oxygen Saturation ABG 91 % (95-100); PCO2 ABG 32.4 mmHg (35-45); PO2 ABG 51 mmHg (80-100); TCO2 ABG 30 mmol/L (23-27); pH ABG 7.59 (7.35-7.45)
[2024-12-07] MEDS: CEFEPIME 2 GM in SODIUM CHLORIDE 0.9% 100 ML IV (19:19)
[2024-12-07 19:21] LABS: Hematocrit 34.2 % (36-46); Hemoglobin 11.3 g/dL (12.0-16.0); Mean Corpuscular HGB Conc 33.1 % (30-36); Mean Corpuscular Hemoglobin 28.3 PG (26-34); Mean Corpuscular Volume 85.4 fL (80-100); Platelet Count 223 X10^3/uL (150-400); Red Cell Distribution Width 14.5 % (11.6-14.8); White Blood Cell Count 4.7 X10^3/uL (4.5-11.0)
[2024-12-07 19:30] LABS: Alanine Aminotransferase 20 IU/L (<35); Albumin 3.2 g/dL (3.5-5.0); Alkaline Phosphatase 49 U/L (38-126); Aspartate Aminotransferase 41 IU/L (14-36); BUN Creatinine Ratio 18.8 (6-22); Bilirubin Total 0.7 mg/dL (0.2-1.3); Blood Urea Nitrogen 31 mg/dL (7-17); Calcium 8.5 mg/dL (8.4-10.2); Carbon Dioxide 28 mmol/L (22-32); Chloride 96 mmol/L (98-107); Estimated Glomerular Filt Rate 34 mL/min (>60); Globulin 3.3 g/dL (1.7-4.1); Glucose 135 mg/dL (80-110); HEMOLYSIS < 15 (0-50); Potassium 4.2 mmol/L (3.4-5.1); Sodium 131 mmol/L (137-145); Total Protein 6.5 g/dL (6.3-8.2)
[2024-12-07 19:31] LABS: Lactate (Lactic Acid) 1.3 mmol/L (0.7-2.1)
--- NOTE | 2024-12-07 19:59 | RT ---
Pt noted with SpO2 desaturation while on 3.5L NC. Pt was initially switched to oxymask at same setting and was repositioned with HOB>45 degrees. No improvement noted and was placed back on standard NC. Liter flow on NC was increased to 6LPM without meaningful improvement in saturation. Pt's saturation was 85-87%. Noting bilateral breath sounds, no wheezing. Pt A&Ox2. Order received for Heated High Flow O2 and pt placed on HHFNC at 2013.
--- NOTE | 2024-12-07 22:23 | PC.NURSE ---
fast food shift supervisor Assessment at start of shift: Patient is alert although is withdrawn and does not answer all questions, will state name & that she is in a hospital. Appears overwhelmed when asked if she is in pain. Patient is tachypneic & has increased work of breathing, SpO2 86% on 5L NC. HR is tachycardic in 110s. Called RT, patient placed on heated hi-flow with O2 goal between 88-92%. Cont tele placed. IV abx infused, PO tylenol given. Temp currently 98.5, HR in 90s. Patient no longer appears to be in distress and is more responsive to questions. Notified MD Busby of patient assessment; order to continue heated hi-flow for now & monitor.
[2024-12-08] VITALS (21 sets, daily range): BP systolic 108–164; BP diastolic 43–67; PULSE 74–93; RESP 16–28; TEMP 36–36.6; O2SAT 89–97
[2024-12-08] MEDS: ACETAMINOPHEN 325 MG TABLET 650 MG PO ×4 (00:05→23:42)
[2024-12-08] MEDS: HYDROMORPHONE 0.5 MG INJ IV (02:30)
[2024-12-08] MEDS: CEFEPIME 2 GM in SODIUM CHLORIDE 0.9% 100 ML IV ×2 (05:52→17:59)
[2024-12-08] MEDS: ALBUTEROL/IPRATROPIUM 3 ML AMPUL INH ×5 (06:06→22:36)
[2024-12-08 06:16] LABS: Add Manual Diff / Slide Review NO; Basophils Absolute Auto 0 /uL (0-100); Basophils Percent Auto 0.3 % (0-2); Eosinophils Absolute Auto 0 /uL (0-450); Eosinophils Percent Auto 0.3 % (2-4); Hematocrit 33.1 % (36-46); Lymphocytes Absolute Auto 800 /uL (1100-4500); Lymphocytes Percent Auto 22.5 % (25-40); Mean Corpuscular HGB Conc 33.2 % (30-36); Mean Corpuscular Hemoglobin 28.5 PG (26-34); Mean Corpuscular Volume 85.7 fL (80-100); Monocytes Absolute Auto 600 /uL (0-900); Monocytes Percent Auto 15.4 % (3-14); Neutrophils Absolute Auto 2300 /uL (1500-7000); Neutrophils Percent Auto 61.5 % (50-75); Platelet Count 209 X10^3/uL (150-400); Red Blood Cell Count 3.86 X10^6/uL (4.0-5.2); Red Cell Distribution Width 14.5 % (11.6-14.8); White Blood Cell Count 3.7 X10^3/uL (4.5-11.0)
[2024-12-08 07:04] LABS: BUN Creatinine Ratio 22.4 (6-22); Blood Urea Nitrogen 35 mg/dL (7-17); Calcium 8.4 mg/dL (8.4-10.2); Carbon Dioxide 25 mmol/L (22-32); Chloride 97 mmol/L (98-107); Estimated Glomerular Filt Rate 36 mL/min (>60); Glucose 109 mg/dL (80-110); HEMOLYSIS < 15 (0-50); Potassium 4.2 mmol/L (3.4-5.1); Sodium 133 mmol/L (137-145)
--- NOTE | 2024-12-08 07:31 | PM.PN.1 ---
Subjective Subjective Interval history: S: She was more alert and oriented on high-flow. She was comfortable but does have right hip pain. She was able to stay who she was and where she is at. History of present illness: he patient is a 69-year-old female who presented with a femoral neck fracture. The fracture occurred after the patient fell while getting up to go to the bathroom. This incident happened yesterday. The patient reported losing her balance and fell, resulting in the injury to her left hip. She has not reported pain in any other areas. Her medical history is significant for chronic kidney disease, severe chronic obstructive pulmonary disease (COPD), and a history of multiple strokes. Given these conditions, a decision was made to perform a smaller surgical procedure involving the placement of three screws to minimize blood loss and postoperative complications. Hospital course: 12/02: Hypotensive episode during induction of anesthesia patient brought back up to the floor Echocardiogram was ordered demonstrated normal ejection fraction and no aortic stenosis 12/03: No events overnight Prepared for fixation screws per Orthopedic surgery 12/04: No complications postoperatively for ORIF slept well overnight Was able to stand and pivot and transfer from bed to chair Discussed recovery. And patient agreed that she needs inpatient rehab and is amenable 12/07: She developed confusion and a fever as well as a productive cough. She then developed hypoxemia. She was started on IV cefepime with blood cultures pending. Chest x-ray was obtained and she required high-flow overnight. 12/08: HFO2, more oriented. Exam Vital Signs (past 8 hours): - 12/07/24 23:39 12/08/24 01:04 12/08/24 02:00 Temperature Pulse Rate 92 H 85 Respiratory Rate 22 28 H Blood Pressure Pulse Oximetry 92 89 L 90 L Oxygen Delivery Method Heated High Flow Oxygen Flow Rate 50 Fraction of Inspired Oxygen 12/08/24 02:38 12/08/24 03:27 12/08/24 05:07 Temperature 97.8 F 97.5 F L Pulse Rate 84 81 82 Respiratory Rate 16 24 21 Blood Pressure 136/46 L 158/57 H Pulse Oximetry 89 L 92 97 Oxygen Delivery Method Oxygen Flow Rate 50 50 Fraction of Inspired Oxygen 45 45 12/08/24 05:22 12/08/24 06:00 12/08/24 06:06 Temperature Pulse Rate 82 Respiratory Rate 24 Blood Pressure Pulse Oximetry 93 91 92 Oxygen Delivery Method Heated High Flow Oxygen Flow Rate 45 45 Fraction of Inspired Oxygen 44 12/08/24 06:06 Temperature Pulse Rate 82 Respiratory Rate 24 Blood Pressure Pulse Oximetry 92 Oxygen Delivery Method Heated High Flow Oxygen Flow Rate Fraction of Inspired Oxygen Fraction of Inspired Oxygen 44 SaO2/FiO2 Ratio 252 Oxygen Delivery Method Heated High Flow Oxygen Flow Rate 45 Narrative Exam Narrative: NAD, alert and oriented to person and place. Fluent speech. On HFO2. Lungs are clear, normal rate and effort. Heart is regular, no murmur gallop or rub. Abdomen is soft, non distended. Extremities are free of edema. Objective Imaging Multiple studies:: Radiologist's impression: New CXR 12/07: Probably due to technique, bibasilar mixed interstitial and alveolar opacities are more prominent, but are most dense in the left lower lung or small effusion is stable. Findings superimposed on emphysema. Chest x-ray: Radiologist's impression: 1. Small left pleural effusion with left basilar consolidation; consider pneumonia. 2. Background of emphysema. 12/06 Echo: Radiologist's impression: The ejection fraction is estimated to be 60-65%. Diastolic function could not be accurately assessed due to confounding valvular disease. The right ventricle is normal in size and function. There is mild mitral stenosis. Pulmonary artery pressures cannot be estimated because of the lack of a measurable TR jet velocity but the IVC suggests a CVP of around 8 mmHg. Labs 12/08/24 05:55 12/08/24 05:55 Labs: Laboratory Results - last 24 hr 12/07/24 12/07/24 12/07/24 08:43 18:32 19:00 WBC 5.8 D 4.7 RBC 4.49 4.00 Hgb 12.8 11.3 L Hct 38.9 34.2 L MCV 86.6 85.4 MCH 28.4 28.3 MCHC 32.9 33.1 RDW 14.7 14.5 Plt Count 221 223 Neut % (Auto) 79.7 H Lymph % (Auto) 13.2 L [place] % (Auto) 6.4 Eos % (Auto) 0.3 L Baso % (Auto) 0.4 Neut # (Auto) 4600 Lymph # (Auto) 800 L [place] # (Auto) 400 Eos # (Auto) 0 Baso # (Auto) 0 ABG Sample Site Right brachial ABG pH 7.59 H ABG pCO2 32.4 L ABG pO2 51 L ABG HCO3 31 H ABG Total CO2 30 H ABG O2 Saturation 91 L ABG Base Excess 8.9 H Gilberto Test N/a O2 Delivery Device Cannula FiO2 % 32.0 % Sodium 137 131 L Potassium 4.9 D 4.2 Chloride 97 L 96 L Carbon Dioxide 28 28 BUN 31 H 31 H Creatinine 1.55 H 1.65 H Estimated GFR 36 L 34 L BUN/Creatinine Ratio 20.0 18.8 Glucose 173 H 135 H Lactate 1.3 Calcium 9.2 8.5 Total Bilirubin 0.8 0.7 AST 51 H 41 H ALT 25 20 Alkaline Phosphatase 46 49 Total Protein 7.4 6.5 Albumin 3.7 3.2 L Globulin 3.7 3.3 Albumin/Globulin Ratio 1.0 1.0 12/08/24 05:55 WBC 3.7 L RBC 3.86 L Hgb 11.0 L Hct 33.1 L MCV 85.7 MCH 28.5 MCHC 33.2 RDW 14.5 Plt Count 209 Neut % (Auto) 61.5 Lymph % (Auto) 22.5 L [place] % (Auto) 15.4 H Eos % (Auto) 0.3 L Baso % (Auto) 0.3 Neut # (Auto) 2300 Lymph # (Auto) 800 L [place] # (Auto) 600 Eos # (Auto) 0 Baso # (Auto) 0 ABG Sample Site ABG pH ABG pCO2 ABG pO2 ABG HCO3 ABG Total CO2 ABG O2 Saturation ABG Base Excess Gilberto Test O2 Delivery Device FiO2 % Sodium 133 L Potassium 4.2 Chloride 97 L Carbon Dioxide 25 BUN 35 H Creatinine 1.56 H Estimated GFR 36 L BUN/Creatinine Ratio 22.4 H Glucose 109 Lactate Calcium 8.4 Total Bilirubin AST ALT Alkaline Phosphatase Total Protein Albumin Globulin Albumin/Globulin Ratio [facility] Social History household members: spouse Smoking Status: Former smoker alcohol intake: never Assessment & Plan Assessment & Plan narrative: 1. Nondisplaced closed Left femoral neck fracture secondary to ground level fall (S/) ORIF): 2. CKD Stage 3. 3. Severe COPD: Stable without exacerbation 4. Unintentional weight loss 20-40 lb in September and October -is established with charge rn to determine the etiology 5. Fever, encephalopathy, sepsis syndrome due to UTI and pneumonia -active. 6. MDR E.coli UTI -treat with IV Levofloxacin 7. Hospital-acquired pneumonia -treat with IV Levofloxacin -follow cultures -aspiration unlikely 8. Acute hypoxic respiratory failure, new as of December 07. 9. Acute septic encephalopathy, new as of December 07. Improving. PLAN: -continue antibiotics (Cefepime) -monitor repeat blood cultures. -Wean O2 as able. DVT prophylaxis: ASA BID. Full code JOSÉ MIGUEL: Possibly 12/10 to SNF on oral antibiotics and possibly oxygen Time-Based Coding :: [TOTAL MINUTES] spent with patient and on the chart (including review of chart, obtaining history, exam, reviewing outside data, placing orders, documenting exam and treatment plan, and counseling patient) on [DATE]. Quality VTE Deep Vein Thrombosis/Pulmonary Embolism Present on Admission: No
[2024-12-08] MEDS: DOCUSATE 100 MG CAPSULE PO ×2 (08:37→21:13)
[2024-12-08] MEDS: OXYCODONE IR 5 MG TABLET PO ×4 (08:37→21:14)
[2024-12-08] MEDS: polyethylene glycoL 3350 17 GM POWD.PACK PO (08:37)
[2024-12-08] MEDS: ASPIRIN EC 81 MG TABLET PO ×2 (08:37→21:13)
[2024-12-08] MEDS: CLOPIDOGREL 75 MG TABLET PO (08:37)
--- NOTE | 2024-12-08 10:57 | CM.DPC ---
DCP SNF Cont: Per , pt with increased difficulty with respirations yesterday Sun evening and was placed on high flow oxygen and not stable for d/c to SNF yet today and likely another couple days to wean back to [place] O2. SW updated Dennise admissions at [facility] and they will continue to hold a bed for when she is stable for discharge to SNF. [place] auth had been obtained for SNF initially on 12/05/24 and will need to resubmit clinicals for SNF auth to [place] closer to discharge. [place] had provided one time auth to [facility] as this is the only SNF on [facility] unable to accept and [facility] is pt's preference. KENNY Garcia
[2024-12-08] MEDS: FUROSEMIDE 20 MG/2 ML VIAL IV (11:37)
--- NOTE | 2024-12-08 11:39 | PT.IPTN ---
Current Diagnoses Fracture of unspecified part of neck of left femur, initial encounter for closed fracture (12/01/24) Surgery Performed Operation Date: 12/02/24 12:00 <No data on this case meets the specified criteria> Operation Date: 12/03/24 17:00 Actual Procedures p ORIF Hip/Cannulated Screws(Left) - Jae Victor MD Physical Therapy Treatment Note M2 PT-IP Current Condition Start: 12/04/24 11:33 Freq: NEEDED Status: Active Protocol: Document 12/04/24 11:21 DLM (Rec: 12/04/24 11:56 DLM [id number]) Physical Therapy Current Condition Current Condition Evaluation Date 12/04/24 Treatment Diagnosis left hip ORIF 12/03/24 Onset Date 12/01/24 M3 PT-IP Subjective Start: 12/04/24 11:33 Freq: NEEDED Status: Active Protocol: Document 12/08/24 10:54 MB (Rec: 12/08/24 11:36 MB [id number]) Subjective Physical Therapy Visit Type Type Treatment Note Visit Start Time 10:54 Visit Stop Time 11:24 Number of RUG TOUCH UP PAINTER Visits 0 Physical Therapy Visit Comments Patient Comments Pt snoozing upon arrival, awakened to PT voice and is agreeable to PT. Therapy Pain Assessment Pain When Pain Assessed At Rest Pain Present Pain Present Pain Reported Location Everywhere Intensity 6 M4 PT-IP Mobility and Gait Start: 12/04/24 11:33 Freq: NEEDED Status: Active Protocol: Document 12/08/24 10:54 MB (Rec: 12/08/24 11:36 MB [id number]) PT-Bed Mobility Assessment Rolling Type of Rolling Roll to Right Level of Assist Contact Guard Assistance,1 Person Assistance Supine to Sit Supine to Sit Contact Guard Assistance,1 Person Assistance,Head of Bed Elevated,Bedrails Sit to Supine Sit to Supine Contact Guard Assistance,1 Person Assistance,Bedrails Scooting Scooting to Edge of Bed Contact Guard Assistance PT-Transfer Assessment Sit to and From Stand Sit to and from Stand Minimal Assistance,1 Person Assistance,Use of Upper Extremities Equipment Transfer Assistive Device Gait Belt,Front Wheeled Walker Transfers Transfer Destination Bed Transfer Technique Lateral stepping Transfer Ability Level of Assist Minimal Assistance,1 Person Assistance,Use of Upper Extremities Comments Mobility Comments Increased time and cues for scooting to right side of bed, heavy use of HOB rail with HOB increased, heated O2 to the right as well as other line and so moved to the right today. O2 sats are 85-90% on O2 at rest and with mobility and HR 80-104 BPM with increasing HR once up to standing. Very slow movement, PT blocks feet before standing to help feet not scoot out, cues to push up from the bed and not from the walker. Gait Assessment Gait Gait Assistance Required: Contact Guard Assist,1 Person Assist Distance (Feet) 3 Assistive Devices Assistive Device Gait Belt,Front Wheeled Walker Gait Deviations General Gait Pattern Antalgic,Decreased Stride Length,Step-to Gait Factors Limiting Gait Function Factors Limiting Gait Function Decreased Activity Tolerance, Pain,Poor Balance PT-Balance Assessment Sitting Balance and Reactions Static Sitting Balance Ability Normal Dynamic Sitting Balance Ability Good Standing Balance and Reactions Static Standing Balance Ability Fair Dynamic Standing Balance Ability Fair Device Used RW M5 PT-IP Objective Assessments Start: 12/04/24 11:33 Freq: NEEDED Status: Active Protocol: Document 12/06/24 11:11 DLM (Rec: 12/06/24 11:33 DLM [id number]) Orientation Orientation/Cognition Level of Alertness Lethargic Comments no verbalizations today, lethargic appears to have pain in left LE with movement of her hip but she can not rate nor describe it, was managed with gradual progression of assisted movements Muscle Tone Muscle Tone WNL Yes M6 PT-IP Treatment Start: 12/04/24 11:33 Freq: NEEDED Status: Active Protocol: Document 12/08/24 10:54 MB (Rec: 12/08/24 11:36 MB [id number]) Physical Therapy Treatment Exercises Exercises Ankle Pumps,Gluteal Sets,Quad Sets,Heel Slides Other Treatments Other Treatment Performed Pt falling asleep during exercises and so stopped to get to EOB M7 PT-IP Assessment and Plan Start: 12/04/24 11:33 Freq: NEEDED Status: Active Protocol: Document 12/08/24 10:54 MB (Rec: 12/08/24 11:36 MB [id number]) PT Summary Assessment and Plan Potential Rehabilitation Potential Fair Status of Condition at Evaluation Unstable Summary Impairments Pain,ROM,Strength,Balance, Sensation,Bed Mobility, Transfers,Gait,Activity Tolerance Progress Towards Goals Slow Progress due to Activity Tolerance Assessment Summary Pt on heated high flow O2 and O2 sats fluctuate and are 85- 90% at rest and with mobility and HR increases, especially with standing. Pt does a good job moving her legs in the bed and she uses bed rails and requires cues, slower processing. Recommend SNF at d /c. Lethargic today. Goals Bed Mobility Goal Independent Transfer Goal Independent Gait Goal Standby Assistance,Front Wheel Walker Gait Distance 75 Other Goals up/down one step with fWW and SBA. Days to Meet Goals 7 Frequency of Treatment Frequency Of Treatment Once a Day Treatment Plan Physical Therapy Treatment Plan Bed Mobility Training,Transfer Training,Gait Training, Therapeutic Exercise,Balance Retraining,Post Op Education, Discharge Planning,Hot or Cold Pack,Neuromuscular Re-ed, Coordination Retraining,Manual Therapy Precautions Other Precautions Fall risk, heated high flow Weight Bearing Status Weight Bearing Status Weight Bear as Tolerated Allowed Weight Bearing Amount (enter % left LE with FWW or #) (%) Recommendations To Nursing Amount of Assist Needed 1 Person Assist Discharge Recommendations PT Discharge Recommendations SNF Rehab Transportation Needs at Discharge Private Vehicle,Wheelchair/ Cabulance - PT assist x1
--- NOTE | 2024-12-08 11:44 | DIET.PN1 ---
Dietary Progress Note Assessment: f/u Pt with poor PO intakes over the weekend. No longer tolerating ONS options, only wanting to drink iced tea. Pt reporting dry mouth. Pt is slow to respond and has limited responses. Discussed options to help with dry mouth and other caloric and protein dense drink options to support energy intake. Ordered half a smoothie for lunch. Informed RN of the above. Per hospitalist progress note: pt with acute septic encephalopathy that is improving and acute resp failure - both as of december 07. Ht: 162.56 cm Wt: 68.039 kg BMI: 25.7 Last BM: 12/07/24 (12/07/24 00:00) MNA: 7 Hao Score: 18 Diet: 12/04/24 Breakfast Carbohydrate Consistent Diet Diet Modifications: Carbohydrate level: Medium (3 CHO) Reflex DM orders: No Food Texture: Level 7 - Regular Liquid Consistency: Level 0 - Thin Nutrition Percent Meal Consumed 0% 12/08/24 08:00 Percent Meal Consumed 0% 12/07/24 18:00 Percent Meal Consumed 5 12/06/24 18:00 Percent Meal Consumed 5 12/06/24 12:00 Labs: RBC 3.86 X10^6/uL (4.0-5.2) L 12/08/24 05:55 Hgb 11.0 g/dL (12.0-16.0) L 12/08/24 05:55 Hct 33.1 % (36-46) L 12/08/24 05:55 Creatinine 1.56 mg/dL (0.52-1.04) H 12/08/24 05:55 Hemoglobin A1c 5.8 % (4.0-6.0) 12/01/24 14:00 Lactate 1.3 mmol/L (0.7-2.1) 12/07/24 19:00 Nutrition Diagnosis: Inadequate oral intake r/t decreased appetite aeb <25% of recorded PO intakes over weekend Interventions: -protein smoothie or milk trial with with meal EER: 1700 kcals (25 kcals/kg per BMI) 55 g protein (.8 g protein per kg per renal+DM+PCM) Monitoring/Evaluations: following po intakes closely Electronically Signed by: Marie Qureshi 12/08/24 11:44 [address] [address]
--- NOTE | 2024-12-08 12:04 | PM.PNPO.1 ---
Subjective Subjective Date Patient Seen: 12/08/24 Time Patient Seen: 12:04 Interval history: Rebecca is sitting up in bed receiving a breathing treatment. In review of hospitalist notes, it sounds like she has developed pneumonia. Hoping she is medically stable for tx to SNF on 12/10. She tells me she is 'unsure' about her pain control but appears to be comfortable. She feels like things are going well with PT. Exam Vital Signs (past 8 hours): - 12/08/24 05:07 12/08/24 05:22 12/08/24 06:00 Temperature 97.5 F L Pulse Rate 82 Respiratory Rate 21 Blood Pressure 158/57 H Pulse Oximetry 97 93 91 Oxygen Delivery Method Heated High Flow Oxygen Flow Rate 50 45 45 Fraction of Inspired Oxygen 45 44 12/08/24 06:06 12/08/24 06:06 12/08/24 07:00 Temperature Pulse Rate 82 82 Respiratory Rate 24 24 Blood Pressure Pulse Oximetry 92 92 Oxygen Delivery Method Heated High Flow Heated High Flow Oxygen Flow Rate Fraction of Inspired Oxygen 12/08/24 08:00 12/08/24 09:36 12/08/24 09:44 Temperature 97.5 F L Pulse Rate 88 88 85 Respiratory Rate 18 18 18 Blood Pressure 164/63 H Pulse Oximetry 94 95 93 Oxygen Delivery Method Heated High Flow Oxygen Flow Rate 50 50 Fraction of Inspired Oxygen 45 Fraction of Inspired Oxygen 45 SaO2/FiO2 Ratio 252 Oxygen Delivery Method Heated High Flow Oxygen Flow Rate 50 Narrative Exam Narrative: 5/5 strength in hip flexors, quadriceps, hamstrings, DF, Pf, EHL on left. Sensation to light touch intact throughout LLE, calf soft and compressible. SCDs in place and functioning. Aquacel dressing with minimal bloody drainage. Objective Labs 12/08/24 05:55 12/08/24 05:55 Labs: Laboratory Results - last 24 hr 12/07/24 12/07/24 12/08/24 18:32 19:00 05:55 WBC 4.7 3.7 L RBC 4.00 3.86 L Hgb 11.3 L 11.0 L Hct 34.2 L 33.1 L MCV 85.4 85.7 MCH 28.3 28.5 MCHC 33.1 33.2 RDW 14.5 14.5 Plt Count 223 209 Neut % (Auto) 61.5 Lymph % (Auto) 22.5 L [place] % (Auto) 15.4 H Eos % (Auto) 0.3 L Baso % (Auto) 0.3 Neut # (Auto) 2300 Lymph # (Auto) 800 L [place] # (Auto) 600 Eos # (Auto) 0 Baso # (Auto) 0 ABG Sample Site Right brachial ABG pH 7.59 H ABG pCO2 32.4 L ABG pO2 51 L ABG HCO3 31 H ABG Total CO2 30 H ABG O2 Saturation 91 L ABG Base Excess 8.9 H Gilberto Test N/a O2 Delivery Device Cannula FiO2 % 32.0 % Sodium 131 L 133 L Potassium 4.2 4.2 Chloride 96 L 97 L Carbon Dioxide 28 25 BUN 31 H 35 H Creatinine 1.65 H 1.56 H Estimated GFR 34 L 36 L BUN/Creatinine Ratio 18.8 22.4 H Glucose 135 H 109 Lactate 1.3 Calcium 8.5 8.4 Total Bilirubin 0.7 AST 41 H ALT 20 Alkaline Phosphatase 49 Total Protein 6.5 Albumin 3.2 L Globulin 3.3 Albumin/Globulin Ratio 1.0 PFSH Social History household members: spouse Smoking Status: Former smoker alcohol intake: never Assessment & Plan Post-op Assessment and plan (1) Femoral neck fracture: Assessment and Plan narrative: 1) WBAT to LLE. Walker at all times. 2) Currently receiving ASA 81mg BID and clopidogrel for VTE prophylaxis. Can probably d/c ASA. 3) F/u in office in about 10 days for wound check/staple removal. If travel from rehab is too cumbersome, liam can be removed at the rehab facility and pt can f/u w/ Dr Victor in 4-6 weeks for symptom check. 4) Disposition, pain management, medication management per hospitalist service. Postoperative Procedures: Procedures Operation Date: 12/02/24 12:00 <No data on this case meets the specified criteria> Operation Date: 12/03/24 17:00 Actual Procedure Side Surgeon p ORIF Hip/Cannulated Screws Left Jae Victor MD Postoperative day: 5 Quality VTE Deep Vein Thrombosis/Pulmonary Embolism Present on Admission: No
--- NOTE | 2024-12-08 13:53 | OT.IPNOTE ---
Attempted to see pt x2 today. Upon first attempt pt was on the phone. She later told this automobile and property underwriter that she was setting up a mortgage payment and it took her 45 minutes to do. Upon second attempt pt was sleeping in bed and declined activity at this time. She was easily arousable and appeared uncomfortable, repositioning her body multiple times, but declined getting EOB or to chair or ADLs in bed. Pt appears slightly confused about wanting to participate then spoke with conviction about setting up the mortgage payment earlier in the day. Pt may benefit from formal cog assessment.
[2024-12-08] MEDS: SENNOSIDES 8.6 MG TABLET 17.2 MG PO (21:13)
[2024-12-09] VITALS (17 sets, daily range): BP systolic 128–171; BP diastolic 47–63; PULSE 70–110; RESP 16–30; TEMP 36.2–37.4; O2SAT 88–93
[2024-12-09] MEDS: CEFEPIME 2 GM in SODIUM CHLORIDE 0.9% 100 ML IV ×2 (05:58→18:34)
[2024-12-09] MEDS: ACETAMINOPHEN 325 MG TABLET 650 MG PO ×3 (05:58→21:37)
[2024-12-09] MEDS: ALBUTEROL/IPRATROPIUM 3 ML AMPUL INH ×4 (07:13→19:11)
--- NOTE | 2024-12-09 07:35 | P.PN_ITS ---
Subjective Subjective Interval history: S: She was alert and oriented, denies dyspnea and does feel better. She denies any nausea. History of present illness: he patient is a 69-year-old female who presented with a femoral neck fracture. The fracture occurred after the patient fell while getting up to go to the bathroom. This incident happened yesterday. The patient reported losing her balance and fell, resulting in the injury to her left hip. She has not reported pain in any other areas. Her medical history is significant for chronic kidney disease, severe chronic obstructive pulmonary disease (COPD), and a history of multiple strokes. Given these conditions, a decision was made to perform a smaller surgical procedure involving the placement of three screws to minimize blood loss and postoperative complications. Hospital course: 12/02: Hypotensive episode during induction of anesthesia patient brought back up to the floor Echocardiogram was ordered demonstrated normal ejection fraction and no aortic stenosis 12/03: No events overnight Prepared for fixation screws per Orthopedic surgery 12/04: No complications postoperatively for ORIF slept well overnight Was able to stand and pivot and transfer from bed to chair Discussed recovery. And patient agreed that she needs inpatient rehab and is amenable 12/07: She developed confusion and a fever as well as a productive cough. She then developed hypoxemia. She was started on IV cefepime with blood cultures pending. Chest x-ray was obtained and she required high-flow overnight. 12/08: HFO2, more oriented. 12/09: 35%, 45 L/Min. No acute complaints, she appears clinically to be improving. Exam Vital Signs (past 8 hours): - 12/09/24 02:00 12/09/24 02:58 12/09/24 06:00 Temperature 97.1 F L Pulse Rate 70 Respiratory Rate 18 Blood Pressure 128/47 L Pulse Oximetry 92 90 L 91 Oxygen Delivery Method Heated High Flow Heated High Flow Oxygen Flow Rate 45 45 Fraction of Inspired Oxygen 12/09/24 07:16 12/09/24 07:16 Temperature Pulse Rate 82 Respiratory Rate 18 Blood Pressure Pulse Oximetry 92 92 Oxygen Delivery Method Heated High Flow Oxygen Flow Rate 45 Fraction of Inspired Oxygen 35 Fraction of Inspired Oxygen 35 SaO2/FiO2 Ratio 262 Oxygen Delivery Method Heated High Flow Oxygen Flow Rate 45 Narrative Exam Narrative: NAD, alert and oriented. Fluent speech. On high-flow oxygen. Frail, and chronically ill in appearance. Lungs are clear, normal rate and effort. Heart is regular, systolic murmur and no gallop or rub. Abdomen is soft, non distended. Extremities are free of edema. Objective Labs 12/08/24 05:55 12/08/24 05:55 [facility] Social History household members: spouse Smoking Status: Former smoker alcohol intake: never Assessment & Plan Assessment & Plan narrative: 1. Nondisplaced closed Left femoral neck fracture secondary to ground level fall (S/) ORIF), present on admission and active. 2. CKD Stage 3, present on admission and active. 3. Severe COPD, stable without exacerbation. 4. Unintentional weight loss 20-40 lb in September and , stable without exacerbation. 5. Fever, encephalopathy, sepsis syndrome due to UTI and pneumonia, stable without exacerbation. 6. MDR E.coli UTI, , stable without exacerbation. 7. Hospital-acquired pneumonia, stable without exacerbation. 8. Acute hypoxic respiratory failure, new as of December 07. Active. 9. Acute septic encephalopathy, new as of December 07. Improving. PLAN: -continue antibiotics (Cefepime, switched from Levofloxacin on 12/08) -monitor repeat blood cultures. -Wean O2 as able. -PT and OT. -SNF when improved. DVT prophylaxis: ASA BID. Full code Time-Based Coding :: [TOTAL MINUTES] spent with patient and on the chart (including review of chart, obtaining history, exam, reviewing outside data, placing orders, documenting exam and treatment plan, and counseling patient) on [DATE]. Quality VTE Deep Vein Thrombosis/Pulmonary Embolism Present on Admission: No
[2024-12-09] MEDS: ASPIRIN EC 81 MG TABLET PO ×2 (09:38→21:37)
[2024-12-09] MEDS: DOCUSATE 100 MG CAPSULE PO (09:38)
[2024-12-09] MEDS: polyethylene glycoL 3350 17 GM POWD.PACK PO (09:38)
[2024-12-09] MEDS: CLOPIDOGREL 75 MG TABLET PO (09:38)
--- NOTE | 2024-12-09 11:34 | PM.PNPO.1 ---
Subjective Subjective Date Patient Seen: 12/09/24 Time Patient Seen: 11:34 Interval history: Pt sitting up in bed, drowsy but arousable. Said she did not work w/ PT this morning; 'they think I'm a witch' because 'I don't want to do anything that is painful.' Exam Vital Signs (past 8 hours): - 12/09/24 06:00 12/09/24 07:16 12/09/24 07:16 Temperature Pulse Rate 82 Respiratory Rate 18 Blood Pressure Pulse Oximetry 91 92 92 Oxygen Delivery Method Heated High Flow Heated High Flow Oxygen Flow Rate 45 45 Fraction of Inspired Oxygen 35 12/09/24 08:00 12/09/24 09:45 12/09/24 09:58 Temperature 97.4 F L Pulse Rate 81 Respiratory Rate 20 Blood Pressure 138/56 L Pulse Oximetry 92 92 Oxygen Delivery Method Heated High Flow Heated High Flow Oxygen Flow Rate 45 Fraction of Inspired Oxygen Fraction of Inspired Oxygen 35 SaO2/FiO2 Ratio 262 Oxygen Delivery Method Heated High Flow Oxygen Flow Rate 45 Narrative Exam Narrative: 5/5 strength in hip flexors, quadriceps, hamstrings, PF, DF, EHL on left. Sensation to light touch intact throughout LLE, calf soft and compressible. Aquacel dressing w/ minimal bloody drainage. Objective Labs 12/08/24 05:55 12/08/24 05:55 PFSH Social History household members: spouse Smoking Status: Former smoker alcohol intake: never Assessment & Plan Post-op Assessment and plan (1) Femoral neck fracture: Assessment and Plan narrative: 1) WBAT to LLE. Walker at all times. 2) Currently receiving ASA 81mg BID and clopidogrel for VTE prophylaxis. Can probably d/c ASA. 3) F/u in office in about 9-10 days for wound check/staple removal. If travel from rehab is too cumbersome, liam can be removed at the rehab facility and pt can f/u w/ Dr Victor in 4-6 weeks for symptom check. 4) Disposition, pain management, medication management per hospitalist service. Postoperative Procedures: Procedures Operation Date: 12/02/24 12:00 <No data on this case meets the specified criteria> Operation Date: 12/03/24 17:00 Actual Procedure Side Surgeon p ORIF Hip/Cannulated Screws Left Jae Victor MD Postoperative day: 6 Quality VTE Deep Vein Thrombosis/Pulmonary Embolism Present on Admission: No
[2024-12-09 12:28] LABS: Hematocrit 35.7 % (36-46); Hemoglobin 11.7 g/dL (12.0-16.0); Mean Corpuscular HGB Conc 32.7 % (30-36); Mean Corpuscular Hemoglobin 28.6 PG (26-34); Mean Corpuscular Volume 87.3 fL (80-100); Platelet Count 243 X10^3/uL (150-400); Red Blood Cell Count 4.09 X10^6/uL (4.0-5.2); Red Cell Distribution Width 14.8 % (11.6-14.8); White Blood Cell Count 3.1 X10^3/uL (4.5-11.0)
[2024-12-09 12:44] LABS: BUN Creatinine Ratio 25.5 (6-22); Blood Urea Nitrogen 37 mg/dL (7-17); Calcium 8.9 mg/dL (8.4-10.2); Carbon Dioxide 23 mmol/L (22-32); Chloride 100 mmol/L (98-107); Estimated Glomerular Filt Rate 40 mL/min (>60); Glucose 105 mg/dL (80-110); HEMOLYSIS 21 (0-50); Magnesium 1.9 mg/dL (1.6-2.3); Potassium 4.5 mmol/L (3.4-5.1); Sodium 135 mmol/L (137-145)
--- NOTE | 2024-12-09 13:25 | PT.IPTN ---
Current Diagnoses Fracture of unspecified part of neck of left femur, initial encounter for closed fracture (12/01/24) Fracture of unspecified part of neck of unspecified femur, initial encounter for closed fracture (12/01/24) Surgery Performed Operation Date: 12/02/24 12:00 <No data on this case meets the specified criteria> Operation Date: 12/03/24 17:00 Actual Procedures p ORIF Hip/Cannulated Screws(Left) - Jae Victor MD Physical Therapy Treatment Note M2 PT-IP Current Condition Start: 12/04/24 11:33 Freq: NEEDED Status: Active Protocol: Document 12/04/24 11:21 DLM (Rec: 12/04/24 11:56 DLM [id number]) Physical Therapy Current Condition Current Condition Evaluation Date 12/04/24 Treatment Diagnosis left hip ORIF 12/03/24 Onset Date 12/01/24 M3 PT-IP Subjective Start: 12/04/24 11:33 Freq: NEEDED Status: Active Protocol: Document 12/09/24 13:08 KS (Rec: 12/09/24 13:50 KS [id number]) Subjective Physical Therapy Visit Type Type Treatment Note Visit Start Time 13:08 Visit Stop Time 13:25 Number of SCALLOP BINDER Visits 1 Physical Therapy Visit Comments Patient Comments Pt agreeable to PT. Therapy Pain Assessment Pain When Pain Assessed During Mobility Pain Present Pain Present Pain Reported Location left hip Scale Used not quantified Pain Behaviors Facial Grimacing,Guarding, Holding Area,Wincing M4 PT-IP Mobility and Gait Start: 12/04/24 11:33 Freq: NEEDED Status: Active Protocol: Document 12/09/24 13:08 KS (Rec: 12/09/24 13:50 KS [id number]) PT-Bed Mobility Assessment Supine to Sit Supine to Sit Moderate Assistance,1 Person Assistance,Head of Bed Elevated Sit to Supine Sit to Supine Minimal Assistance,1 Person Assistance,Head of Bed Elevated Scooting Scooting to Edge of Bed Contact Guard Assistance PT-Transfer Assessment Sit to and From Stand Sit to and from Stand Minimal Assistance,1 Person Assistance,Use of Upper Extremities Equipment Transfer Assistive Device Gait Belt,Front Wheeled Walker Transfers Transfer Destination Bed Transfer Technique Lateral stepping Transfer Ability Level of Assist Minimal Assistance,1 Person Assistance,Use of Upper Extremities Comments Mobility Comments Pt in bed upon arrival on heated high flow O2, expresses fatigue but agreeable to participate. Completed 1x10 bilat ankle pumps, glute sets, unable to tolerate heel slides or quad sets on LLE. Mod A for sup<>sit, CGA for scooting EOB. Pt able to stand w/ FWW min A. O2 mid 80s to low 90s throughout treatment. Pt then did short bout of marching in place and took 6 lateral steps towards HOB and requested ot lay back down due to fatigue. Min A for sit<> sup and repositioning in bed. Gait Assessment Gait Gait Assistance Required: Contact Guard Assist,1 Person Assist Distance (Feet) 4 Assistive Devices Assistive Device Gait Belt,Front Wheeled Walker Gait Deviations General Gait Pattern Antalgic,Decreased Stride Length,Step-to Gait Factors Limiting Gait Function Factors Limiting Gait Function Decreased Activity Tolerance, Pain,Poor Balance Stair Climbing Assessment Comments Stair Climbing Comments unable this visit PT-Balance Assessment Sitting Balance and Reactions Static Sitting Balance Ability Normal Dynamic Sitting Balance Ability Good Standing Balance and Reactions Static Standing Balance Ability Fair Dynamic Standing Balance Ability Fair Device Used RW M5 PT-IP Objective Assessments Start: 12/04/24 11:33 Freq: NEEDED Status: Active Protocol: Document 12/06/24 11:11 DLM (Rec: 12/06/24 11:33 DLM [id number]) Orientation Orientation/Cognition Level of Alertness Lethargic Comments no verbalizations today, lethargic appears to have pain in left LE with movement of her hip but she can not rate nor describe it, was managed with gradual progression of assisted movements Muscle Tone Muscle Tone WNL Yes M6 PT-IP Treatment Start: 12/04/24 11:33 Freq: NEEDED Status: Active Protocol: Document 12/09/24 13:08 KS (Rec: 12/09/24 13:50 KS [id number]) Physical Therapy Treatment Exercises Exercises Ankle Pumps,Gluteal Sets,Quad Sets,Heel Slides M7 PT-IP Assessment and Plan Start: 12/04/24 11:33 Freq: NEEDED Status: Active Protocol: Document 12/09/24 13:08 KS (Rec: 12/09/24 13:50 KS [id number]) PT Summary Assessment and Plan Potential Rehabilitation Potential Fair Summary Impairments Pain,ROM,Strength,Balance, Sensation,Bed Mobility, Transfers,Gait,Activity Tolerance Progress Towards Goals Slow Progress due to Activity Tolerance Assessment Summary Pt limited by medical issues and low activity tolerance as well as pain in LLE. Able to tolerate minimal ther ex, sitting EOB, marching in place , and lateral steps towards HOB but became very fatigued and requested to be done. Pt will require SNF at d/c. Goals Bed Mobility Goal Independent Transfer Goal Independent Gait Goal Standby Assistance,Front Wheel Walker Gait Distance 75 Other Goals up/down one step with fWW and SBA. Days to Meet Goals 7 Frequency of Treatment Frequency Of Treatment Once a Day Treatment Plan Physical Therapy Treatment Plan Bed Mobility Training,Transfer Training,Gait Training, Therapeutic Exercise,Balance Retraining,Post Op Education, Discharge Planning,Hot or Cold Pack,Neuromuscular Re-ed, Coordination Retraining,Manual Therapy Precautions Other Precautions Fall risk, heated high flow Weight Bearing Status Weight Bearing Status Weight Bear as Tolerated Allowed Weight Bearing Amount (enter % left LE with FWW or #) (%) Recommendations To Nursing Amount of Assist Needed 1 Person Assist Discharge Recommendations PT Discharge Recommendations SNF Rehab Transportation Needs at Discharge Private Vehicle,Wheelchair/ Cabulance - PT assist x1
--- NOTE | 2024-12-09 14:00 | OT.IP.TRT ---
Current Diagnoses Fracture of unspecified part of neck of left femur, initial encounter for closed fracture (12/01/24) Fracture of unspecified part of neck of unspecified femur, initial encounter for closed fracture (12/01/24) Surgery Performed Operation Date: 12/02/24 12:00 <No data on this case meets the specified criteria> Operation Date: 12/03/24 17:00 Actual Procedures p ORIF Hip/Cannulated Screws(Left) - Jae Victor MD Occupational Therapy Treatment Note M2 OT-IP Current Condition Start: 12/04/24 14:20 Freq: Status: Active Protocol: Document 12/04/24 14:21 [facility] (Rec: 12/04/24 14:35 [facility] [id number]) Occupational Therapy Current Condition Current Condition Evaluation Date 12/04/24 Treatment Diagnosis S/P L ORIF Diagnosis Onset Date 12/01/24 M3 OT- IP Subjective and Pain Start: 12/04/24 14:20 Freq: Status: Active Protocol: Document 12/09/24 14:26 [facility] (Rec: 12/09/24 14:32 [facility] [id number]) OT- Subjective Occupational Therapy Visit Type Type Treatment Note Visit Start Time 14:00 Visit Stop Time 14:24 Occupational Therapy Visit Comments Patient Comments Pt too tired to get up but agreed to do SLUMS. Pt aware has not been thinking clearly during this hospital stay these past few days. OT Pain Assessment Pain When Pain Assessed At Rest Pain Present Pain Present Pain Reported Location left hip Pain Behaviors Facial Grimacing,Holding Area M4 OT- IP ADL's Start: 12/04/24 14:20 Freq: Status: Active Protocol: Document 12/04/24 14:21 [facility] (Rec: 12/04/24 14:35 [facility] [id number]) OT ADL-Grooming Comments OT Grooming Comments Not performed. OT ADL-Oral Care Comments Oral Care Comments Not performed. OT ADL-Dressing General Eval Lower Body Dressing Ability Maximum Assistance Areas Needing Assistance Socks Comments OT Dressing Comments Able to show pt use of LB dressing equipment. OT ADL-Toileting General Evaluation Toileting Ability Total Assistance Comments OT Toileting Comments Lorenzo in. OT ADL-Bathing Comments OT Bathing Comments Not performed, Sponge bath more appropriate at this time due to buckling of LLE. M5 OT- IP IADL's Start: 12/04/24 14:20 Freq: Status: Active Protocol: Document 12/04/24 14:21 [facility] (Rec: 12/04/24 14:35 [facility] [id number]) OT-Instrumental Activities of Daily Living Deficits IADL Deficits Identified Deficits Home Safety Awareness Awareness of Need for Assistance at Home Good Awareness Medication Management Medication Management Comments Pt is a bit groggy and at this time may need assist. Money Management Money Management Comments Pt is a bit groggy and at this time may need assist. Meal Preparation Meal Preparation Comments Pt will need assist. Experimental Machining Lab Manager Experimental [employer]ining Lab Manager Comments Pt will need assist. M6 OT- IP Functional Cognition Start: 12/04/24 14:20 Freq: Status: Active Protocol: Document 12/09/24 14:26 [facility] (Rec: 12/09/24 14:32 [facility] [id number]) Cognitive Factors Limiting Selfcare Function Cognitive Ability Level of Alertness Alert,Confusional State Patient Orientation Name,Year,Place,Situation Attention Span Ability Capable of Focused Attention, Capable of Sustained Attention Ability to Follow Commands Able to Follow One Step Commands Memory Description Short Term Impaired Cognitive Tests SLUMS Pt scored 23/30 which implies mild cognitive deficits. Ptnot able to calculate 100-23, able to recall 9 animals in one minute, able to recall 4/5 objects after time passed, not able to state 4 digit number backwards, and not able to draw the hour hands on the clock correctly after time given. Cognitive Comments Cognitive Assessment Comments Pt thinking much better than last OT visit, however pt still feels that she is not at her baseline. Pt at times needing increased time to answer questions. M8 OT- IP Objective Assessments Start: 12/04/24 14:20 Freq: Status: Active Protocol: Document 12/04/24 14:21 [facility] (Rec: 12/04/24 14:35 [facility] [id number]) OT Gross Range of Motion Upper Extremity Range of Motion Assessment Within Functional Limits OT Strength Upper Extremity Strength Assessment Within Functional Limits M9 OT- IP Assessment and Plan Start: 12/04/24 14:20 Freq: Status: Active Protocol: Document 12/09/24 14:26 [facility] (Rec: 12/09/24 14:32 [facility] [id number]) OT Summary Assessment and Plan Potential Rehabilitation Potential Good Analytic Complexity at Evaluation Moderate Summary OT Impairments Pain,Balance,Functional Mobility,Grooming,Dressing, Toileting,Bathing,Toilet Transfers,Shower Transfers, Activity Tolerance Progress Towards Goals Slow Progress due to Pain,Slow Progress due to Medical Issues,Slow Progress due to Cognition Assessment Summary Pt now on heated hiFLo. Pt looking to go to skilled rehab when medically stable. Goals Self-Feeding Goal Independent Grooming Goal Independent Dressing Goal Independent Toileting Goal Independent Bathing Goal Independent Toilet Transfer Goal Independent Shower Transfer Goal Independent Days to Meet Goals 20 Frequency of Treatment Other frequency 5x/week Treatment Plan OT Treatment Plan ADL Training,Functional Mobility,Patient/Family Education,Discharge Planning Other Treatment Recommendations and Next standing ADL's at sink with Treatment Focus FWW Discharge Recommendations OT Discharge Recommendations SNF Rehab Transportation Needs at Discharge Wheelchair/Cabulance
[2024-12-09 19:11] LABS: Allen Test for ABG Passed? Positive; Blood Gas Collection Site Right Radial; Delivery System High Flow Nas Cannul; HCO3 ABG 25 mmol/L (23-27); Oxygen Saturation ABG 88 % (95-100); PCO2 ABG 33.7 mmHg (35-45); PO2 ABG 50 mmHg (80-100); TCO2 ABG 24 mmol/L (23-27); pH ABG 7.48 (7.35-7.45)
[2024-12-09] MEDS: SENNOSIDES 8.6 MG TABLET 17.2 MG PO (21:37)
[2024-12-10] VITALS (24 sets, daily range): BP systolic 130–168; BP diastolic 48–62; PULSE 65–88; RESP 16–26; TEMP 35.9–37.1; O2SAT 90–99
[2024-12-10] MEDS: ALBUTEROL/IPRATROPIUM 3 ML AMPUL INH ×5 (06:05→23:03)
[2024-12-10] MEDS: ACETAMINOPHEN 325 MG TABLET 650 MG PO ×2 (06:37→17:00)
[2024-12-10] MEDS: CEFEPIME 2 GM in SODIUM CHLORIDE 0.9% 100 ML IV ×2 (06:37→19:22)
--- NOTE | 2024-12-10 07:27 | PM.PN.1 ---
Subjective Subjective Interval history: S: She remains somnolent but will arouse and answer most questions. She is able to eat with supervision. She still remains on high-flow, and had have her rates increased overnight. The patient is a 69-year-old female who presented with a femoral neck fracture. The fracture occurred after the patient fell while getting up to go to the bathroom. This incident happened yesterday. The patient reported losing her balance and fell, resulting in the injury to her left hip. She has not reported pain in any other areas. Her medical history is significant for chronic kidney disease, severe chronic obstructive pulmonary disease (COPD), and a history of multiple strokes. Given these conditions, a decision was made to perform a smaller surgical procedure involving the placement of three screws to minimize blood loss and postoperative complications. Hospital course: 12/02: Hypotensive episode during induction of anesthesia patient brought back up to the floor Echocardiogram was ordered demonstrated normal ejection fraction and no aortic stenosis 12/03: No events overnight Prepared for fixation screws per Orthopedic surgery 12/04: No complications postoperatively for ORIF slept well overnight Was able to stand and pivot and transfer from bed to chair Discussed recovery. And patient agreed that she needs inpatient rehab and is amenable 12/07: She developed confusion and a fever as well as a productive cough. She then developed hypoxemia. She was started on IV cefepime with blood cultures pending. Chest x-ray was obtained and she required high-flow overnight. 12/08: HFO2, more oriented. 12/09: 35%, 45 L/Min. No acute complaints, she appears clinically to be improving. 12/10: Ongoing coughing and worse somnolence at the end of the day. She required up titration of her FiO2 to 40% overnight. Exam Vital Signs (past 8 hours): - 12/10/24 00:00 12/10/24 00:30 12/10/24 02:25 Temperature 98.8 F Pulse Rate 88 81 Respiratory Rate 26 H 24 Blood Pressure 157/53 H Pulse Oximetry 92 91 91 Oxygen Delivery Method Heated High Flow Oxygen Flow Rate 45 Fraction of Inspired Oxygen 12/10/24 03:58 12/10/24 04:00 12/10/24 06:00 Temperature 97.3 F L Pulse Rate 76 76 Respiratory Rate 20 22 Blood Pressure 168/62 H Pulse Oximetry 92 92 90 L Oxygen Delivery Method Heated High Flow Oxygen Flow Rate 45 Fraction of Inspired Oxygen 12/10/24 06:04 12/10/24 06:05 Temperature Pulse Rate 73 73 Respiratory Rate 22 22 Blood Pressure Pulse Oximetry 90 L 90 L Oxygen Delivery Method Heated High Flow Oxygen Flow Rate Fraction of Inspired Oxygen 40 Fraction of Inspired Oxygen 40 SaO2/FiO2 Ratio 225 Oxygen Delivery Method Heated High Flow Oxygen Flow Rate 45 Narrative Exam Narrative: NAD, oriented to person. She was slow to answer, somnolent, and on high-flow oxygen. She was frail. Lungs are clear, normal rate and effort. Heart is regular, systolic murmur and no gallop or rub. Abdomen is soft, non distended. Extremities are free of edema. Left hip surgical site appears unremarkable Objective ECG Impression: Normal sinus rhythm Left axis deviation Cannot rule out Inferior infarct , age undetermined Imaging Multiple studies:: My impression: 12/10: Largely unchanged opacities with a small left pleural effusion and a calcified aortic valve. Radiologist's impression: ECHO: demonstrated normal ejection fraction and no aortic stenosis CXR 12/10: Mostly unchanged from December 07 with interstitial and alveolar opacities. Minimal left-sided pleural effusion. CXR 12/07: Probably due to technique, bibasilar mixed interstitial and alveolar opacities are more prominent, but are most dense in the left lower lung or small effusion is stable. Findings superimposed on emphysema. Labs 12/09/24 12:00 12/09/24 12:00 Labs: Laboratory Results - last 24 hr 12/09/24 12/09/24 12:00 18:58 WBC 3.1 L RBC 4.09 Hgb 11.7 L Hct 35.7 L MCV 87.3 MCH 28.6 MCHC 32.7 RDW 14.8 Plt Count 243 ABG Sample Site Right radial ABG pH 7.48 H ABG pCO2 33.7 L ABG pO2 50 L ABG HCO3 25 ABG Total CO2 24 ABG O2 Saturation 88 L ABG Base Excess 2.0 Gilberto Test Positive O2 Delivery Device High flow lisa cannul FiO2 % 35.0 % Sodium 135 L Potassium 4.5 Chloride 100 Carbon Dioxide 23 BUN 37 H Creatinine 1.45 H Estimated GFR 40 L BUN/Creatinine Ratio 25.5 H Glucose 105 Calcium 8.9 Magnesium 1.9 PFSH Social History household members: spouse Smoking Status: Former smoker alcohol intake: never Assessment & Plan Assessment & Plan narrative: 1. Nondisplaced closed Left femoral neck fracture secondary to ground level fall (S/) ORIF), present on admission and active. 2. CKD Stage 3, present on admission and active. 3. Severe COPD, stable without exacerbation. 4. Unintentional weight loss 20-40 lb in September and , stable without exacerbation. 5. Fever, encephalopathy, sepsis syndrome due to UTI and pneumonia, stable without exacerbation. 6. MDR E.coli UTI, , stable without exacerbation. 7. Hospital-acquired pneumonia, stable without exacerbation. 8. Acute hypoxic respiratory failure, new as of December 07. Active. 9. Acute septic encephalopathy, new as of December 07. Improving. PLAN: -continue antibiotics (Cefepime, switched from Levofloxacin on 12/08) -monitor repeat blood cultures. -Wean O2 as able. -PT and OT. -SNF when improved. -CT PE to rule out pulmonary embolism and further delineate process in the lungs. JOSÉ MIGUEL: Unclear given the persistence of her hypoxic respiratory failure and slow progression. DVT prophylaxis: ASA BID Time-Based Coding :: [TOTAL MINUTES] spent with patient and on the chart (including review of chart, obtaining history, exam, reviewing outside data, placing orders, documenting exam and treatment plan, and counseling patient) on [DATE]. Quality VTE Deep Vein Thrombosis/Pulmonary Embolism Present on Admission: No
--- NOTE | 2024-12-10 07:59 | PT-IP ANOTE ---
Rebecca agreeable for trial of participation in PT verbally, but delayed following verbal cues for AROM L LE ie repeated requests followed by one much delayed heel slide. Patient verbalizes leave me alone X2. Of note O2 sat 89 to 90 % on Heated high flow O2 at rest, but with verbalizations and coughing O2 did increase to 94% while patient was refusing to participate.
--- NOTE | 2024-12-10 08:27 | PM.PNPO.1 ---
Subjective Subjective Date Patient Seen: 12/10/24 Time Patient Seen: 08:15 Interval history: Patient was found sleeping in bed. Was able to awake and she was able to answer a few questions with regards to no new numbness tingling down the leg and pain was under control with the hip. She was nonverbal after those direct questions were answered. Exam Vital Signs (past 8 hours): - 12/10/24 00:30 12/10/24 02:25 12/10/24 03:58 Temperature Pulse Rate 81 76 Respiratory Rate 24 20 Blood Pressure Pulse Oximetry 91 91 92 Oxygen Delivery Method Heated High Flow Oxygen Flow Rate 45 Fraction of Inspired Oxygen 12/10/24 04:00 12/10/24 06:00 12/10/24 06:04 Temperature 97.3 F L Pulse Rate 76 73 Respiratory Rate 22 22 Blood Pressure 168/62 H Pulse Oximetry 92 90 L 90 L Oxygen Delivery Method Heated High Flow Oxygen Flow Rate 45 Fraction of Inspired Oxygen 12/10/24 06:05 12/10/24 08:17 Temperature Pulse Rate 73 Respiratory Rate 22 Blood Pressure Pulse Oximetry 90 L Oxygen Delivery Method Heated High Flow Heated High Flow Oxygen Flow Rate Fraction of Inspired Oxygen 40 Fraction of Inspired Oxygen 40 SaO2/FiO2 Ratio 225 Oxygen Delivery Method Heated High Flow Oxygen Flow Rate 45 Narrative Exam Narrative: 5/5 strength in hip flexors, quadriceps, hamstrings, DF, PF, EHL bilaterally. Sensation to light touch intact throughout BLE. Calves soft, compressible, nontender. Dressing placed intraoperatively CDI. SCDs on but not functioning. Adjusted them and they began to work. Objective Labs 12/09/24 12:00 12/09/24 12:00 Labs: Laboratory Results - last 24 hr 12/09/24 12/09/24 12:00 18:58 WBC 3.1 L RBC 4.09 Hgb 11.7 L Hct 35.7 L MCV 87.3 MCH 28.6 MCHC 32.7 RDW 14.8 Plt Count 243 ABG Sample Site Right radial ABG pH 7.48 H ABG pCO2 33.7 L ABG pO2 50 L ABG HCO3 25 ABG Total CO2 24 ABG O2 Saturation 88 L ABG Base Excess 2.0 Gilberto Test Positive O2 Delivery Device High flow lisa cannul FiO2 % 35.0 % Sodium 135 L Potassium 4.5 Chloride 100 Carbon Dioxide 23 BUN 37 H Creatinine 1.45 H Estimated GFR 40 L BUN/Creatinine Ratio 25.5 H Glucose 105 Calcium 8.9 Magnesium 1.9 PFSH Social History household members: spouse Smoking Status: Former smoker alcohol intake: never Assessment & Plan Post-op Postoperative Procedures: Procedures Operation Date: 12/02/24 12:00 <No data on this case meets the specified criteria> Operation Date: 12/03/24 17:00 Actual Procedure Side Surgeon p ORIF Hip/Cannulated Screws Left Jae Victor MD Postoperative day: 7 Postoperative plan: routine post-op care Postoperative plan narrative: 1) WBAT to LLE. Walker at all times. Ambulate with physical therapy. 2) Currently receiving ASA 81mg BID and clopidogrel for VTE prophylaxis. Can probably d/c ASA. 3) F/u in office in about 8-9 days for wound check/staple removal. If travel from rehab is too cumbersome, liam can be removed at the rehab facility and pt can f/u w/ Dr Victor in 4-6 weeks for symptom check. 4) Disposition, pain management, medication management per hospitalist service. Patient has been stable from an orthopedic standpoint for the past few days. Discussed with hospitalist. Orthopedics signing off. Time Spent With Patient Time with patient: 15-24 minutes Quality VTE Deep Vein Thrombosis/Pulmonary Embolism Present on Admission: No
[2024-12-10] MEDS: CLOPIDOGREL 75 MG TABLET PO (08:29)
[2024-12-10] MEDS: DOCUSATE 100 MG CAPSULE PO ×2 (08:30→21:56)
[2024-12-10] MEDS: ASPIRIN EC 81 MG TABLET PO ×2 (08:30→21:56)
--- NOTE | 2024-12-10 10:35 | DIET.PN1 ---
Addendum entered by Marie Qureshi 12/10/24 14:35: Met with pt at bedside who is now sitting up drinking an Ensure, tolerating them and ordered another with dinner. Friends/family in room visiting and talking with patient. Pt ordered a dinner and lunch with unit host. Per RN, pt has been lethargic but has been doing sips of Ensure and water when awake. Will do Ensure with meals and follow PO intakes closely. Original Note: Dietary Progress Note Assessment: Pt continues to have no significant PO intakes. Pt on day 5 of no significant oral intake. Per healthcare teams rounds, will do ST eval. Ht: 162.56 cm Wt: 68.039 kg BMI: 25.7 Last BM: 12/07/24 (12/07/24 00:00) MNA: 7 Hao Score: 16 Diet: 12/04/24 Breakfast Carbohydrate Consistent Diet Diet Modifications: Carbohydrate level: Medium (3 CHO) Reflex DM orders: No Food Texture: Level 7 - Regular Liquid Consistency: Level 0 - Thin Nutrition Percent Meal Consumed 0% 12/09/24 18:00 Percent Meal Consumed 0% 12/09/24 09:31 Labs: RBC 4.09 X10^6/uL (4.0-5.2) 12/09/24 12:00 Hgb 11.7 g/dL (12.0-16.0) L 12/09/24 12:00 Hct 35.7 % (36-46) L 12/09/24 12:00 Creatinine 1.45 mg/dL (0.52-1.04) H 12/09/24 12:00 Hemoglobin A1c 5.8 % (4.0-6.0) 12/01/24 14:00 Lactate 1.3 mmol/L (0.7-2.1) 12/07/24 19:00 Nutrition Diagnosis: new dx of inadequate oral intakes r/t decreased ability to consume adequate energy intake aeb on day 5 of <25% of estimated energy needs Interventions: -Will f/u on ST eval findings. Consider starting enteral nutrition as appropriate. EER: 1700 kcals (25 kcals/kg per BMI) 55 g protein (.8 g protein per kg per renal+DM+PCM) Electronically Signed by: Marie Qureshi 12/10/24 10:35 Clinical Dietitian [address] [address]
--- NOTE | 2024-12-10 11:02 | DI.RAD.S_ITS ---
PROCEDURE: XR CHEST 1V INDICATIONS: dyspnea TECHNIQUE: One view of the chest was acquired. COMPARISON: [facility], CR, XR CHEST 1V, 12/07/2024, 18:43. [facility], CR, XR CHEST 1V, 12/06/2024, 2:36. [facility], CR, XR CHEST 1V, 12/05/2024, 14:32. [facility], CR, XR CHEST 1V, 12/01/2024, 14:09. FINDINGS: Surgical changes and devices: Surgical clips along the right side of the neck. Lungs and pleura: Diffuse reticulated opacification. No focal lung consolidation. Mild hyperinflation. No pleural effusions or pneumothorax. Mediastinum: Aortic arch calcifications. Mediastinal contours appear normal. Heart size is normal. Bones and chest wall: No suspicious bony lesions. Overlying soft tissues appear unremarkable. IMPRESSION: Emphysema. Otherwise, no acute cardiothoracic process. Dictated by: Chano Gonzales M.D. on 12/10/2024 at 13:05 Approved by: Chano Gonzales M.D. on 12/10/2024 at 13:06
--- NOTE | 2024-12-10 13:10 | DI.CT.S_ITS ---
PROCEDURE: CT ANGIO CHEST PE PROTOCOL INDICATIONS: Hypoxia and rule out PE TECHNIQUE: After the administration of intravenous contrast, 2 mm thick sections acquired from the pulmonary apices to the posterior costophrenic angles. 3-dimensional maximum intensity projection (MIP) coronal and sagittal reformats were then acquired through the thorax. For radiation dose reduction, the following was used: automated exposure control, adjustment of mA and/or kV according to patient size. COMPARISON: [facility], CR, XR CHEST 1V, 12/05/2024, 14:32. FINDINGS: Image quality: Diagnostic. Thyroid: Within normal limits. Cardiac: Mild cardiomegaly. No pericardial effusion. RV: LV ratio within normal limits. No bowing of the interventricular septum. No reflux of contrast into the hepatic veins. Aorta: Thoracic aortic diameter within normal limits. Pulmonary Artery: Main pulmonary artery diameter within normal limits. No filling defect in the pulmonary arteries to the segmental level Lungs: Severe centrilobular and paraseptal emphysema, most conspicuous at the lung apices with biapical scarring. Lingular and bibasilar dependent subsegmental atelectasis. No other focal lung consolidation. Pleura: No pneumothorax or pleural effusion. Airways: The trachea and mainstem bronchi are patent. Bibasilar bronchiolectasis (6/66; 5/203). Lymph Nodes: Multiple borderline enlarged mediastinal nodes with largest measuring 8 mm in the short axis at left lower paratracheal station (4/48). Otherwise, no mediastinal, hilar, or axillary lymphadenopathy. Esophagus: Within normal limits. Bones: No acute osseous abnormality. Upper Abdomen: Likely hepatic steatosis with focal fatty sparing at the false ligament (4/149). IMPRESSION: 1. No CT evidence of pulmonary embolism to the segmental level. 2. Severe emphysema. 3. Likely hepatic steatosis. Dictated by: Chano Gonzales M.D. on 12/10/2024 at 14:00 Approved by: Chano Gonzales M.D. on 12/10/2024 at 14:06
--- NOTE | 2024-12-10 14:42 | CM.DPC ---
DCP Cont. Reviewed EMR and team rounds for status updates. Pt still on high flow O2, has a new pneumonia, and is mostly sleeping and unable to work with therapies without getting too drowsy. [facility] updated today, they can still accept when medically stable, monitoring for JOSÉ MIGUEL: Sat 12/12. Keep Harry updated.
--- NOTE | 2024-12-10 16:00 | PT-IP ANOTE ---
PT checks back on pt who is sleeping soundly and her coloring is more pale than Sunday when last treated by this PT. Checked in with nsg. Will con't PT efforts next date. PT also notes abnormal blood gases this date.
--- NOTE | 2024-12-10 16:50 | OT.IP.TRT ---
Current Diagnoses Fracture of unspecified part of neck of left femur, initial encounter for closed fracture (12/01/24) Fracture of unspecified part of neck of unspecified femur, initial encounter for closed fracture (12/01/24) Surgery Performed Operation Date: 12/02/24 12:00 <No data on this case meets the specified criteria> Operation Date: 12/03/24 17:00 Actual Procedures p ORIF Hip/Cannulated Screws(Left) - Jae Victor MD Occupational Therapy Treatment Note M2 OT-IP Current Condition Start: 12/04/24 14:20 Freq: Status: Active Protocol: Document 12/04/24 14:21 [facility] (Rec: 12/04/24 14:35 [facility] [id number]) Occupational Therapy Current Condition Current Condition Evaluation Date 12/04/24 Treatment Diagnosis S/P L ORIF Diagnosis Onset Date 12/01/24 M3 OT- IP Subjective and Pain Start: 12/04/24 14:20 Freq: Status: Active Protocol: Document 12/10/24 17:44 [facility] (Rec: 12/10/24 17:51 [facility] [id number]) OT- Subjective Occupational Therapy Visit Type Type Treatment Note Visit Start Time 16:25 Visit Stop Time 16:53 Occupational Therapy Visit Comments Patient Comments Checked on pt as sleeping and asked if she has used the toilet lately. Pt insists has a Purewick in place. Pt did not have a Purewick and able to check her brief which was wet and then pt agreed to get up to the BSC. Patient/Caregiver Goals TO get better. OT Pain Assessment Pain Present Pain Present Pain Reported Location left hip Intensity 8 Scale Used Numeric (0 - 10) M4 OT- IP ADL's Start: 12/04/24 14:20 Freq: Status: Active Protocol: Document 12/10/24 17:44 [facility] (Rec: 12/10/24 17:51 [facility] [id number]) OT ADL-Grooming Comments OT Grooming Comments Pt able to wash her face after set-up of wash cloth. OT ADL-Oral Care Comments Oral Care Comments Pt able to rinse her mouth out with mouth wash. OT ADL-Dressing General Eval Lower Body Dressing Ability Maximum Assistance Areas Needing Assistance Underpants/Brief,Socks OT ADL-Toileting General Evaluation Toileting Ability Maximum Assistance Areas Needing Assistance Manage Clothing Devices Toileting Assistive Devices Commode Comments OT Toileting Comments Pt able to wipe on her own but needing assist for brief management needs. Nursing aid able to put protective cream on her bottom. M5 OT- IP IADL's Start: 12/04/24 14:20 Freq: Status: Active Protocol: Document 12/04/24 14:21 [facility] (Rec: 12/04/24 14:35 [facility] [id number]) OT-Instrumental Activities of Daily Living Deficits IADL Deficits Identified Deficits Home Safety Awareness Awareness of Need for Assistance at Home Good Awareness Medication Management Medication Management Comments Pt is a bit groggy and at this time may need assist. Money Management Money Management Comments Pt is a bit groggy and at this time may need assist. Meal Preparation Meal Preparation Comments Pt will need assist. Sales And Marketing Administrator Sales And Marketing Administrator Comments Pt will need assist. M6 OT- IP Functional Cognition Start: 12/04/24 14:20 Freq: Status: Active Protocol: Document 12/10/24 17:44 [facility] (Rec: 12/10/24 17:51 [facility] [id number]) Cognitive Factors Limiting Selfcare Function Cognitive Ability Level of Alertness Alert,Confusional State Attention Span Ability Capable of Focused Attention, Capable of Sustained Attention Ability to Follow Commands Able to Follow One Step Commands Memory Description Short Term Impaired Cognitive Comments Cognitive Assessment Comments Pt still at times forgetful. Pt able to follow commands for bed mobility and toileting needs. M7 OT- IP Mobility and Balance Start: 12/04/24 14:20 Freq: Status: Active Protocol: Document 12/10/24 17:44 [facility] (Rec: 12/10/24 17:51 [facility] [id number]) OT- Bed Mobility Assessment Sit to Supine Sit to Supine Assist Contact Guard Assistance Scooting Scooting to Edge of Bed Contact Guard Assistance OT-Transfer Assessment Sit to and From Stand Sit to and from Stand Minimal Assistance Transfers Transfer Ability Minimal Assistance Technique Transfer Destination Bed,Bedside Commode Devices Transfer Assistive Devices Gait Belt,Front Wheeled Walker Comments Mobility Comments Pt able to move her LLE to the edge of the bed. FINESSE to stand with the FWW and transfer to and form the BSC. Nursing aid present to assist with all the lines and tubing . OT- Balance Assessment Sitting Balance and Reactions Static Sitting Balance Ability Normal Dynamic Sitting Balance Ability Good Standing Balance and Reactions Static Standing Balance Ability Good Dynamic Standing Balance Ability Fair M8 OT- IP Objective Assessments Start: 12/04/24 14:20 Freq: Status: Active Protocol: Document 12/04/24 14:21 [facility] (Rec: 12/04/24 14:35 [facility] [id number]) OT Gross Range of Motion Upper Extremity Range of Motion Assessment Within Functional Limits OT Strength Upper Extremity Strength Assessment Within Functional Limits M9 OT- IP Assessment and Plan Start: 12/04/24 14:20 Freq: Status: Active Protocol: Document 12/10/24 17:44 [facility] (Rec: 12/10/24 17:51 [facility] [id number]) OT Summary Assessment and Plan Potential Rehabilitation Potential Good Analytic Complexity at Evaluation Moderate Summary OT Impairments Pain,Balance,Functional Mobility,Grooming,Dressing, Toileting,Bathing,Toilet Transfers,Shower Transfers, Activity Tolerance Progress Towards Goals Progressing Toward Goals,Slow Progress due to Medical Issues Assessment Summary Pt able to tolerate use of BSC today. Pt still needing encouragement to initiate and participate in therapy. Pt to go to skilled rehab when medically stable. Goals Self-Feeding Goal Independent Grooming Goal Independent Dressing Goal Independent Toileting Goal Independent Bathing Goal Independent Toilet Transfer Goal Independent Shower Transfer Goal Independent Days to Meet Goals 19 Frequency of Treatment Other frequency 5x/week Treatment Plan OT Treatment Plan ADL Training,Functional Mobility,Patient/Family Education,Discharge Planning Other Treatment Recommendations and Next standing ADL's at sink with Treatment Focus FWW Discharge Recommendations OT Discharge Recommendations SNF Rehab Transportation Needs at Discharge Wheelchair/Cabulance
[2024-12-10] MEDS: OXYCODONE IR 10 MG TABLET PO (17:00)
[2024-12-10] MEDS: SENNOSIDES 8.6 MG TABLET 17.2 MG PO (21:56)
[2024-12-11] VITALS (16 sets, daily range): BP systolic 130–186; BP diastolic 48–88; PULSE 66–94; RESP 14–20; TEMP 35.7–37.2; O2SAT 90–97
[2024-12-11] MEDS: CEFEPIME 2 GM in SODIUM CHLORIDE 0.9% 100 ML IV ×2 (06:49→17:48)
--- NOTE | 2024-12-11 07:40 | PC.WOUNDPHOT ---
Blanchable redness to sacrum
[2024-12-11] MEDS: ALBUTEROL/IPRATROPIUM 3 ML AMPUL INH ×4 (08:25→23:20)
[2024-12-11 10:26] LABS: Base Excess ABG -1.3 mmol/L (-2-3); Blood Gas Collection Site Right Brachial; Delivery System High Flow Nas Cannul; HCO3 ABG 23 mmol/L (23-27); Oxygen Saturation ABG 92 % (95-100); PO2 ABG 61 mmHg (80-100); TCO2 ABG 22 mmol/L (23-27); pH ABG 7.43 (7.35-7.45)
--- NOTE | 2024-12-11 11:56 | PT-IP ANOTE ---
PT checks in with patient who is sleeping soundly, I attempted multiple times to wake patient, tried manual ankle pumps left ankle however pt not waking up and sleeping soundly. On high pressure O2. PT will continue to check in daily and attempt to mobilize patient.
--- NOTE | 2024-12-11 12:57 | PM.PN.1 ---
Subjective Subjective Interval history: The patient is a 69-year-old female who presented with a femoral neck fracture after a fall. Course has been complicated by an acute encephalopathy and hypoxemic respiratory failure requiring heated high flow. S: She remains somnolent but will arouse and answer most questions. Unable to eat for multiple days per nursing and [employer] staff today Hospital course: 12/02: Hypotensive episode during induction of anesthesia patient brought back up to the floor Echocardiogram was ordered demonstrated normal ejection fraction and no aortic stenosis 12/03: No events overnight Prepared for fixation screws per Orthopedic surgery 12/04: No complications postoperatively for ORIF slept well overnight Was able to stand and pivot and transfer from bed to chair Discussed recovery. And patient agreed that she needs inpatient rehab and is amenable 12/07: She developed confusion and a fever as well as a productive cough. She then developed hypoxemia. She was started on IV cefepime with blood cultures pending. Chest x-ray was obtained and she required high-flow overnight. 12/08: HFO2, more oriented. 12/09: 35%, 45 L/Min. No acute complaints, she appears clinically to be improving. 12/10: Ongoing coughing and worse somnolence at the end of the day. She required up titration of her FiO2 to 40% overnight. 12/11: continued somnolence. ABG without hypercapnea. CTA on 12/10 was negative for PE, did show severe emphysema. Exam Vital Signs (past 8 hours): - 12/11/24 05:00 12/11/24 08:00 12/11/24 08:25 Temperature 98.9 F Pulse Rate 85 82 Respiratory Rate 20 16 Blood Pressure 153/48 H Pulse Oximetry 95 91 Oxygen Delivery Method Heated High Flow Heated High Flow Oxygen Flow Rate 0 50 Fraction of Inspired Oxygen 35 35 12/11/24 08:25 12/11/24 10:27 12/11/24 10:30 Temperature Pulse Rate 81 83 82 Respiratory Rate 16 14 14 Blood Pressure Pulse Oximetry 91 92 92 Oxygen Delivery Method Heated High Flow Oxygen Flow Rate 50 Fraction of Inspired Oxygen 35 Fraction of Inspired Oxygen 35 SaO2/FiO2 Ratio 262 Oxygen Delivery Method Heated High Flow Oxygen Flow Rate 50 Narrative Exam Narrative: NAD, oriented to person. She was slow to answer, somnolent, and on high-flow oxygen. She was frail. Lungs are clear, normal rate and effort. Heart is regular, systolic murmur and no gallop or rub. Abdomen is soft, non distended. Extremities are free of edema. Left hip surgical site appears unremarkable Objective Labs 12/11/24 12:44 12/11/24 12:44 Labs: Laboratory Results - last 24 hr 12/11/24 10:22 ABG Sample Site Right brachial ABG pH 7.43 ABG pCO2 34.0 L ABG pO2 61 L ABG HCO3 23 ABG Total CO2 22 L ABG O2 Saturation 92 L ABG Base Excess -1.3 Gilberto Test N/a O2 Delivery Device High flow lisa cannul FiO2 % 35.0 % PFSH Social History household members: spouse Smoking Status: Former smoker alcohol intake: never Assessment & Plan Assessment & Plan narrative: 1. Nondisplaced closed Left femoral neck fracture secondary to ground level fall (S/) ORIF), present on admission and active. 2. CKD Stage 3, present on admission and active. 3. Severe COPD, stable without exacerbation. 4. Unintentional weight loss 20-40 lb in September and , stable without exacerbation. 5. Fever, encephalopathy, sepsis syndrome due to UTI and pneumonia, stable without exacerbation. 6. MDR E.coli UTI, , stable without exacerbation. 7. Hospital-acquired pneumonia, stable without exacerbation. 8. Acute hypoxic respiratory failure, new as of December 07. Active. 9. Acute septic encephalopathy, new as of December 07. Improving. PLAN: -continue antibiotics (Cefepime, switched from Levofloxacin on 12/08). Resistant to some cephalosporins but not ESBL organism. -consider addition of steroids given emphesematous appearance on CT, though she is not wheezy on exam. CTA was negative yesterday. -will start some d5 1/2 NS for maintenance fluids and glucose. Unclear etiology for ongoing lethargy and encephalopathy at this time. consider MRI if no improvement in encephalopathy, will reduce opiates today. Ammonia level was <9. Repeat UA negative. -monitor repeat blood cultures. -Wean O2 as able. -PT and OT. -SNF when improved. JOSÉ MIGUEL: Unclear given the persistence of her hypoxic respiratory failure and slow progression. DVT prophylaxis: ASA BID Time-Based Coding :: [TOTAL MINUTES] spent with patient and on the chart (including review of chart, obtaining history, exam, reviewing outside data, placing orders, documenting exam and treatment plan, and counseling patient) on [DATE]. Quality VTE Deep Vein Thrombosis/Pulmonary Embolism Present on Admission: No
[2024-12-11 13:02] LABS: Add Manual Diff / Slide Review NO; Basophils Absolute Auto 0 /uL (0-100); Basophils Percent Auto 0.4 % (0-2); Eosinophils Absolute Auto 0 /uL (0-450); Eosinophils Percent Auto 1.2 % (2-4); Hematocrit 35.2 % (36-46); Hemoglobin 11.7 g/dL (12.0-16.0); Lymphocytes Absolute Auto 900 /uL (1100-4500); Lymphocytes Percent Auto 22.9 % (25-40); Mean Corpuscular HGB Conc 33.1 % (30-36); Mean Corpuscular Hemoglobin 28.4 PG (26-34); Mean Corpuscular Volume 85.8 fL (80-100); Monocytes Absolute Auto 400 /uL (0-900); Monocytes Percent Auto 11.4 % (3-14); Neutrophils Absolute Auto 2400 /uL (1500-7000); Neutrophils Percent Auto 64.1 % (50-75); Platelet Count 294 X10^3/uL (150-400); Red Cell Distribution Width 14.6 % (11.6-14.8); White Blood Cell Count 3.7 X10^3/uL (4.5-11.0)
[2024-12-11 13:21] LABS: Alanine Aminotransferase 22 IU/L (<35); Albumin 3.3 g/dL (3.5-5.0); Albumin Globulin Ratio 0.9 (1.0-2.8); Alkaline Phosphatase 61 U/L (38-126); Ammonia (NH3) < 9 umol/L (9-30); Aspartate Aminotransferase 56 IU/L (14-36); BUN Creatinine Ratio 25.2 (6-22); Bilirubin Total 0.7 mg/dL (0.2-1.3); Blood Urea Nitrogen 37 mg/dL (7-17); Calcium 8.8 mg/dL (8.4-10.2); Carbon Dioxide 21 mmol/L (22-32); Chloride 107 mmol/L (98-107); Estimated Glomerular Filt Rate 39 mL/min (>60); Globulin 3.6 g/dL (1.7-4.1); Glucose 116 mg/dL (80-110); HEMOLYSIS < 15 (0-50); Potassium 4.1 mmol/L (3.4-5.1); Sodium 140 mmol/L (137-145); Total Protein 6.9 g/dL (6.3-8.2)
[2024-12-11 14:59] LABS: Appearance Urine UA CLEAR; Bilirubin Urine UA NEGATIVE (NEGATIVE); Color Urine UA YELLOW; Glucose Urine UA NEGATIVE (Negative); Ketones Urine UA TRACE (NEGATIVE); Leukocyte Esterase Urine UA NEGATIVE (NEGATIVE); Nitrite Urine UA NEGATIVE (Negative); Occult Blood Urine UA 1+ (Negative); Protein Urine UA 2+ (Negative); Urobilinogen Urine UA 0.2 E.U./dL (0.2)
[2024-12-11 15:12] LABS: RBC Urine None Seen (0-5/HPF); Urine Volume 10mL (spun); WBC Urine 0-1/HPF (0-5/HPF); pH Urine UA 5.5 (4.5-8.0)
[2024-12-11 15:13] LABS: Bacteria Urine None Seen; Culture Indicated Urine Cult Not Indicated; Squamous Epithelial Cell Urine 1-5 /HPF (0-5/HPF)
--- NOTE | 2024-12-11 15:22 | DIET.PN1 ---
Dietary Progress Note Assessment: f/u Per nursing staff pt did not eat breakfast or lunch this morning, is sleeping. Is not drinking water or Ensures. Pt with 5 days inadequate oral intake. Hospitalist informed in rounds. Ht: 162.56 cm Wt: 68.039 kg BMI: 25.7 Last BM: 12/07/24 (12/07/24 00:00) MNA: 7 Hao Score: 16 Diet: 12/10/24 Dinner General (Regular) Diet Diet Modifications: Food Texture: Level 7 - Regular Liquid Consistency: Level 0 - Thin Nutrition Percent Meal Consumed 0% 12/09/24 18:00 Labs: RBC 4.10 X10^6/uL (4.0-5.2) 12/11/24 12:44 Hgb 11.7 g/dL (12.0-16.0) L 12/11/24 12:44 Hct 35.2 % (36-46) L 12/11/24 12:44 Creatinine 1.47 mg/dL (0.52-1.04) H 12/11/24 12:44 Hemoglobin A1c 5.8 % (4.0-6.0) 12/01/24 14:00 Lactate 1.3 mmol/L (0.7-2.1) 12/07/24 19:00 Nutrition Diagnosis: Severe acute Protein Calorie Malnutrition related to inadequate oral intake secondary to vomiting, diarrhea and recent lethargy as evidenced by 13% weight loss within 3 months (severe), <50% of estimated energy needs for 5 weeks before admission per diet recall (severe) and <25% of estimated energy in last 5 days per nursing and recorded PO intakes (severe), and mild-moderate muscle mass wasting (temples, deltoid, interosseous) Interventions: -recc considering enteral nutrition EER: 1700 kcals (25 kcals/kg per BMI) 55 g protein (.8 g protein per kg per renal+DM+PCM) Monitoring/Evaluations: f/u tomorrow Electronically Signed by: Marie Qureshi 12/11/24 15:22 Clinical Dietitian [address] [address]
[2024-12-11] MEDS: DEXTROSE 5%-0.45% NS 1,000 ML 75 ML IV (15:32)
--- NOTE | 2024-12-11 16:36 | OT.IPNOTE ---
Attempted to see pt for OT treatment. Pt asleep but would open eyes intermittently after calling her name. Pt agreed to have mouth moisturizer on her lips. Pt's HOB raised up more and pt back asleep again. To check on pt tomorrow.
--- NOTE | 2024-12-11 18:49 | PC.NURSE ---
Day shift: Patient somnolent - unable to stay awake for more than about 2 seconds. Unable to follow directions. Responds to loud voice and promptly goes back to sleep. Not eating or drinking. Unable to take her morning PO medications as she was too lethargic. This RN got patient to drink 3 sips of iced tea today - that was all her PO intake. Dark urine, sent for UA - came back negative. Totaly output less than 200mL this shift. Pt had one large BM. Notified MD Hartman x3 today regarding patient's increased somnolence and poor intake. ABGs ordered and done - all came back normal. Labs drawn - no critical values. Started patient on IV fluids for hydration. MD Hartman stated he thinks patient could be so somnolent from narcotics. Patient has not had any narcotics since 1700 yesterday. No behaviors/complaints of pain. Also notified MD of patient's hypertension. He stated no action needed at this time. Will continue to closely monitor.
[2024-12-11] MEDS: ASPIRIN EC 81 MG TABLET PO (20:36)
[2024-12-12] VITALS (10 sets, daily range): BP systolic 147–174; BP diastolic 56–98; PULSE 67–84; RESP 16–18; TEMP 36.4–36.9; O2SAT 92–98
[2024-12-12] MEDS: DEXTROSE 5%-0.45% NS 1,000 ML 75 ML IV ×2 (04:31→17:25)
[2024-12-12] MEDS: CEFEPIME 2 GM in SODIUM CHLORIDE 0.9% 100 ML IV ×2 (06:18→19:23)
[2024-12-12] MEDS: ALBUTEROL/IPRATROPIUM 3 ML AMPUL INH ×3 (08:26→19:29)
[2024-12-12] MEDS: DOCUSATE 100 MG CAPSULE PO ×2 (12:20→15:54)
[2024-12-12] MEDS: ASPIRIN EC 81 MG TABLET PO ×2 (12:21→20:21)
[2024-12-12] MEDS: CLOPIDOGREL 75 MG TABLET PO (12:21)
--- NOTE | 2024-12-12 13:19 | DIET.PN1 ---
Dietary Progress Note Assessment: Per nursing staff this morning, pt still had not eaten anything. Discussed pt in rounds. Hospitalist adjusting respiratory care and monitoring for improvements before starting feeds. If patient remains lethargic and unable to eat, recc starting enteral nutrition. Pt has had 6 days of no significant PO intakes. Was started on D5W yesterday. Ht: 162.56 cm Wt: 68.039 kg BMI: 25.7 UBW: Last BM: 12/11/24 (12/11/24 15:33) MNA: 7 Hao Score: 13 Diet: 12/10/24 Dinner General (Regular) Diet Diet Modifications: Food Texture: Level 7 - Regular Liquid Consistency: Level 0 - Thin Nutrition Percent Meal Consumed 0% 12/11/24 18:00 Labs: RBC 4.10 X10^6/uL (4.0-5.2) 12/11/24 12:44 Hgb 11.7 g/dL (12.0-16.0) L 12/11/24 12:44 Hct 35.2 % (36-46) L 12/11/24 12:44 Creatinine 1.47 mg/dL (0.52-1.04) H 12/11/24 12:44 Hemoglobin A1c 5.8 % (4.0-6.0) 12/01/24 14:00 Lactate 1.3 mmol/L (0.7-2.1) 12/07/24 19:00 Nutrition Diagnosis: Severe acute Protein Calorie Malnutrition related to inadequate oral intake secondary to vomiting, diarrhea and recent lethargy as evidenced by 13% weight loss within 3 months (severe), <50% of estimated energy needs for 5 weeks before admission per diet recall (severe) and <25% of estimated energy in last 5 days per nursing and recorded PO intakes (severe), and mild-moderate muscle mass wasting (temples, deltoid, interosseous) Interventions: Recc starting continuous enteral nutrition if pt remains unable to take in PO intakes as follows: -Continuous Jevity 1.2 starting at 10 mL/hr and increasing 10 mL q12h as tolerated until goal rate of 50 mL/hr. Flush 125 mL Q4H. Free water from feeds plus flushes meets fluids needs (30 mL/kg). Goal rate provides 1440 kcals (85% of EER) 67 g protein (100% EER) and 204 g carbs. -Monitor glucose closely. Pt w/ hx of DM2 and recent A1c 5.8%. Jevity 1.2 selected over Glucerna 1.5 to prevent providing excess protein based on pt's renal function. Will monitor and consider formula change as needed based on glucose. -Pt at risk for refeeding syndrome, draw phos, mg, and K+ before starting feeds and for the next 3 days after starting feeds. Hold initiation or increase in feeds until these electrolytes are supplemented per protocol or within normal limits. -Recc thiamine 100 mg for 5 days. EER: 1700 kcals (25 kcals/kg per BMI) 55-70 g protein (.8-1 g protein per kg per renal+DM+PCM) Monitoring/Evaluations: start of feeds, BG, tolerance, labs Electronically Signed by: Marie Qureshi 12/12/24 13:19 Clinical Dietitian [address] [id number]
--- NOTE | 2024-12-12 14:28 | CM.DPNOTE ---
DCP Continued: Reviewed EMR and team rounds for pt?s medical status. Per hospitalist, pt has end stage emphysema and plan of care is shifting which would require more days in the hospital. Currently, pt is expected to be cleared to discharge to a SNF on Sunday, 12/14 or Sunday, 12/15. DCP calls [facility] and spoke with Dennise, updated on pt status as stated above. Admissions still following pt transfer for possibly early next week; requests updates via weekend admissions cellphone (#[phone]) when available. Plan: Anticipating SNF discharge when medically appropriate - possibly Sunday, 12/14 or 12/15. CM Team will continue to follow for coordination of discharge plans. MARGIE Saenz
[2024-12-12] MEDS: AMLODIPINE 5 MG TABLET PO (15:57)
--- NOTE | 2024-12-12 17:25 | OT.IPNOTE ---
Pt still hard to arouse and briefly opens here eyes and then closes them.
[2024-12-12] MEDS: TRAMADOL 50 MG TABLET PO (17:26)
[2024-12-12] MEDS: BUDESONIDE 0.5 MG/2 ML NEB INH (19:29)
--- NOTE | 2024-12-12 20:20 | P.PN_ITS ---
Subjective Subjective Interval history: 69-year-old female initially admitted with a nondisplaced left femoral neck fracture now status post ORIF, CKD 3, severe COPD, unintentional weight loss of 20-40 lb 2 months ago, MDR E coli UTI, hospital-acquired pneumonia, and acute hypoxic respiratory failure Patient has been on high-flow oxygen since 12/05/2024. She was also found to have a multi-drug resistant E coli UTI on 12/01/2024 along with pneumonia on around 12/07/2024. Patient has remained very somnolent. She has eaten very little over the last 4- 5 days. Although she responds to her name for me, she does not interact much and quickly falls back asleep. Exam Vital Signs (past 8 hours): - 12/12/24 14:41 12/12/24 16:00 12/12/24 19:29 Temperature 98.0 F Pulse Rate 67 77 77 Respiratory Rate 16 18 16 Blood Pressure 174/58 H Pulse Oximetry 98 95 93 Oxygen Delivery Method High Flow Nasal Cannula High Flow Nasal Cannula Oxygen Flow Rate 2 3 2 Fraction of Inspired Oxygen 28 28 12/12/24 20:00 Temperature 97.6 F Pulse Rate 84 Respiratory Rate 18 Blood Pressure 166/92 H Pulse Oximetry 94 Oxygen Delivery Method Oxygen Flow Rate 3 Fraction of Inspired Oxygen Fraction of Inspired Oxygen 28 SaO2/FiO2 Ratio 332 Oxygen Delivery Method High Flow Nasal Cannula Oxygen Flow Rate 3 Narrative Exam Narrative: GEN: Somnolent middle-aged female, NAD HEENT:NC, Face symmetric CHEST: Respiratory excursions symmetric, diffusely diminished but CTAB CV: RRR, no M/R/G ABD: Soft, NT/ND, BT present in all 4 quadrants, no organomegaly or masses EXTR: warm, well perfused, no C/C/E SKIN: warm and dry, no rash NEURO: Somnolent but nonfocal Objective Labs 12/11/24 12:44 12/11/24 12:44 [facility] Social History household members: spouse Smoking Status: Former smoker alcohol intake: never Assessment & Plan Assessment & Plan narrative: 1. Acute hypoxic respiratory failure Suspect she has chronic hypoxia secondary to her severe COPD. I also suspect this has been exacerbated by over oxygenating and reducing her hypoxic respiratory drive. We will wean the high-flow today to a goal saturation of 88- 90%. She has fully treated pneumonia and her CT scan done on the showed resolution of her pneumonia. We will plan to discontinue cefepime. Will wean hopefully down to nasal cannula at 2-3 L and monitor closely. 2. Acute metabolic encephalopathy I suspect this is multifactorial secondary to prolonged hospital stay, hip fracture and repair, opioids, anesthesia, infections. Will plan to scheduled Tylenol, discontinue oxycodone and add as needed tramadol. Will also add Haldol as needed for delirium. She does appear to be waxing and waning with her mental status as last night it was noted that she was quite agitated. Infections have been fully treated. Antibiotics will be discontinued as noted. Will work on frequent reorientation. 3. Severe COPD Will add budesonide nebulizers as well as change DuoNebs to q.i.d.. 4. Unintentional weight loss Unclear etiology though certainly could be pulmonary cachexia. She was not seen in our hospital during that time period and is unable to provide any additional history 5. Hospital-acquired pneumonia and multidrug resistant UTI Fully treated. Cefepime is being discontinued Code status Full Prophylaxis On aspirin twice daily Disposition Pending Time-Based Coding :: [TOTAL MINUTES] spent with patient and on the chart (including review of chart, obtaining history, exam, reviewing outside data, placing orders, documenting exam and treatment plan, and counseling patient) on [DATE]. Quality VTE Deep Vein Thrombosis/Pulmonary Embolism Present on Admission: No
[2024-12-13] VITALS (7 sets, daily range): BP systolic 148–192; BP diastolic 60–89; PULSE 77–90; RESP 14–22; TEMP 36–37; O2SAT 90–96
[2024-12-13] MEDS: TRAMADOL 50 MG TABLET PO ×2 (02:02→12:47)
[2024-12-13] MEDS: ACETAMINOPHEN 325 MG TABLET 975 MG PO ×3 (02:02→20:18)
[2024-12-13] MEDS: AMLODIPINE 5 MG TABLET PO (08:59)
[2024-12-13] MEDS: CLOPIDOGREL 75 MG TABLET PO (08:59)
[2024-12-13] MEDS: ASPIRIN EC 81 MG TABLET PO ×2 (08:59→20:19)
[2024-12-13] MEDS: polyethylene glycoL 3350 17 GM POWD.PACK PO (08:59)
[2024-12-13] MEDS: DOCUSATE 100 MG CAPSULE PO (08:59)
[2024-12-13] MEDS: BUDESONIDE 0.5 MG/2 ML NEB INH ×2 (09:31→22:00)
[2024-12-13] MEDS: ALBUTEROL/IPRATROPIUM 3 ML AMPUL INH ×3 (09:31→22:00)
[2024-12-13 09:43] LABS: Add Manual Diff / Slide Review NO; Basophils Absolute Auto 0 /uL (0-100); Basophils Percent Auto 0.4 % (0-2); Eosinophils Absolute Auto 100 /uL (0-450); Eosinophils Percent Auto 2.3 % (2-4); Hematocrit 35.5 % (36-46); Hemoglobin 11.8 g/dL (12.0-16.0); Lymphocytes Absolute Auto 900 /uL (1100-4500); Lymphocytes Percent Auto 16.9 % (25-40); Mean Corpuscular HGB Conc 33.2 % (30-36); Mean Corpuscular Hemoglobin 28.4 PG (26-34); Mean Corpuscular Volume 85.7 fL (80-100); Monocytes Absolute Auto 600 /uL (0-900); Monocytes Percent Auto 11.1 % (3-14); Neutrophils Absolute Auto 3600 /uL (1500-7000); Neutrophils Percent Auto 69.3 % (50-75); Platelet Count 338 X10^3/uL (150-400); Red Blood Cell Count 4.14 X10^6/uL (4.0-5.2); Red Cell Distribution Width 14.7 % (11.6-14.8); White Blood Cell Count 5.3 X10^3/uL (4.5-11.0)
[2024-12-13 09:59] LABS: BUN Creatinine Ratio 21.2 (6-22); Blood Urea Nitrogen 22 mg/dL (7-17); Calcium 8.9 mg/dL (8.4-10.2); Carbon Dioxide 24 mmol/L (22-32); Chloride 106 mmol/L (98-107); Estimated Glomerular Filt Rate 59 mL/min (>60); Glucose 159 mg/dL (80-110); HEMOLYSIS 20 (0-50); Potassium 3.6 mmol/L (3.4-5.1); Sodium 137 mmol/L (137-145)
--- NOTE | 2024-12-13 18:40 | PM.PN.1 ---
Subjective Subjective Interval history: 69-year-old female initially admitted with a nondisplaced left femoral neck fracture now status post ORIF, CKD 3, severe COPD, unintentional weight loss of 20-40 lb 2 months ago, MDR E coli UTI, hospital-acquired pneumonia, and acute hypoxic respiratory failure Patient was on high-flow oxygen from 12/05/2024. She was also found to have a multi-drug resistant E coli UTI on 12/01/2024 along with pneumonia on around 12/07/2024. She ate very little over the last 4-5 days. I suspected that she had decreased hypoxic respiratory drive related to high-flow oxygen and that was contributing to her encephalopathy. Yesterday I did write orders to wean her off of high-flow to nasal cannula oxygen. She was successfully weaned down to 2-3 L of supplemental oxygen with saturations maintaining in the 90s. Over the course of the day she gradually aroused more. Additionally, her medications were changed and she was placed on scheduled Tylenol, as needed tramadol, oxycodone was discontinued. Haloperidol was written for as needed agitation for delirium. Today, patient reports she is doing better overall. She complains about how thin her hands have become and states they do not even look like her hands due to have small they are. She states she is happy to be more awake and does not have much recollection of the last couple of days. She denies any shortness a breath. She is wondering when she can start getting up and moving more. She believes she is supposed to be nonweightbearing on her repaired hip. Exam Vital Signs (past 8 hours): - 12/13/24 14:14 12/13/24 16:00 Temperature 97.7 F Pulse Rate 82 88 Respiratory Rate 20 20 Blood Pressure 171/67 H Pulse Oximetry 94 93 Oxygen Delivery Method Nasal Cannula Oxygen Flow Rate 2 3 Fraction of Inspired Oxygen 28 SaO2/FiO2 Ratio 332 Oxygen Delivery Method Nasal Cannula Oxygen Flow Rate 3 Narrative Exam Narrative: GEN: Pleasant, middle-aged female, NAD HEENT:NC, Face symmetric CHEST: Respiratory excursions symmetric, diffusely diminished but CTAB CV: RRR, no M/R/G ABD: Soft, NT/ND, BT present in all 4 quadrants, no organomegaly or masses EXTR: warm, well perfused, no C/C/E SKIN: warm and dry, no rash NEURO: Alert and oriented x 2-3, nonfocal Objective Labs 12/13/24 08:25 12/13/24 08:25 Labs: Laboratory Results - last 24 hr 12/13/24 08:25 WBC 5.3 RBC 4.14 Hgb 11.8 L Hct 35.5 L MCV 85.7 MCH 28.4 MCHC 33.2 RDW 14.7 Plt Count 338 Neut % (Auto) 69.3 Lymph % (Auto) 16.9 L [place] % (Auto) 11.1 Eos % (Auto) 2.3 Baso % (Auto) 0.4 Neut # (Auto) 3600 Lymph # (Auto) 900 L [place] # (Auto) 600 Eos # (Auto) 100 Baso # (Auto) 0 Sodium 137 Potassium 3.6 Chloride 106 Carbon Dioxide 24 BUN 22 H Creatinine 1.04 Estimated GFR 59 L BUN/Creatinine Ratio 21.2 Glucose 159 H Calcium 8.9 PFSH Social History household members: spouse Smoking Status: Former smoker alcohol intake: never Assessment & Plan Assessment & Plan narrative: 1. Acute hypoxic respiratory failure Suspect she has chronic hypoxia secondary to her severe COPD. She was successfully weaned down to 2-3 L of supplemental oxygen yesterday. Overall, much improved. 2. Acute metabolic encephalopathy I suspect this is multifactorial secondary to prolonged hospital stay, hip fracture and repair, opioids, anesthesia, infections. Continue scheduled Tylenol and as needed tramadol. Haldol was ordered as needed for delirium, but she did not require any. She is significantly improved today, increasing the likelihood that her symptoms were related to impaired hypoxic respiratory drive from too much supplemental oxygen. 3. Severe COPD Continue budesonide nebulizers and DuoNebs to q.i.d.. 4. Unintentional weight loss Unclear etiology though certainly could be pulmonary cachexia. She was not seen in our hospital during that time period and is unable to provide any additional history 5. Hospital-acquired pneumonia and multidrug resistant UTI Fully treated. Cefepime was discontinued yesterday Code status Full Prophylaxis On aspirin twice daily Disposition Encouraged discharge planning to work towards transitioning to intermediate. [facility] [facility] accepted her. Will have therapy work with her to assess her present mobility level Time-Based Coding :: [TOTAL MINUTES] spent with patient and on the chart (including review of chart, obtaining history, exam, reviewing outside data, placing orders, documenting exam and treatment plan, and counseling patient) on [DATE]. Quality VTE Deep Vein Thrombosis/Pulmonary Embolism Present on Admission: No
[2024-12-14] VITALS (10 sets, daily range): BP systolic 145–169; BP diastolic 53–67; PULSE 74–99; RESP 16–19; TEMP 36–36.2; O2SAT 90–96
[2024-12-14 06:20] LABS: Add Manual Diff / Slide Review NO; Basophils Absolute Auto 0 /uL (0-100); Basophils Percent Auto 0.4 % (0-2); Eosinophils Absolute Auto 100 /uL (0-450); Hematocrit 34.7 % (36-46); Hemoglobin 11.6 g/dL (12.0-16.0); Lymphocytes Absolute Auto 1200 /uL (1100-4500); Lymphocytes Percent Auto 19.1 % (25-40); Mean Corpuscular HGB Conc 33.3 % (30-36); Mean Corpuscular Hemoglobin 28.5 PG (26-34); Mean Corpuscular Volume 85.4 fL (80-100); Monocytes Absolute Auto 700 /uL (0-900); Neutrophils Absolute Auto 4100 /uL (1500-7000); Neutrophils Percent Auto 67.5 % (50-75); Platelet Count 359 X10^3/uL (150-400); Red Blood Cell Count 4.07 X10^6/uL (4.0-5.2); Red Cell Distribution Width 14.5 % (11.6-14.8); White Blood Cell Count 6.1 X10^3/uL (4.5-11.0)
[2024-12-14 06:32] LABS: BUN Creatinine Ratio 19.7 (6-22); Blood Urea Nitrogen 23 mg/dL (7-17); Calcium 9.2 mg/dL (8.4-10.2); Carbon Dioxide 25 mmol/L (22-32); Chloride 106 mmol/L (98-107); Estimated Glomerular Filt Rate 51 mL/min (>60); Glucose 149 mg/dL (80-110); HEMOLYSIS < 15 (0-50); Sodium 137 mmol/L (137-145)
--- NOTE | 2024-12-14 07:39 | PM.PN.1 ---
Subjective Subjective Interval history: Summary: Patient was on high-flow oxygen from 12/05/2024. She was also found to have a multi-drug resistant E coli UTI on 12/01/2024 along with pneumonia on around 12/07/2024. She ate very little over the last 4-5 days. I suspected that she had decreased hypoxic respiratory drive related to high-flow oxygen and that was contributing to her encephalopathy. Yesterday I did write orders to wean her off of high-flow to nasal cannula oxygen. She was successfully weaned down to 2-3 L of supplemental oxygen with saturations maintaining in the 90s. Over the course of the day she gradually aroused more. Additionally, her medications were changed and she was placed on scheduled Tylenol, as needed tramadol, oxycodone was discontinued. Haloperidol was written for as needed agitation for delirium. Today, patient reports she is doing better overall. She complains about how thin her hands have become and states they do not even look like her hands due to have small they are. She states she is happy to be more awake and does not have much recollection of the last couple of days. She denies any shortness a breath. She is wondering when she can start getting up and moving more. She believes she is supposed to be nonweightbearing on her repaired hip. S: she was very fatigued but denies any dyspnea or confusion. She knows it is 2024 and that she was in the hospital. She was doing okay with regard to her pain control. She did work with therapy. Exam Vital Signs (past 8 hours): - 12/14/24 00:36 12/14/24 04:00 Temperature 96.8 F L 97.1 F L Pulse Rate 74 77 Respiratory Rate 16 18 Blood Pressure 145/54 H 149/56 H Pulse Oximetry 90 L 93 Oxygen Flow Rate 3 3 Fraction of Inspired Oxygen 28 SaO2/FiO2 Ratio 332 Oxygen Delivery Method Nasal Cannula Oxygen Flow Rate 3 Narrative Exam Narrative: NAD, alert and oriented. Fluent speech. Until L of oxygen, somewhat lethargic but appropriate. Lungs are clear, normal rate and effort. Heart is regular, no murmur gallop or rub. Abdomen is soft, non distended. Extremities are free of edema. Objective Labs 12/14/24 05:20 12/14/24 05:20 Labs: Laboratory Results - last 24 hr 12/13/24 12/14/24 08:25 05:20 WBC 5.3 6.1 RBC 4.14 4.07 Hgb 11.8 L 11.6 L Hct 35.5 L 34.7 L MCV 85.7 85.4 MCH 28.4 28.5 MCHC 33.2 33.3 RDW 14.7 14.5 Plt Count 338 359 Neut % (Auto) 69.3 67.5 Lymph % (Auto) 16.9 L 19.1 L [place] % (Auto) 11.1 11.0 Eos % (Auto) 2.3 2.0 Baso % (Auto) 0.4 0.4 Neut # (Auto) 3600 4100 Lymph # (Auto) 900 L 1200 [place] # (Auto) 600 700 Eos # (Auto) 100 100 Baso # (Auto) 0 0 Sodium 137 137 Potassium 3.6 4.0 Chloride 106 106 Carbon Dioxide 24 25 BUN 22 H 23 H Creatinine 1.04 1.17 H Estimated GFR 59 L 51 L BUN/Creatinine Ratio 21.2 19.7 Glucose 159 H 149 H Calcium 8.9 9.2 PFSH Social History household members: spouse Smoking Status: Former smoker alcohol intake: never Assessment & Plan Assessment & Plan narrative: 1. Acute hypoxic respiratory failure On chronic hypoxic respiratory failure, new and improved. Suspect she has chronic hypoxia secondary to her severe COPD. She was successfully weaned down to 2-3 L of supplemental oxygen yesterday. Overall, much improved. 2. Acute metabolic encephalopathy , new and improving. I suspect this is multifactorial secondary to prolonged hospital stay, hip fracture and repair, opioids, anesthesia, infections. Continue scheduled Tylenol and as needed tramadol. Haldol was ordered as needed for delirium, but she did not require any. She is significantly improved today, increasing the likelihood that her symptoms were related to impaired hypoxic respiratory drive from too much supplemental oxygen. 3. Severe COPD , active and stable. Continue budesonide nebulizers and DuoNebs to q.i.d.. 4. Unintentional weight loss Unclear etiology though certainly could be pulmonary cachexia. She was not seen in our hospital during that time period and is unable to provide any additional history 5. Hospital-acquired pneumonia and multidrug resistant UTI , new and improved. Fully treated. Cefepime was completed. PLAN: -continue PT/OT -SNF when able. Code status Full Prophylaxis On aspirin twice daily Time-Based Coding :: [TOTAL MINUTES] spent with patient and on the chart (including review of chart, obtaining history, exam, reviewing outside data, placing orders, documenting exam and treatment plan, and counseling patient) on [DATE]. Quality VTE Deep Vein Thrombosis/Pulmonary Embolism Present on Admission: No
[2024-12-14] MEDS: ALBUTEROL/IPRATROPIUM 3 ML AMPUL INH ×4 (08:57→20:01)
[2024-12-14] MEDS: BUDESONIDE 0.5 MG/2 ML NEB INH ×2 (08:57→20:01)
[2024-12-14] MEDS: CLOPIDOGREL 75 MG TABLET PO (09:33)
[2024-12-14] MEDS: DOCUSATE 100 MG CAPSULE PO ×2 (09:33→20:19)
[2024-12-14] MEDS: TRAMADOL 50 MG TABLET PO (09:33)
[2024-12-14] MEDS: ASPIRIN EC 81 MG TABLET PO ×2 (09:33→20:19)
[2024-12-14] MEDS: AMLODIPINE 5 MG TABLET 10 MG PO (09:34)
--- NOTE | 2024-12-14 10:20 | PT.IPTN ---
Current Diagnoses Fracture of unspecified part of neck of left femur, initial encounter for closed fracture (12/01/24) Fracture of unspecified part of neck of unspecified femur, initial encounter for closed fracture (12/01/24) Surgery Performed Operation Date: 12/02/24 12:00 <No data on this case meets the specified criteria> Operation Date: 12/03/24 17:00 Actual Procedures p ORIF Hip/Cannulated Screws(Left) - Jae Victor MD Physical Therapy Treatment Note M2 PT-IP Current Condition Start: 12/04/24 11:33 Freq: NEEDED Status: Active Protocol: Document 12/04/24 11:21 DLM (Rec: 12/04/24 11:56 DLM [id number]) Physical Therapy Current Condition Current Condition Evaluation Date 12/04/24 Treatment Diagnosis left hip ORIF 12/03/24 Onset Date 12/01/24 M3 PT-IP Subjective Start: 12/04/24 11:33 Freq: NEEDED Status: Active Protocol: Document 12/14/24 09:57 KS (Rec: 12/14/24 12:02 KS [id number]) Subjective Physical Therapy Visit Type Type Treatment Note Visit Start Time 09:57 Visit Stop Time 10:20 Notes 3L O2 w/ mobility. Number of MANAGER INTEL Visits 2 Physical Therapy Visit Comments Patient Comments Pt agreeable to PT. M4 PT-IP Mobility and Gait Start: 12/04/24 11:33 Freq: NEEDED Status: Active Protocol: Document 12/14/24 09:57 KS (Rec: 12/14/24 12:02 KS [id number]) PT-Bed Mobility Assessment Supine to Sit Supine to Sit Minimal Assistance,1 Person Assistance,Head of Bed Elevated Sit to Supine Sit to Supine Minimal Assistance,1 Person Assistance,Head of Bed Elevated Scooting Scooting to Edge of Bed Contact Guard Assistance PT-Transfer Assessment Sit to and From Stand Sit to and from Stand Contact Guard Assistance,1 Person Assistance,Use of Upper Extremities Equipment Transfer Assistive Device Gait Belt,Front Wheeled Walker Transfers Transfer Destination Bed Transfer Technique Lateral stepping Transfer Ability Level of Assist Minimal Assistance,1 Person Assistance,Use of Upper Extremities Comments Mobility Comments Pt in bed upon arriva and agreeable to work w/ PT. Pt on 2L O2 at reast in low 90s. Able to complete ankle pumps, quad sets, glute sets, and heel slides, as well as SLR in bed. Min A for sup<>sit, CGA for scooting EOB. Pt desat to mid 80s with mobility and was increased to 3L. Pt sit<>stand w/ FWW CGA and performed some marching in place followed by 5 ft lateral steps towards HOB. Pt reports being exhausted and requests to lie back down. Min A for sit<>sup. Left w/ FACILITIES LOCATOR attending. Gait Assessment Gait Gait Assistance Required: Contact Guard Assist,1 Person Assist Distance (Feet) 5 Assistive Devices Assistive Device Gait Belt,Front Wheeled Walker Gait Deviations General Gait Pattern Antalgic,Decreased Stride Length,Step-to Gait Factors Limiting Gait Function Factors Limiting Gait Function Decreased Activity Tolerance, Pain,Poor Balance Comments Gait Comments Pt limited to short distances by very low endurance. PT-Balance Assessment Sitting Balance and Reactions Static Sitting Balance Ability Normal Dynamic Sitting Balance Ability Good Standing Balance and Reactions Static Standing Balance Ability Fair Dynamic Standing Balance Ability Fair Device Used RW M5 PT-IP Objective Assessments Start: 12/04/24 11:33 Freq: NEEDED Status: Active Protocol: Document 12/06/24 11:11 DLM (Rec: 12/06/24 11:33 DLM [id number]) Orientation Orientation/Cognition Level of Alertness Lethargic Comments no verbalizations today, lethargic appears to have pain in left LE with movement of her hip but she can not rate nor describe it, was managed with gradual progression of assisted movements Muscle Tone Muscle Tone WNL Yes M6 PT-IP Treatment Start: 12/04/24 11:33 Freq: NEEDED Status: Active Protocol: Document 12/14/24 09:57 KS (Rec: 12/14/24 12:02 IL [id number]) Physical Therapy Treatment Exercises Exercises Ankle Pumps,Gluteal Sets,Quad Sets,Heel Slides,Straight Leg Raises M7 PT-IP Assessment and Plan Start: 12/04/24 11:33 Freq: NEEDED Status: Active Protocol: Document 12/14/24 09:57 KS (Rec: 12/14/24 12:02 IL [id number]) PT Summary Assessment and Plan Potential Rehabilitation Potential Fair Summary Impairments Pain,ROM,Strength,Balance, Sensation,Bed Mobility, Transfers,Gait,Activity Tolerance Progress Towards Goals Slow Progress due to Activity Tolerance Assessment Summary Pt showing progress with mobility, needing Min A for bed mobility and CGA for sit<> Stand w/ FWW. Able to tolerate LE exercises and short distance ambulation howver remains limited by low tolerance for activity and will require SNF to improve endurance and functional mobility. Goals Bed Mobility Goal Independent Transfer Goal Independent Gait Goal Standby Assistance,Front Wheel Walker Gait Distance 75 Other Goals up/down one step with fWW and SBA. Days to Meet Goals 7 Frequency of Treatment Frequency Of Treatment Once a Day Treatment Plan Physical Therapy Treatment Plan Bed Mobility Training,Transfer Training,Gait Training, Therapeutic Exercise,Balance Retraining,Post Op Education, Discharge Planning,Hot or Cold Pack,Neuromuscular Re-ed, Coordination Retraining,Manual Therapy Precautions Other Precautions Fall risk, heated high flow Weight Bearing Status Weight Bearing Status Weight Bear as Tolerated Allowed Weight Bearing Amount (enter % left LE with FWW or #) (%) Recommendations To Nursing Amount of Assist Needed 1 Person Assist Discharge Recommendations PT Discharge Recommendations SNF Rehab Transportation Needs at Discharge Private Vehicle,Wheelchair/ Cabulance - PT assist x1
--- NOTE | 2024-12-14 10:35 | CM.DPNOTE ---
Addendum entered by KENNY Busch 12/14/24 15:28: From Yulissa KEN at [facility] with SNF auth #[id number] and will do single case agreement with [facility] updated RN and provider SL Addendum entered by KENNY Busch 12/14/24 15:04: no response from [facility] as of 1500. Spoke with [facility] central line Kaitlynn, she will reach out to Yulissa Marinelli CM for updates on SNF auth. SL Original Note: DCP note INSTRUCTOR [employer] reviewed EMR Per provider in morning rounds, pt doing much better overall. PT to work with her more today. [place] [facility] auth needed, KENNY lvm with [facility] Yulissa Colby, will send PT note once finalized. KENNY emailed Dennise at [facility] with updates. Plan: Anticipating SNF discharge to [facility] when medically appropriate - possibly Sunday, 12/14 or Sunday, 12/15, pending [facility] auth. PASRR previously completed. CM team will continue to follow closely KENNY Busch
--- NOTE | 2024-12-14 13:51 | PC.NURSE ---
Day shift note: Awake, alert and cooperative. Remain on O2 3L via NC 93%, unable to wean O2. Desats to mid 80's with activity. Encouraging cough and deep breathing and IS use while awake. SCDs in place. Sporadic cough noted, non productive. Tramadol PRN, adequate response. UP OOB to bedside with therapy this shift. Will encourage sitting in chair for dinner. Call light within reach. Aquacel to surgical site CDI
[2024-12-14] MEDS: ACETAMINOPHEN 325 MG TABLET 975 MG PO (20:19)
[2024-12-14] MEDS: SENNOSIDES 8.6 MG TABLET 17.2 MG PO (20:19)
[2024-12-15] VITALS (10 sets, daily range): BP systolic 146–164; BP diastolic 55–62; PULSE 78–95; RESP 16–20; TEMP 36.1–37.1; O2SAT 91–98
[2024-12-15] MEDS: CLOPIDOGREL 75 MG TABLET PO (09:10)
[2024-12-15] MEDS: ASPIRIN EC 81 MG TABLET PO ×2 (09:10→20:17)
[2024-12-15] MEDS: DOCUSATE 100 MG CAPSULE PO (09:10)
[2024-12-15] MEDS: AMLODIPINE 5 MG TABLET 10 MG PO (09:10)
[2024-12-15] MEDS: BUDESONIDE 0.5 MG/2 ML NEB INH ×2 (09:30→19:41)
[2024-12-15] MEDS: ALBUTEROL/IPRATROPIUM 3 ML AMPUL INH ×4 (09:30→19:41)
--- NOTE | 2024-12-15 11:19 | PM.DS.1 ---
History of Present Illness History of Present Illness Chief complaint: Fall at 0700, Left hip pain Narrative: From H&P: 69-year-old female with a history of COPD type 2 diabetes obesity chronic kidney disease had a ground level fall this morning late on the hard floor waiting for the pain to subside which did not. Eventually patient was brought to the emergency department for an evaluation. Findings in the ER significant for left femoral neck fracture nondisplaced. Case was discussed with anesthesia and Orthopedic surgery the consensus was to get a CT to evaluate to see if it requires surgery or could be managed conservatively. Discharge Providers Provider Date of admission: 12/01/24 16:43 Discharge Date: 12/15/24 Primary care physician: Alejandrina Mojica PA-C Consults: 12/02/24 06:00 Consult to Orthopedic Surgery Routine Comment: Consulting Provider: Jae Victor Reason for consultation: L femur fracture - per MD Bryant notes/report Has provider been notified: Yes 12/03/24 19:01 Consult to Discharge Planning Routine Comment: Consult to Occupational Therapy Evaluate & Treat Comment: Physician Instructions: Evaluate and treat Consult to Physical Therapy Evaluate & Treat Comment: Physician Instructions: Evaluate and Treat 12/07/24 08:01 Consult to Dietitian, Adult Routine Comment: Reason For Exam: Recent weight loss, lack of appetite Discharge provider: Gilberto Pop MD Summary Hospital Course Discharge Diagnosis: 1. Acute hypoxic respiratory failure On chronic hypoxic respiratory failure, new and improved. Suspect she has chronic hypoxia secondary to her severe COPD. She was successfully weaned down to 2-3 L of supplemental oxygen yesterday. Overall, much improved. 2. Acute metabolic encephalopathy , new and improving. Suspect this is multifactorial secondary to prolonged hospital stay, hip fracture and repair, opioids, anesthesia, infections. Continue scheduled Tylenol and as needed tramadol. Haldol was ordered as needed for delirium, but she did not require any. She is significantly improved today, increasing the likelihood that her symptoms were related to impaired hypoxic respiratory drive from too much supplemental oxygen. 3. Severe COPD , active and stable. Continue budesonide nebulizers and DuoNebs to q.i.d.. 4. Unintentional weight loss Unclear etiology though certainly could be pulmonary cachexia. She was not seen in our hospital during that time period and is unable to provide any additional history 5. Possible aspiration pneumonia, new and resolved. Hospital Course: She was a 69-year-old female with history of COPD and diabetes as well as chronic kidney disease. She had a ground level fall and resulting left femoral neck fracture. She was noted to be hypotensive and have a loud systolic murmur in the OR in the case was stopped. She was evaluated with echo which was negative for critical aortic stenosis and her pressures improved with IV fluids. She underwent an operative repair of the hip without complication and her postoperative course was complicated by acute hypoxic respiratory failure and severe altered mental status. She was treated for pneumonia and evaluated multiple times for hypercarbia but never had evidence of this. She required high-flow for many days for hypoxemia. Multiple PaO2 is were in the 40s on her nasal cannula oxygen. Ultimately she was able to wean off from high-flow oxygen and had no further indications of infection. A CTA was negative for pulmonary embolism or infiltrate. She was treated for possible pneumonia with a full course of antibiotics. It was unclear if this was consistent with aspiration or a hospital acquired pneumonia. Again imaging did not verify infiltrate. Ultimately she was felt to be stable for transfer to intermediate facility for ongoing rehabilitation efforts. Status at Discharge Cognitive/behavioral status at discharge: oriented Functional status at discharge: bed bound Overall status at discharge: patient is progressing back to baseline Time Spent with Patient Time spent: Greater than 30 minutes Exam Vital Signs (past 8 hours): - 12/15/24 04:00 12/15/24 08:00 12/15/24 09:32 Temperature 98.8 F 96.9 F L Pulse Rate 78 79 78 Respiratory Rate 19 19 16 Blood Pressure 164/59 H 164/58 H Pulse Oximetry 94 91 94 Oxygen Flow Rate 3 3 4 Fraction of Inspired Oxygen 32 SaO2/FiO2 Ratio 300 Oxygen Delivery Method Nasal Cannula Oxygen Flow Rate 4 Narrative Exam Narrative: NAD, alert and oriented. Fluent speech. Soft spoken. Lungs are clear, normal rate and effort. Heart is regular, loud systolic murmur and no gallop or rub. Abdomen is soft, non distended. Extremities are free of edema. Objective Imaging Multiple studies:: Radiologist's impression: Chest CTA: 1. No CT evidence of pulmonary embolism to the segmental level. 2. Severe emphysema. 3. Likely hepatic steatosis. Chest x-ray: Emphysema. Otherwise, no acute cardiothoracic process. Hip x-ray: Intraoperative views during left hip ORIF. Hardware appears in appropriate position. Echo: The ejection fraction is estimated to be 60-65%. Diastolic function could not be accurately assessed due to confounding valvular disease. The right ventricle is normal in size and function. There is mild mitral stenosis. Pulmonary artery pressures cannot be estimated because of the lack of a measurable TR jet velocity but the IVC suggests a CVP of around [address]: Labs 12/14/24 05:20 12/14/24 05:20 [facility] Social History household members: spouse Smoking Status: Former smoker alcohol intake: never Discharge Assessment & Plan Assessment and Plan Assessment: 1. Acute hypoxic respiratory failure On chronic hypoxic respiratory failure, new and improved. Suspect she has chronic hypoxia secondary to her severe COPD. She was successfully weaned down to 2-3 L of supplemental oxygen yesterday. Overall, much improved. 2. Acute metabolic encephalopathy , new and improving. Suspect this is multifactorial secondary to prolonged hospital stay, hip fracture and repair, opioids, anesthesia, infections. Continue scheduled Tylenol and as needed tramadol. Haldol was ordered as needed for delirium, but she did not require any. She is significantly improved today, increasing the likelihood that her symptoms were related to impaired hypoxic respiratory drive from too much supplemental oxygen. 3. Severe COPD , active and stable. Continue budesonide nebulizers and DuoNebs to q.i.d.. 4. Unintentional weight loss Unclear etiology though certainly could be pulmonary cachexia. She was not seen in our hospital during that time period and is unable to provide any additional history 5. Possible aspiration pneumonia, new and resolved. Plan of Treatment: Discharge to [facility] intermediate facility for rehabilitative efforts. She is on 2 L of oxygen. Discharge Plan Discharge Plan Patient Disposition: er Inpatient Rehab Transfer to: [facility] Other facility: SNF Provider. Provider Discharge Comment: Stable for discharge to intermediate facility for rehabilitative efforts. Discharge orders & Medications Discharge Orders: Discharge (Order); Ordered 12/15/24 Ordered By: Gilberto Pop Prescriptions: New acetaminophen 325 mg Tablet 650 mg PO Q6H Qty: 1 0RF ipratropium-albuterol 0.5 mg-3 mg(2.5 mg base)/3 mL Solution For Nebulization 3 ml INH Q1H PRN (Reason: Shortness Of Breath) Qty: 30 0RF bisacodyl 10 mg Suppository 10 mg DC DAILY PRN (Reason: Constipation) Qty: 12 0RF docusate sodium 100 mg Capsule 100 mg PO BID Qty: 1 0RF polyethylene glycol 3350 17 gram Powder In Packet 17 g PO DAILY Qty: 14 0RF sennosides [senna] 8.6 mg Tablet 17.2 mg PO BEDTIME Qty: 1 0RF ipratropium-albuterol 0.5 mg-3 mg(2.5 mg base)/3 mL Solution For Nebulization 3 ml INH [id number] Qty: 10 0RF oxycodone 5 mg capsule 5 mg PO Q8H PRN (Reason: pain) Qty: 14 0RF Continued clopidogrel 75 mg tablet 75 mg PO DAILY Medication counseling provided by Pharmacist: No Follow up/Referrals: Matt Owusu ARNP [Non-Staff] - 12/30/24 8:40 am (APPT:12/30 @ 8:40 am with Jose R PITT please arrive 15 min prior to your scheduled appointment time ) Jae Victor MD [Physician] - 1 Week Alejandrina Mojica PA-C [Primary Care Provider] - Discharge Health Status Multidrug resistant organism: No MDRO Diet/Activity/Treatments Diet: Regular and Carb-consistent/Diabetic Food texture: Regular Activity: As tolerated. Oxygen: 2LNC [facility] Reason for rehabilitation: Post-operative therapy Rehab type: Physical therapy and Occupational therapy Restrictions to mobility: WBAT Visit Report/Discharge Packet Instructions: DI for Open Reduction Internal Fixation Surgery Discharge Data Primary Care Provider: Alejandrina Mojica VTE Deep Vein Thrombosis/Pulmonary Embolism Present on Admission: No
--- NOTE | 2024-12-15 12:08 | DIET.PN1 ---
Dietary Progress Note Assessment: f/u Pt with improved PO intakes over the weekend, but per nursing staff this morning last 2 days has just been doing liquids/protein smoothies. Pt sleeping this morning with half finished protein smoothie in front of her. Coordination of care with unit host to trial softer foods with meals again. Ht: 162.56 cm Wt: 68.039 kg BMI: 25.7 Last BM: 12/13/24 (12/13/24 18:00) MNA: 7 Hao Score: 19 Diet: 12/10/24 Dinner General (Regular) Diet Diet Modifications: Food Texture: Level 7 - Regular Liquid Consistency: Level 0 - Thin Nutrition Percent Meal Consumed 50% 12/13/24 18:00 Labs: RBC 4.07 X10^6/uL (4.0-5.2) 12/14/24 05:20 Hgb 11.6 g/dL (12.0-16.0) L 12/14/24 05:20 Hct 34.7 % (36-46) L 12/14/24 05:20 Creatinine 1.17 mg/dL (0.52-1.04) H 12/14/24 05:20 Hemoglobin A1c 5.8 % (4.0-6.0) 12/01/24 14:00 Lactate 1.3 mmol/L (0.7-2.1) 12/07/24 19:00 Electronically Signed by: Marie Qureshi 12/15/24 12:08 Clinical Dietitian [address] [address]
[2024-12-15 12:31] LABS: COVID19 -Nasal RAPID POSITIVE (Negative)
--- NOTE | 2024-12-15 12:56 | PC.NURSE ---
Covid test ordered prior to d/c to [facility]. COVID test came back positive. Discharge cancelled. MD and CM notified. Isolation cart placed at Pt's door. Pt notified.
--- NOTE | 2024-12-15 13:10 | PM.PN.1 ---
Subjective Subjective Interval history: Summary: a Covid screen today for SNF was POSITIVE. Exam Vital Signs (past 8 hours): - 12/15/24 08:00 12/15/24 09:32 12/15/24 12:19 Temperature 96.9 F L Pulse Rate 79 78 Respiratory Rate 19 16 Blood Pressure 164/58 H Pulse Oximetry 91 94 92 Oxygen Delivery Method Oxygen Flow Rate 3 4 2 Fraction of Inspired Oxygen 12/15/24 12:47 Temperature Pulse Rate 95 H Respiratory Rate 18 Blood Pressure Pulse Oximetry 93 Oxygen Delivery Method Nasal Cannula Oxygen Flow Rate 2 Fraction of Inspired Oxygen 28 Fraction of Inspired Oxygen 28 SaO2/FiO2 Ratio 332 Oxygen Delivery Method Nasal Cannula Oxygen Flow Rate 2 Narrative Exam Narrative: NAD, alert and oriented. Fluent speech. Lethargic. Lungs are clear, normal rate and effort. Heart is regular, no murmur gallop or rub. Abdomen is soft, non distended. Extremities are free of edema. Objective Labs 12/14/24 05:20 12/14/24 05:20 Labs: Laboratory Results - last 24 hr 12/15/24 11:55 SARS-CoV-2 (PCR) Positive H [facility] Social History household members: spouse Smoking Status: Former smoker alcohol intake: never Assessment & Plan Assessment & Plan narrative: 1. COVID POSITIVE (No URI Sx), New and active. 2. Acute hypoxic respiratory failure On chronic hypoxic respiratory failure, new and improved. Suspect she has chronic hypoxia secondary to her severe COPD. She was successfully weaned down to 2-3 L of supplemental oxygen yesterday. Overall, much improved. 3. Acute metabolic encephalopathy , new and improving. I suspect this is multifactorial secondary to prolonged hospital stay, hip fracture and repair, opioids, anesthesia, infections. Continue scheduled Tylenol and as needed tramadol. Haldol was ordered as needed for delirium, but she did not require any. She is significantly improved today, increasing the likelihood that her symptoms were related to impaired hypoxic respiratory drive from too much supplemental oxygen. 4. Severe COPD , active and stable. Continue budesonide nebulizers and DuoNebs to q.i.d.. 5. Unintentional weight loss Unclear etiology though certainly could be pulmonary cachexia. She was not seen in our hospital during that time period and is unable to provide any additional history 6. Hospital-acquired pneumonia and multidrug resistant UTI , new and improved. Fully treated. Cefepime was completed. PLAN: -Cancel DC to SNF -Add COVID Isolation. -Continue all other current cares. Time-Based Coding :: [TOTAL MINUTES] spent with patient and on the chart (including review of chart, obtaining history, exam, reviewing outside data, placing orders, documenting exam and treatment plan, and counseling patient) on [DATE]. Quality VTE Deep Vein Thrombosis/Pulmonary Embolism Present on Admission: No
--- NOTE | 2024-12-15 13:20 | CM.DPC ---
Addendum entered by KENNY Garcia 12/15/24 15:07: ADD: [facility] admissions confirms that they have an iso room and can accept pt tomorrow 12/16/24 but do not have transportation. WILBER met bedside with pt and updated her on [facility] not able to accept now that she is COVID+ but that [facility] can accept tomorrow Tues and pt agreeable. SW discussed transport option of maybe a friend for private vehicle vs BLS transport due to her oxygen and COVID precautions. Pt preference is stretcher transport and SW explained that cannot guarantee it will be covered by insurance and pt acknowledged understanding and pt preference remains stretcher. SW called [facility] and scheduled transport for tomorrow 12/16 at 1100 and BLS form completed but needs MD signature. Updated managing broker and RN. Per patient request, WILBER called [facility] and updated via voicemail. BF Addendum entered by KENNY Garcia 12/15/24 13:45: ADD: Per [facility], they likely will have an ISO room available by the end of the week for the patient and will try for sooner and will continue to follow. BF Original Note: DCP SNF Planning: Per MD, pt is medically stable to d/c to SNF on 3LO2 due to her baseline interstitial lung disease and discharge orders placed. [facility] confirmed that [facility] can accept today and provide transport around 1330 and already confirmed with [facility] that they will do one time auth. [facility] asked for COVID swab prior to d/c as they just had a COVID outbreak in their building that has resolved. RN completed COVID swab and returned COVID+. [facility] RN confirms that they cannot accept the pt until 10 days out from initial COVID swab today. WILBER made additional SNF referrals to [facility], [facility], [facility], [facility] to determine if another SNF can accept in the next couple days. PASRR previously completed. KENNY Garcia
--- NOTE | 2024-12-15 15:41 | PT-IP ANOTE ---
Pt is now COVID positive. Checked in on pt who is finishing shower with OT and unavailable for PT. Con't PT efforts next date.
--- NOTE | 2024-12-15 15:56 | OT.IP.TRT ---
Current Diagnoses Fracture of unspecified part of neck of left femur, initial encounter for closed fracture (12/01/24) Fracture of unspecified part of neck of unspecified femur, initial encounter for closed fracture (12/01/24) Surgery Performed Operation Date: 12/02/24 12:00 <No data on this case meets the specified criteria> Operation Date: 12/03/24 17:00 Actual Procedures p ORIF Hip/Cannulated Screws(Left) - Jae Victor MD Occupational Therapy Treatment Note M2 OT-IP Current Condition Start: 12/04/24 14:20 Freq: Status: Active Protocol: Document 12/04/24 14:21 CCC (Rec: 12/04/24 14:35 CCC [id number]) Occupational Therapy Current Condition Current Condition Evaluation Date 12/04/24 Treatment Diagnosis S/P L ORIF Diagnosis Onset Date 12/01/24 M3 OT- IP Subjective and Pain Start: 12/04/24 14:20 Freq: Status: Active Protocol: Document 12/15/24 16:35 CGR (Rec: 12/15/24 16:41 CGR [id number]) OT- Subjective Occupational Therapy Visit Type Type Treatment Note Visit Start Time 15:24 Visit Stop Time 15:56 OT Pain Assessment Pain When Pain Assessed At Rest Pain Present Pain Present Pain Reported Location left hip Scale Used did not rate Pain Behaviors Wincing Management Techniques Modification of Treatment,Re- positioning M4 OT- IP ADL's Start: 12/04/24 14:20 Freq: Status: Active Protocol: Document 12/15/24 16:35 CGR (Rec: 12/15/24 16:41 CGR [id number]) OT [id number]-Kfgyvyy General Evaluation Self-Feeding Ability Independent Areas Needing Assistance Drinking From Cup/Glass Comments OT Self-Feeding Comments sitting in chair OT ADL-Grooming Comments OT Grooming Comments not performed OT ADL-Oral Care Comments Oral Care Comments not performed OT ADL-Dressing General Eval Upper Body Dressing Ability Minimal Assistance Lower Body Dressing Ability Total Assistance Areas Needing Assistance Socks Comments OT Dressing Comments hospital gown and socks after shower OT ADL-Toileting Comments OT Toileting Comments not performed OT ADL-Bathing Bathing Type Bathing Type Shower General Evaluation Bathing Ability Moderate Assistance Areas Needing Assistance Wash/Dry Upper Body,Wash/Dry Lower Extremities Comments OT Bathing Comments assisted with washing hair as well. M5 OT- IP IADL's Start: 12/04/24 14:20 Freq: Status: Active Protocol: Document 12/04/24 14:21 [facility] (Rec: 12/04/24 14:35 [facility] [id number]) OT-Instrumental Activities of Daily Living Deficits IADL Deficits Identified Deficits Home Safety Awareness Awareness of Need for Assistance at Home Good Awareness Medication Management Medication Management Comments Pt is a bit groggy and at this time may need assist. Money Management Money Management Comments Pt is a bit groggy and at this time may need assist. Meal Preparation Meal Preparation Comments Pt will need assist. Foundation Digger Foundation Digger Comments Pt will need assist. M6 OT- IP Functional Cognition Start: 12/04/24 14:20 Freq: Status: Active Protocol: Document 12/10/24 17:44 [facility] (Rec: 12/10/24 17:51 [facility] [id number]) Cognitive Factors Limiting Selfcare Function Cognitive Ability Level of Alertness Alert,Confusional State Attention Span Ability Capable of Focused Attention, Capable of Sustained Attention Ability to Follow Commands Able to Follow One Step Commands Memory Description Short Term Impaired Cognitive Comments Cognitive Assessment Comments Pt still at times forgetful. Pt able to follow commands for bed mobility and toileting needs. M7 OT- IP Mobility and Balance Start: 12/04/24 14:20 Freq: Status: Active Protocol: Document 12/15/24 16:35 CGR (Rec: 12/15/24 16:41 CGR [id number]) OT- Bed Mobility Assessment Supine to Sit Supine to Sit Assist Standby Assistance Scooting Scooting to Edge of Bed Standby Assistance OT-Transfer Assessment Sit to and From Stand Sit to and from Stand Contact Guard Assistance Transfers Transfer Ability Contact Guard Assistance Technique Transfer Destination Bed,Bedside Commode,Chair, Shower Stall Transfer Technique Stand Step Pivot Devices Transfer Assistive Devices Gait Belt,Front Wheeled Walker Comments Mobility Comments Pt tranfered from bed to shower stall for shower seated on 3 in 1 then to chair at end of session. OT- Balance Assessment Sitting Balance and Reactions Static Sitting Balance Ability Good Dynamic Sitting Balance Ability Good M8 OT- IP Objective Assessments Start: 12/04/24 14:20 Freq: Status: Active Protocol: Document 12/04/24 14:21 [facility] (Rec: 12/04/24 14:35 [facility] [id number]) OT Gross Range of Motion Upper Extremity Range of Motion Assessment Within Functional Limits OT Strength Upper Extremity Strength Assessment Within Functional Limits M9 OT- IP Assessment and Plan Start: 12/04/24 14:20 Freq: Status: Active Protocol: Document 12/15/24 16:35 [facility]GR (Rec: 12/15/24 16:41 CGR [id number]) OT Summary Assessment and Plan Potential Rehabilitation Potential Good Analytic Complexity at Evaluation Moderate Summary OT Impairments Pain,Balance,Functional Mobility,Grooming,Dressing, Toileting,Bathing,Toilet Transfers,Shower Transfers, Activity Tolerance Progress Towards Goals Progressing Toward Goals,Slow Progress due to Medical Issues Assessment Summary Pt with increase in her abilities today and requesting to get up to shower. Pt able to participate in showering with assist and returned to sitting in chair at end of session. Call button within reach at end of session. Goals Self-Feeding Goal Independent Grooming Goal Independent Dressing Goal Independent Toileting Goal Independent Bathing Goal Independent Toilet Transfer Goal Independent Shower Transfer Goal Independent Days to Meet Goals 19 Frequency of Treatment Other frequency 5x/week Treatment Plan OT Treatment Plan ADL Training,Functional Mobility,Patient/Family Education,Discharge Planning Other Treatment Recommendations and Next standing ADL's at sink with Treatment Focus FWW Discharge Recommendations OT Discharge Recommendations SNF Rehab Transportation Needs at Discharge Wheelchair/Cabulance
--- NOTE | 2024-12-15 17:10 | PC.NURSE ---
Assuming care of patient for rest of day shift. Patient was up in chair, requesting to get back to bed, would like to have dinner in bed per her request. Patient using walker and minimal assistance to get back to bed, call light placed within reach and bed alarm on for safety. Patient states her pain is a 7 all over but other than get back to bed she would not like to do anything else at this time. Will continue to follow.
[2024-12-15] MEDS: ACETAMINOPHEN 325 MG TABLET 975 MG PO (20:17)
[2024-12-16 07:00] VITALS: BP 128/53; PULSE 90; RESP 18; TEMP 36; O2SAT 96
[2024-12-16] MEDS: BUDESONIDE 0.5 MG/2 ML NEB INH (07:35)
[2024-12-16] MEDS: ALBUTEROL/IPRATROPIUM 3 ML AMPUL INH (07:35)
[2024-12-16 07:43] VITALS: PULSE 88; RESP 16; O2SAT 96
[2024-12-16] MEDS: CLOPIDOGREL 75 MG TABLET PO (08:35)
[2024-12-16] MEDS: AMLODIPINE 5 MG TABLET 10 MG PO (08:35)
[2024-12-16] MEDS: DOCUSATE 100 MG CAPSULE PO (08:35)
[2024-12-16] MEDS: ASPIRIN EC 81 MG TABLET PO (08:35)
--- NOTE | 2024-12-16 09:00 | PM.DS.1 ---
History of Present Illness History of Present Illness Chief complaint: Fall at 0700, Left hip pain Narrative: From H&P: 69-year-old female with a history of COPD type 2 diabetes obesity chronic kidney disease had a ground level fall this morning late on the hard floor waiting for the pain to subside which did not. Eventually patient was brought to the emergency department for an evaluation. Findings in the ER significant for left femoral neck fracture nondisplaced. Case was discussed with anesthesia and Orthopedic surgery the consensus was to get a CT to evaluate to see if it requires surgery or could be managed conservatively. Discharge Providers Provider Date of admission: 12/01/24 16:43 Discharge Date: 12/16/24 Primary care physician: Alejandrina Mojica PA-C Consults: 12/02/24 06:00 Consult to Orthopedic Surgery Routine Comment: Consulting Provider: Jae Victor Reason for consultation: L femur fracture - per MD Bryant notes/report Has provider been notified: Yes 12/03/24 19:01 Consult to Discharge Planning Routine Comment: Consult to Occupational Therapy Evaluate & Treat Comment: Physician Instructions: Evaluate and treat Consult to Physical Therapy Evaluate & Treat Comment: Physician Instructions: Evaluate and Treat 12/07/24 08:01 Consult to Dietitian, Adult Routine Comment: Reason For Exam: Recent weight loss, lack of appetite Discharge provider: Gilberto Pop MD Summary Hospital Course Discharge Diagnosis: 1. Acute hypoxic respiratory failure On chronic hypoxic respiratory failure, new and improved. Suspect she has chronic hypoxia secondary to her severe COPD. She was successfully weaned down to 2-3 L of supplemental oxygen yesterday. Overall, much improved. 2. Acute metabolic encephalopathy , new and improving. Suspect this is multifactorial secondary to prolonged hospital stay, hip fracture and repair, opioids, anesthesia, infections. Continue scheduled Tylenol and as needed tramadol. Haldol was ordered as needed for delirium, but she did not require any. She is significantly improved today, increasing the likelihood that her symptoms were related to impaired hypoxic respiratory drive from too much supplemental oxygen. 3. Severe COPD , active and stable. Continue budesonide nebulizers and DuoNebs to q.i.d.. 4. Unintentional weight loss Unclear etiology though certainly could be pulmonary cachexia. She was not seen in our hospital during that time period and is unable to provide any additional history 5. Possible aspiration pneumonia, new and resolved. 6. Covid positive screen 12/15. Hospital Course: She was a 69-year-old female with history of COPD and diabetes as well as chronic kidney disease. She had a ground level fall and resulting left femoral neck fracture. She was noted to be hypotensive and have a loud systolic murmur in the OR in the case was stopped. She was evaluated with echo which was negative for critical aortic stenosis and her pressures improved with IV fluids. She underwent an operative repair of the hip without complication and her postoperative course was complicated by acute hypoxic respiratory failure and severe altered mental status. She was treated for pneumonia and evaluated multiple times for hypercarbia but never had evidence of this. She required high-flow for many days for hypoxemia. Multiple PaO2 is were in the 40s on her nasal cannula oxygen. Ultimately she was able to wean off from high-flow oxygen and had no further indications of infection. A CTA was negative for pulmonary embolism or infiltrate. She was treated for possible pneumonia with a full course of antibiotics. It was unclear if this was consistent with aspiration or a hospital acquired pneumonia. Again imaging did not verify infiltrate. Ultimately she was felt to be stable for transfer to custodial facility for ongoing rehabilitation efforts. Covid screen for SNF was POSITIVE on 12/15. Status at Discharge Cognitive/behavioral status at discharge: oriented Functional status at discharge: uses cane/walker Overall status at discharge: patient is progressing back to baseline Time Spent with Patient Time spent: Greater than 30 minutes Exam Vital Signs (past 8 hours): - 12/16/24 07:00 12/16/24 07:43 Temperature 96.8 F L Pulse Rate 90 88 Respiratory Rate 18 16 Blood Pressure 128/53 L Pulse Oximetry 96 96 Oxygen Flow Rate 2 3 Fraction of Inspired Oxygen 32 SaO2/FiO2 Ratio 303 Oxygen Delivery Method Nasal Cannula Oxygen Flow Rate 3 Narrative Exam Narrative: NAD, alert and oriented. Fluent speech. Lungs are clear, normal rate and effort. Heart is regular, no murmur gallop or rub. Abdomen is soft, non distended. Extremities are free of edema. Objective Imaging Multiple studies:: Radiologist's impression: Chest CTA: 1. No CT evidence of pulmonary embolism to the segmental level. 2. Severe emphysema. 3. Likely hepatic steatosis. Chest x-ray: Emphysema. Otherwise, no acute cardiothoracic process. Hip x-ray: Intraoperative views during left hip ORIF. Hardware appears in appropriate position. Echo: The ejection fraction is estimated to be 60-65%. Diastolic function could not be accurately assessed due to confounding valvular disease. The right ventricle is normal in size and function. There is mild mitral stenosis. Pulmonary artery pressures cannot be estimated because of the lack of a measurable TR jet velocity but the IVC suggests a CVP of around [address]: Impacted, otherwise nondisplaced subcapital left femoral neck fracture. Labs 12/14/24 05:20 12/14/24 05:20 Labs: Laboratory Results - last 24 hr 12/15/24 11:55 SARS-CoV-2 (PCR) Positive H [facility] Social History household members: spouse Smoking Status: Former smoker alcohol intake: never Discharge Assessment & Plan Assessment and Plan Assessment: 1. Acute hypoxic respiratory failure On chronic hypoxic respiratory failure, new and improved. Suspect she has chronic hypoxia secondary to her severe COPD. She was successfully weaned down to 2-3 L of supplemental oxygen yesterday. Overall, much improved. 2. Acute metabolic encephalopathy , new and improving. Suspect this is multifactorial secondary to prolonged hospital stay, hip fracture and repair, opioids, anesthesia, infections. Continue scheduled Tylenol and as needed tramadol. Haldol was ordered as needed for delirium, but she did not require any. She is significantly improved today, increasing the likelihood that her symptoms were related to impaired hypoxic respiratory drive from too much supplemental oxygen. 3. Severe COPD , active and stable. Continue budesonide nebulizers and DuoNebs to q.i.d.. 4. Unintentional weight loss Unclear etiology though certainly could be pulmonary cachexia. She was not seen in our hospital during that time period and is unable to provide any additional history 5. Possible aspiration pneumonia, new and resolved. 6. Covid screen for SNF POSITIVE 12/15. Plan of Treatment: Discharge to [facility] custodial facility for rehabilitative efforts. She is on 2 L of oxygen (she is on 2 liters chronically). Discharge Plan Discharge Plan Patient Disposition: SNF Transfer to: [facility] Under care of provider: Dr. Borrego. Provider Discharge Comment: Stable for discharge to custodial facility for rehabilitative efforts. Discharge orders & Medications Prescriptions: New acetaminophen 325 mg Tablet 650 mg PO Q6H Qty: 1 0RF ipratropium-albuterol 0.5 mg-3 mg(2.5 mg base)/3 mL Solution For Nebulization 3 ml INH Q1H PRN (Reason: Shortness Of Breath) Qty: 30 0RF bisacodyl 10 mg Suppository 10 mg LA DAILY PRN (Reason: Constipation) Qty: 12 0RF docusate sodium 100 mg Capsule 100 mg PO BID Qty: 1 0RF polyethylene glycol 3350 17 gram Powder In Packet 17 g PO DAILY Qty: 14 0RF sennosides [senna] 8.6 mg Tablet 17.2 mg PO BEDTIME Qty: 1 0RF ipratropium-albuterol 0.5 mg-3 mg(2.5 mg base)/3 mL Solution For Nebulization 3 ml INH [id number] Qty: 10 0RF oxycodone 5 mg capsule 5 mg PO Q8H PRN (Reason: pain) Qty: 14 0RF Continued clopidogrel 75 mg tablet 75 mg PO DAILY Medication counseling provided by Pharmacist: No Follow up/Referrals: Matt Owusu ARNP [Non-Staff] - 12/30/24 8:40 am (APPT:12/30 @ 8:40 am with Jose R PITT please arrive 15 min prior to your scheduled appointment time ) Jae Victor MD [Physician] - 1 Month (Jake can be removed in hospital. F/u w/ Dr Victor at [facility] before the end of December for repeat imaging.) Alejandrina Mojica PA-C [Primary Care Provider] - Discharge Health Status Multidrug resistant organism: Other Precautions: Droplet Diet/Activity/Treatments Diet: Regular and Carb-consistent/Diabetic Food texture: Regular Activity: As tolerated. Oxygen: 3LNC continuous Skin/Wound/Dressing Care Dressing: Remove jake prior to discharge to SNF. Soft dressing as needed over incision. Special Rehabilitation Services Reason for rehabilitation: Post-operative therapy Rehab type: Physical therapy and Occupational therapy Restrictions to mobility: WBAT Visit Report/Discharge Packet Instructions: DI for Open Reduction Internal Fixation Surgery Stand Alone Forms: Patient Portal/API Discharge Data Primary Care Provider: Alejandrina Mojica VTE Deep Vein Thrombosis/Pulmonary Embolism Present on Admission: No
--- NOTE | 2024-12-16 10:22 | CM.DPC ---
DCP Cont. Reviewed EMR and team rounds for status updates. Pt has been medically cleared for d/c to [facility] today. S will transport her today at 11:00am. D/c clinicals and PASSAR faxed. No further d/c needs are identified at this time.
--- NOTE | 2024-12-16 11:22 | PC.NURSE ---
Report given to MICHELLE. Pt ambulated to stretcher. Report given to Reén at [facility]- all questions answered.
== END 2024-12-16 11:15 | DRG 480 ==
LOC: ED 16:29 → AC 16:45
PROVIDERS: Family Medicine; Hospitalist; Internal Medicine; Orthopaedic Surgery Adult Reconstructive Orthopaedic Surgery; Admitting Provider Internal Medicine; Emergency Provider Emergency Medicine; PCP Physician Assistant Medical; Referring Provider Emergency Medicine; Visit Provider Internal Medicine
PROC: 0QH734Z Insertion of Internal Fixation Device into Left Upper Femur, Percutaneous Approach (ICD-10-PCS; principal; 2024-12-03 17:00)
DX: S72.012A Unspecified intracapsular fracture of left femur, initial encounter for closed fracture (principal); A41.9 Sepsis, unspecified organism; E43 Unspecified severe protein-calorie malnutrition; G93.41 Metabolic encephalopathy; J96.21 Acute and chronic respiratory failure with hypoxia; U07.1 COVID-19; J69.0 Pneumonitis due to inhalation of food and vomit; J18.9 Pneumonia, unspecified organism; R65.20 Severe sepsis without septic shock; N39.0 Urinary tract infection, site not specified; J44.0 Chronic obstructive pulmonary disease with (acute) lower respiratory infection; Z16.24 Resistance to multiple antibiotics; E11.22 Type 2 diabetes mellitus with diabetic chronic kidney disease; I95.9 Hypotension, unspecified; B96.20 Unspecified Escherichia coli [E. coli] as the cause of diseases classified elsewhere; N18.30 Chronic kidney disease, stage 3 unspecified; W18.30XA Fall on same level, unspecified, initial encounter; Z79.02 Long term (current) use of antithrombotics/antiplatelets; Z86.73 Personal history of transient ischemic attack (TIA), and cerebral infarction without residual deficits; Z68.25 Body mass index [BMI] 25.0-25.9, adult; Z87.891 Personal history of nicotine dependence
CPT/HCPCS: 36415; 36600; 71045; 71275; 72192; 73502; 76000; 80048; 80053; 81001; 82140; 82550; 82805; 82962; 83036; 83605; 83735; 85025; 85027; 85610; 87040; 87077; 87086; 87186; 87635; 93005; 93010; 93306; 94640; 94760; 94762; 96361; 96374; 96376; 97110; 97129; 97162; 97166; 97530; 97535; 99284; 99291; C1713; J0690; J0692; J0696; J1100; J1171; J1644; J1815; J1940; J1956; J2405; J2704; J3010; J3490; J7050; Q9967